=== PATIENT | female | born 1970 | race Caucasian/White ===

== ENCOUNTER 2019-11-21 13:31 | Inpatient (IN) | payer OTHER, SELFPAY ==
[2019-11-21 14:24] LABS: Glucose Urine UA NEG (NEG); Leukocyte Esterase Urine 1+ (NEG); Nitrite Urine NEG (NEG); Urine Blood 2+ (NEG); Urine Ketones NEG (NEG); Urine Protein NEG (NEG-TRACE)
[2019-11-21 14:31] LABS: Appearance Urine HAZY; Color Urine YELLOW
[2019-11-21 14:49] VITALS: BP 136/70; PULSE 70; RESP 16; TEMP 36.7; O2SAT 100; BMI 36.6
[2019-11-21 14:56] LABS: Squamous Epithelial Cell Urine 2+ /LPF
[2019-11-21 14:57] LABS: Amorphous Sediment Urine 1+ /LPF
--- NOTE | 2019-11-21 16:06 | ED_ITS ---
HPI - Female Genitourinary General Chief complaint: Urogenital-Female Stated complaint: FLANK PAIN Time Seen by Provider: 11/21/19 16:02 Source: patient Mode of arrival: ambulatory Limitations: no limitations History of Present Illness HPI Narrative: 49 y/o female presenting with dysuria and low back pain that started today. She also reports urinary frequency and urgency. She reports back pain is worse with movement and when reaching back to touch it. She denies fevert, chills, N/V/D, abdominal pain. No vaginal discharge or vaginal bleeding. No hematuria. Positive history of kidney stones in the past requiring lithotripsy. Related Data Home Medications Medication Instructions Recorded Confirmed amitriptyline 25 mg tablet 25 mg PO BEDTIME 11/06/19 oxybutynin chloride 10 mg 10 mg PO BID 11/06/19 tablet,extended release 24 hr topiramate 50 mg tablet 50 mg PO DAILY 11/06/19 Previous Rx's Medication Instructions Recorded nitrofurantoin monohyd/m-cryst 100 mg PO Q12H 7 Days #14 cap 11/21/19 [Macrobid] phenazopyridine [Pyridium] 100 mg PO TID PRN #6 tab 11/21/19 Allergies Allergy/AdvReac Type Severity Reaction Status Date / Time Latex, Natural Rubber Allergy Intermediate RASH Unverified 10/26/19 18:39 [LATEX, NATURAL RUBBER] Review of Systems Review of Systems: Constitutional: No Fever, No Chills ENT/Mouth: No sore throat, No Rhinorrhea, No Swallowing Difficulty Eyes: No Eye Pain, No Swelling, No Redness Cardiovascular: No Chest Pain, No SOB, No Orthopnea, No Edema Respiratory: No Cough, No Sputum, No Wheezing, No dyspnea Gastrointestinal: No Nausea, No Vomiting, No Diarrhea, No abdominal Pain, No Hematochezia, No Melena Genitourinary: + Dysuria, + Urinary Frequency, No Hematuria Musculoskeletal: No joint pain, +Myalgias (left lwower back) Skin: No Skin Lesions, No rash Neuro: No Weakness, No Numbness, No Dizziness, No Headache Psych: No Anxiety/Panic, No Depression Heme/Lymph: No Bruising, No Lymphadenopathy Endocrine: + Polyuria, No Polydipsia PMFSH Past Medical History Attestation statement: The following information was validated with the patient. Surgical History Hx of laparoscopy Hx of lithotripsy Hx of tubal ligation Family History Family History (Updated 11/06/19 @ 17:08 by Mandi Radford Theron) Mother Hx of diabetes mellitus Maternal Grandfather Family hx of prostate cancer Paternal Uncle Family hx of prostate cancer History of skin cancer Social History Social History Smoking Status: Never smoker Use of substances other than those prescribed or required for medical reasons: No Advance Directives: No Advance Directives Information Provided: No Physical Exam Vital Signs: Vital Signs: Vital Signs Temp Pulse Resp BP Pulse Ox 11/21/19 18:00 97.9 F 84 16 126/78 99 11/21/19 14:49 98.0 F 70 16 136/70 100 Body Mass Index 36.6 Appearance: Alert. Oriented X3. No acute distress. Eyes: Pupils equal, round and reactive to light. ENT: Pharynx normal. Neck: Normal inspection. Neck supple. CVS: Normal heart rate and rhythm. Pulses normal. Respiratory: No respiratory distress. Breath sounds normal. Abdomen: Soft and nontender. +BS x4 Skin: Skin warm and dry. Normal skin color. Normal skin turgor. No rashes. Back: normal inspection. No CVA tenderness. Left lumbar soft tissue tenderness. full ROM. Extremities: No lower extremity edema. Neuro: Oriented X 3. No motor deficit. No sensory deficit. exam deferred Course Course Course Narrative: patient presenting with 1 day of dysuria and low back pain. she appears non-toxic and VS are within normal limits. Exam reveals no CVA tendernss. Less likely kidney stones or pyelonephritis. UA pending. Reevaluation(s) Reevaluation #1: UA positive for infection and blood. She is requesting a CT scan to evaluate for kidney stones. She has a history of them and reports that the pain she was experiencing this morning was similar to her previous experience. She denies pain at this time and appears well. Reevaluation #2: CT scan shows: Bilateral hydronephrosis. Hydronephrosis is more significant in the right kidney than the left. The hydronephrosis is due to obstructing stones in both collecting systems. The stone on the right is in the distal right ureter measuring 1.4 x 0.6 cm. The stone the left measures 2 mm at the left ureterovesical junction. She will liekly require admission for intervention. Labs, IVF, IV abx ordered. Will sign out to Nimisha Dee to call hospitalist when workup complete for admission. Will need to touch base with Urology as well. Signed out to Nimisha Dee LEAD SYSTEMS ENGINEER for further management. MDM - Female Genitourinary Differential Diagnosis Differential diagnosis: Likely urinary tract infection, bacterial vaginosis, trichomoniasis, cervicitis, ovarian cyst, vaginitis, ruptured ovarian cyst, cyst of Bartholin's gland, cystitis and dysmenorrhea Medical Records Attestation: I reviewed the patient's medical records. Lab Data Labs: Lab Results 11/21/19 Range/Units 14:02 Urine Color YELLOW Urine Appearance HAZY Urine pH 6.0 (5.0-8.0) Ur Specific [place] 1.020 (1.005-1.025) Urine Protein NEG (NEG-TRACE) MG/DL Urine Glucose (UA) NEG (NEG) MG/DL Urine Ketones NEG (NEG) MG/DL Urine Blood 2+ H (NEG) Urine Nitrite NEG (NEG) Ur Leukocyte Esterase 1+ H (NEG) Urine RBC 10-14 H (0) /HPF Urine WBC 10-14 H (0-4) /HPF Ur Squamous Epith Cells 2+ /LPF Amorphous Sediment 1+ /LPF Urine Bacteria NONE /LPF Critical Care Time Critical Care Time Critical Care Time: No Discharge Plan Discharge Clinical Impression: Urinary tract infection Qualifiers: Urinary tract infection type: acute cystitis Hematuria presence: with hematuria Qualified Code(s): N30.01 - Acute cystitis with hematuria Patient Disposition: Home, Self-Care Instructions: Urinary Tract Infection in Women (ED) Additional Instructions: Stay hydrated. No sexual contact for at least 1 week. If you have worsening pain despite antibiotics, call your doctor or come back to the ER for further evaluation. Prescriptions: New nitrofurantoin monohyd/m-cryst [Macrobid] 100 mg capsule 100 mg PO Q12H 7 Days Qty: 14 RF: 0 phenazopyridine [Pyridium] 100 mg tablet 100 mg PO TID PRN (Reason: pain) Qty: 6 RF: 0
--- NOTE | 2019-11-21 16:38 | CT_ITS ---
EXAMINATION: CT ABDOMEN AND PELVIS WITHOUT CONTRAST CLINICAL INFORMATION: left flank pain +UA, hx kidney stones requiring lithotripsy COMPARISON: CT abdomen pelvis 01/13/2014 TECHNIQUE: Multidetector volumetric imaging was performed from the superior aspect of the liver through the pubic symphysis. Sagittal and coronal reformatted images were obtained on the technologist's workstation. This CT examination was performed using dose optimization techniques as appropriate, variously including the following: *Automated exposure control *Adjustment of mA and/or kV according to patient size (this includes techniques or standardized protocols for targeted exams where dose is matched to indication/reason for exam; i.e. extremities or head) *Use of iterative reconstruction technique DLP: 810 mGy-cm FINDINGS: LUNG BASES: The visualized lung bases are unremarkable. LIVER, GALLBLADDER, AND BILIARY TREE: The liver is normal in size, shape, and attenuation. No focal hepatic lesion or biliary ductal dilatation is present. The gallbladder is unremarkable with no evidence of radiopaque gallstones, gallbladder wall thickening, or obvious pericholecystic inflammatory changes. PANCREAS: Unremarkable. SPLEEN: Unremarkable. ADRENAL GLANDS: Unremarkable. KIDNEYS AND URETERS: Right kidney: There is moderate to marked hydronephrosis of right kidney with distention renal pelvis and calyces and the right-sided hydroureter. This is due to an obstructing stone in the proximal right ureter at the level the pelvic brim. This stone measures 1.4 cm in length by 0.6 cm transverse, sagittal image 76. No additional stone in the right collecting system. Left kidney: There is mild hydronephrosis of left kidney. There is distention of the renal pelvis calyces and the left ureter to the ureterovesical junction. There is a 2 mm obstructing stone the left ureterovesical junction axial image 652 series 4. There is no additional stone in the left collecting system. BLADDER: Unremarkable. GASTROINTESTINAL TRACT: The small and large bowel are unremarkable. The appendix is unremarkable. ABDOMINAL WALL: No significant hernia is appreciated. LYMPH NODES: Normal. VASCULAR: Unremarkable. PELVIC VISCERA: Unremarkable. OSSEOUS STRUCTURES: Unremarkable. IMPRESSION: Bilateral hydronephrosis. Hydronephrosis is more significant in the right kidney than the left. The hydronephrosis is due to obstructing stones in both collecting systems. The stone on the right is in the distal right ureter measuring 1.4 x 0.6 cm. The stone the left measures 2 mm at the left ureterovesical junction.
[2019-11-21 18:00] VITALS: BP 126/78; PULSE 84; RESP 16; TEMP 36.6; O2SAT 99
[2019-11-21] MEDS: cefTRIAXone sodium 1 GM in 0.9 % Sodium Chloride 50 ML IV (19:08)
[2019-11-21] MEDS: 0.9 % Sodium Chloride 1,000 ML 999 ML IVCONT (19:08)
[2019-11-21] MEDS: dexAMETHasone sod phosphate 4 MG/ML VIAL 8 MG IVPUSH (19:08)
[2019-11-21] MEDS: Tamsulosin HCL 0.4 MG CAPSULE PO (19:08)
[2019-11-21] MEDS: Ketorolac Tromethamine 30 MG/ML VIAL IVPUSH (19:10)
[2019-11-21 19:11] LABS: MANUAL DIFF FLAG NO
[2019-11-21 19:12] LABS: Basophils Percent Auto 0.2 % (0-2); Eosinophils Percent Auto 0.1 % (0-4); Hematocrit 40.2 % (37-47); Hemoglobin 13.4 g/dl (12.0-16.0); Imm Gran Abs Auto 0.07 X10*3/uL (0.00-0.03); Imm Gran Pct Auto 0.4 % (0.0-0.4); Lymphocytes Absolute Auto 2.4 X10*3/uL (1.2-4.9); Lymphocytes Percent Auto 14.6 % (20-40); Mean Corpuscular HGB Conc 33.3 g/dl (31.0-35.0); Mean Corpuscular Hemoglobin 29.6 pg (27.0-33.0); Mean Corpuscular Volume 88.7 fL (80-98); Mean Platelet Volume 9.7 fL (9.4-12.3); Monocytes Absolute Auto 0.6 X10*3/uL (0.1-1.2); Monocytes Percent Auto 3.6 % (2-11); Neutrophils Absolute Auto 13.4 X10*3/uL (2.0-8.3); Neutrophils Percent Auto 81.1 % (45-73); Platelet Count 290 X10*3/uL (160-400); Red Blood Count 4.53 X10*6/uL (4.20-5.50); Red Cell Distribution Width 13.1 % (11.0-16.0); White Blood Count 16.5 X10*3/uL (4.8-10.8)
[2019-11-21 19:22] LABS: INTERNATIONAL NORM RATIO 1.1 (0.9-1.1)
[2019-11-21 19:24] LABS: Partial Thromboplastin Time 34.7 SEC (24.1-38.0)
[2019-11-21 19:57] LABS: Anion Gap 17 (12-20); Blood Urea Nitrogen 11 mg/dL (9-16); Calcium 9.2 mg/dL (8.4-10.2); Carbon Dioxide 20 mmol/L (22-29); Chloride 104 mmol/L (96-108); Creatinine Clr Calc Pharmacy 82.9; Estimated Glomerular Filt Rate > 60; Glucose Random 98 mg/dL (60-115); Potassium 4.2 mmol/l (3.3-5.1); Sodium 137 mmol/L (135-145)
[2019-11-21 20:00] VITALS: BP 130/71; PULSE 83; RESP 16; TEMP 36.8; O2SAT 98
--- NOTE | 2019-11-21 20:00 | PM.IMHP ---
History of Present Illness Date of Service: 11/21/19 <Christy Mathews NP - Last Filed: 11/21/19 20:17> Chief Complaint: Flank pain <Christy Mathews NP - Last Filed: 11/21/19 20:17> 49-year-old woman presented to the ER with complaints of abdominal and flank pain. She reports that over the last several days she has had left-sided flank pain with dysuria and frequency of urine along with nausea. She denies fever, chills, nausea, vomiting, diarrhea however she did report some dizziness. She does have a history of renal stones in the past with lithotripsy in [place]. Abdominal pelvic CT showed bilateral hydronephrosis more to the right kidney. She does have an obstructive stone in both collecting systems. She has a 2 mm stone to the left at the left ureterovesical junction. She is noted to have an elevated whiteblood cell count 16.5. Positive urinalysis. No fever. She was given tamsulosin, IV fluids, dexamethasone, ceftriaxone and Toradol. She will be admitted for further management treatment of UTI with obstructive stone. <Christy Mathews NP - Last Filed: 11/21/19 20:17> Review of Systems Review of Systems: Reports fever, chills respiratory denies any shortness of breath coverage production cardiovascular is adjustment of any PND or edema gastrointestinal nausea genitourinary see HPI musculoskeletal denies any joint pain or swelling neuropsych denies any weakness or seizures all other systems reviewed are negative <Christy Mathews NP - Last Filed: 11/21/19 20:17> [facility] Medical History: Medical History Depression Renal calculi <Christy Mathews NP - Last Filed: 11/21/19 20:17> Functional capacity: independent ambulation <Christy Mathews NP - Last Filed: 11/21/19 20:17> Family History: Family History Mother Hx of diabetes mellitus Maternal Grandfather Family hx of prostate cancer Paternal Uncle Family hx of prostate cancer History of skin cancer <MAMTA Saucedo Last Filed: 11/21/19 20:17> Surgical History: Surgical History Hx of laparoscopy Hx of lithotripsy Hx of tubal ligation <Christy Mathews NP - Last Filed: 11/21/19 20:17> Social History: Social History Household Members: Children Housing: House Smoking Status: Never smoker <Christy Mathews NP - Last Filed: 11/21/19 20:17> Meds Allergies/Adverse reactions: Allergies Allergy/AdvReac Type Severity Reaction Status Date / Time Latex, Natural Rubber Allergy Intermediate RASH Verified 11/21/19 19:38 [LATEX, NATURAL RUBBER] <Christy Mathews NP - Last Filed: 11/21/19 20:17> Home medications: Home Medications Medication Instructions Recorded Confirmed Type amitriptyline 25 mg tablet 25 mg PO BEDTIME 11/06/19 11/21/19 History oxybutynin chloride 10 mg 10 mg PO BID 11/06/19 11/21/19 History tablet,extended release 24 hr topiramate 50 mg tablet 50 mg PO DAILY 11/06/19 11/21/19 History nabumetone 750 mg PO BID PRN 11/21/19 11/21/19 History sumatriptan succinate [Imitrex] 100 mg PO DAILY PRN 11/21/19 11/21/19 History <Christy Mathews NP - Last Filed: 11/21/19 20:17> Physical Exam Vital Signs and Narrative: Vital Signs: Last Vital Signs Temp 97.9 F 11/21/19 18:00 Pulse 84 11/21/19 18:00 Resp 16 11/21/19 18:00 BP 126/78 11/21/19 18:00 Pulse Ox 99 11/21/19 18:00 Body Mass Index 36.6 <Christy Mathews NP - Last Filed: 11/21/19 20:17> Appearing in no acute distress head is normocephalic atraumatic eyes pupils are PERRLA sclera is anicteric mouth throat mucous membranes are intact and moist neck is supple no lymphadenopathy, no JVD noted lung sounds are clear to auscultation heart regular rate rhythm, clear S1, S2 positive bowel sounds, abdomen is soft, nontender genitourinary left-sided flank pain, lower abdominal pain. neuro patient is alert x3, no focal deficits <Christy Mathews NP - Last Filed: 11/21/19 20:17> Results Labs Labs: Laboratory Tests 11/21/19 11/21/19 11/21/19 14:02 19:02 19:02 WBC 16.5 H RBC 4.53 Hgb 13.4 Hct 40.2 MCV 88.7 MCH 29.6 MCHC 33.3 RDW 13.1 Plt Count 290 MPV 9.7 Immature Gran % (Auto) 0.4 Neut % (Auto) 81.1 H Lymph % (Auto) 14.6 L [place] % (Auto) 3.6 Eos % (Auto) 0.1 Baso % (Auto) 0.2 Lymph # (Auto) 2.4 [place] # (Auto) 0.6 Eos # (Auto) 0.0 Baso # (Auto) 0.0 Abs Immat Gran (auto) 0.07 H Absolute Neuts (auto) 13.4 H Absolute Nucleated RBC 0.000 Nucleated RBC % (auto) 0.0 PT 13.0 INR 1.1 APTT 34.7 Sodium Potassium Chloride Carbon Dioxide Anion Gap BUN Creatinine Estim Creat Clear Calc Estimated GFR Random Glucose Calcium Urine Color YELLOW Urine Appearance HAZY Urine pH 6.0 Ur Specific [place] 1.020 Urine Protein NEG Urine Glucose (UA) NEG Urine Ketones NEG Urine Blood 2+ H Urine Nitrite NEG Ur Leukocyte Esterase 1+ H Urine RBC 10-14 H Urine WBC 10-14 H Ur Squamous Epith Cells 2+ Amorphous Sediment 1+ Urine Bacteria NONE 11/21/19 19:02 WBC RBC Hgb Hct MCV MCH MCHC RDW Plt Count MPV Immature Gran % (Auto) Neut % (Auto) Lymph % (Auto) [place] % (Auto) Eos % (Auto) Baso % (Auto) Lymph # (Auto) [place] # (Auto) Eos # (Auto) Baso # (Auto) Abs Immat Gran (auto) Absolute Neuts (auto) Absolute Nucleated RBC Nucleated RBC % (auto) PT INR APTT Sodium 137 Potassium 4.2 Chloride 104 Carbon Dioxide 20 L Anion Gap 17 BUN 11 Creatinine 0.86 Estim Creat Clear Calc 82.9 Estimated GFR > 60 Random Glucose 98 Calcium 9.2 Urine Color Urine Appearance Urine pH Ur Specific [place] Urine Protein Urine Glucose (UA) Urine Ketones Urine Blood Urine Nitrite Ur Leukocyte Esterase Urine RBC Urine WBC Ur Squamous Epith Cells Amorphous Sediment Urine Bacteria <Christy Mathews NP - Last Filed: 11/21/19 20:17> Assessment and Plan (1) Urinary tract infection: Qualifiers: Hematuria presence: with hematuria Urinary tract infection type: acute cystitis Qualified Code(s): N30.01 - Acute cystitis with hematuria <Christy Mathews NP - Last Filed: 11/21/19 20:17> Problem details: Likely staph saprophyticus pathogen Not bacteremic by report <Crhisty Mathews NP - Last Filed: 11/21/19 20:17> Status: Acute <Christy Mathews NP - Last Filed: 11/21/19 20:17> (2) Calculus of kidney: Status: Acute <Christy Mathews NP - Last Filed: 11/21/19 20:17> (3) Hydronephrosis: Qualifiers: Hydronephrosis type: unspecified Qualified Code(s): N13.30 - Unspecified hydronephrosis <Christy Mathews NP - Last Filed: 11/21/19 20:17> Status: Acute <Christy Mathews NP - Last Filed: 11/21/19 20:17> 49-year-old woman admitted with UTI with bilateral hydronephrosis and 2 mm obstructive stone. Hydronephrosis. Urology consultation. Will likely need lithotripsy for removal of stone. Pyelonephritis. Continues with left flank pain, occasional nausea. Rocephin, follow urine cultures. Depression. Continue home medications. Migraine headaches. Continue Imitrex. DVT prophylaxis with heparin Discussed with Dr. Van Full code <Christy Mathews NP - Last Filed: 11/21/19 20:17>
--- NOTE | 2019-11-21 21:53 | PC.NURSE ---
REPORT CALLED TO BON WALDEN.
--- NOTE | 2019-11-21 21:59 | PC.NURSE ---
BELONGINGS LIST COMPLETE
--- NOTE | 2019-11-21 23:03 | PC.NURSE ---
HOSPITALIST AWARE THAT SHE PUT TRANSFER ORDER ON WRONG PATIENT. INSTRUCTED BY CHARGE NURSE SADIQ TO BRING PATIENT UP TO ROOM. HOSPITALIST AWARE SHE NEEDS TO PUT TRANSFER IN ON CORRECT PATIENT.
[2019-11-21 23:14] VITALS: BP 165/70; PULSE 95; RESP 19; TEMP 36.4; O2SAT 98
[2019-11-21 23:20] VITALS: TEMP 36
[2019-11-21] MEDS: 0.9 % Sodium Chloride 1,000 ML 100 ML IVCONT (23:21)
[2019-11-22] VITALS (13 sets, daily range): BP systolic 85–134; BP diastolic 47–76; PULSE 69–108; RESP 16–19; TEMP 36–37.2; O2SAT 93–99; BMI 36.6
[2019-11-22 07:00] LABS: MANUAL DIFF FLAG NO
[2019-11-22 07:11] LABS: Basophils Percent Auto 0.1 % (0-2); Hematocrit 37.5 % (37-47); Hemoglobin 12.4 g/dl (12.0-16.0); Imm Gran Abs Auto 0.07 X10*3/uL (0.00-0.03); Imm Gran Pct Auto 0.5 % (0.0-0.4); Lymphocytes Absolute Auto 1.6 X10*3/uL (1.2-4.9); Lymphocytes Percent Auto 12.1 % (20-40); Mean Corpuscular HGB Conc 33.1 g/dl (31.0-35.0); Mean Corpuscular Hemoglobin 29.5 pg (27.0-33.0); Mean Corpuscular Volume 89.1 fL (80-98); Mean Platelet Volume 10.1 fL (9.4-12.3); Monocytes Absolute Auto 0.3 X10*3/uL (0.1-1.2); Monocytes Percent Auto 2.4 % (2-11); Neutrophils Absolute Auto 11.3 X10*3/uL (2.0-8.3); Neutrophils Percent Auto 84.9 % (45-73); Platelet Count 297 X10*3/uL (160-400); Red Blood Count 4.21 X10*6/uL (4.20-5.50); Red Cell Distribution Width 12.9 % (11.0-16.0); White Blood Count 13.4 X10*3/uL (4.8-10.8)
[2019-11-22] MEDS: 0.9 % Sodium Chloride 1,000 ML 100 ML IVCONT ×2 (07:20→17:08)
[2019-11-22 07:31] LABS: Anion Gap 12 (12-20); Blood Urea Nitrogen 13 mg/dL (9-16); Calcium 8.7 mg/dL (8.4-10.2); Carbon Dioxide 24 mmol/L (22-29); Chloride 109 mmol/L (96-108); Estimated Glomerular Filt Rate > 60; Glucose Random 132 mg/dL (60-115); Potassium 4.2 mmol/l (3.3-5.1); Sodium 141 mmol/L (135-145)
--- NOTE | 2019-11-22 09:31 | HP_ITS ---
DATE OF SERVICE: 11/21/2019 HISTORY OF PRESENT ILLNESS: The patient is a 49-year-old female with a chief complaint of flank pain. The patient had a CAT scan done in the emergency room, which demonstrated bilateral hydronephrosis with bilateral obstructing stones in the ureters. Discussed this in detail with the patient. The patient currently is n.p.o. Plan for the patient is to undergo cystoscopy, bilateral retrograde ureteroscopy, laser stone ablation, and stent placement. All questions answered. Informed consent obtained. REVIEW OF SYSTEMS: Bilateral flank pain. MEDICATIONS: Amitriptyline 25 mg at bedtime, oxybutynin chloride 10 mg p.o. b.i.d., and topiramate 50 mg daily. ALLERGIES: LATEX AND NATURAL RUBBER. FAMILY HISTORY: Noncontributory. SURGICAL HISTORY: History of laparoscopy, history of lithotripsy, and history of tubal ligation. SOCIAL HISTORY: Nonsmoker. Denies illicit drugs. PHYSICAL EXAMINATION: VITAL SIGNS: Stable. HEENT: Normocephalic and atraumatic. NECK: Supple. CV: Palpable pulse. No arrhythmias appreciated. LUNGS: Breathing on room air in no apparent distress. ABDOMEN: Soft and nontender. SKIN: Warm and dry. BACK: CVA tenderness. EXTREMITIES: Full ROM. NEUROLOGIC: Alert and oriented x3. ASSESSMENT: The patient with bilateral obstructing stones currently. PLAN: Cystoscopy, bilateral retrograde ureteroscopy, laser stone ablation, and stent placement. MD ARTEMIO Delgado III/LUCY / [id number]
--- NOTE | 2019-11-22 09:37 | HO.ANESPROP2 ---
[facility] Past Medical History Medical History (Updated 11/21/19 @ 20:04 by Christy Mathews NP) Depression Renal calculi Functional capacity: independent ambulation Family History Family History (Updated 11/06/19 @ 17:08 by KELTON Gage) Mother Hx of diabetes mellitus Maternal Grandfather Family hx of prostate cancer Paternal Uncle Family hx of prostate cancer History of skin cancer Surgical History Surgical History Hx of laparoscopy Hx of lithotripsy Hx of tubal ligation Social History Social History Household Members: Children Housing: House Do you presently have visiting nurse or other home services: No Smoking Status: Never smoker Use of substances other than those prescribed or required for medical reasons: No Currently Displaying Signs/Symptoms of Drug Intoxication Withdrawal: No Have you been hit, kicked, punched, or otherwise hurt by someone within the past year? If so, by whom?: No Do you feel safe in your current relationship?: Yes Is there a partner from a previous relationship who is making you feel unsafe now?: No Are you made to feel afraid or neglected: No Advance Directives: No Advance Directives Information Provided: No Do you have thoughts of harming others: None Do you have a plan to hurt others: No Plan Recently lost weight without trying: No Meds Allergies Allergy/AdvReac Type Severity Reaction Status Date / Time Latex, Natural Rubber Allergy Intermediate RASH Verified 11/21/19 19:38 [LATEX, NATURAL RUBBER] Home Medications Medication Instructions Recorded Confirmed Type amitriptyline 25 mg tablet 25 mg PO BEDTIME 11/06/19 11/21/19 History oxybutynin chloride 10 mg 10 mg PO BID 11/06/19 11/21/19 History tablet,extended release 24 hr topiramate 50 mg tablet 50 mg PO DAILY 11/06/19 11/21/19 History nabumetone 750 mg PO BID PRN 11/21/19 11/21/19 History sumatriptan succinate [Imitrex] 100 mg PO DAILY PRN 11/21/19 11/21/19 History Exam Exam Date and Time: November 22, 2019 0937 Height,Weight and Vital Signs: Height 5 ft 2 in Weight 90.718 kg Last Vital Signs Temp 98.9 F 11/22/19 09:19 Pulse 81 11/22/19 09:19 Resp 16 11/22/19 09:19 BP 121/58 L 11/22/19 09:19 Pulse Ox 97 11/22/19 09:19 Pertinent Lab Results Pertinent Lab Results: Laboratory Tests 11/21/19 11/21/19 11/21/19 14:02 19:02 19:02 WBC 16.5 H RBC 4.53 Hgb 13.4 Hct 40.2 MCV 88.7 MCH 29.6 MCHC 33.3 RDW 13.1 Plt Count 290 MPV 9.7 Immature Gran % (Auto) 0.4 Neut % (Auto) 81.1 H Lymph % (Auto) 14.6 L [place] % (Auto) 3.6 Eos % (Auto) 0.1 Baso % (Auto) 0.2 Lymph # (Auto) 2.4 [place] # (Auto) 0.6 Eos # (Auto) 0.0 Baso # (Auto) 0.0 Abs Immat Gran (auto) 0.07 H Absolute Neuts (auto) 13.4 H Absolute Nucleated RBC 0.000 Nucleated RBC % (auto) 0.0 PT 13.0 INR 1.1 APTT 34.7 Sodium Potassium Chloride Carbon Dioxide Anion Gap BUN Creatinine Estim Creat Clear Calc Estimated GFR Random Glucose Calcium Urine Color YELLOW Urine Appearance HAZY Urine pH 6.0 Ur Specific [place] 1.020 Urine Protein NEG Urine Glucose (UA) NEG Urine Ketones NEG Urine Blood 2+ H Urine Nitrite NEG Ur Leukocyte Esterase 1+ H Urine RBC 10-14 H Urine WBC 10-14 H Ur Squamous Epith Cells 2+ Amorphous Sediment 1+ Urine Bacteria NONE 11/21/19 11/22/19 11/22/19 19:02 06:09 06:09 WBC 13.4 H RBC 4.21 Hgb 12.4 Hct 37.5 MCV 89.1 MCH 29.5 MCHC 33.1 RDW 12.9 Plt Count 297 MPV 10.1 Immature Gran % (Auto) 0.5 H Neut % (Auto) 84.9 H Lymph % (Auto) 12.1 L [place] % (Auto) 2.4 Eos % (Auto) 0.0 Baso % (Auto) 0.1 Lymph # (Auto) 1.6 [place] # (Auto) 0.3 Eos # (Auto) 0.0 Baso # (Auto) 0.0 Abs Immat Gran (auto) 0.07 H Absolute Neuts (auto) 11.3 H Absolute Nucleated RBC 0.000 Nucleated RBC % (auto) 0.0 PT INR APTT Sodium 137 141 Potassium 4.2 4.2 Chloride 104 109 H Carbon Dioxide 20 L 24 Anion Gap 17 12 BUN 11 13 Creatinine 0.86 0.75 Estim Creat Clear Calc 82.9 95.0 Estimated GFR > 60 > 60 Random Glucose 98 132 H Calcium 9.2 8.7 Urine Color Urine Appearance Urine pH Ur Specific [place] Urine Protein Urine Glucose (UA) Urine Ketones Urine Blood Urine Nitrite Ur Leukocyte Esterase Urine RBC Urine WBC Ur Squamous Epith Cells Amorphous Sediment Urine Bacteria Airway Mallampati Class: II TM Dist: >3cm Neck ROM: Full Adult Head Mouth w/Numbe Teeth: 1. Lower left chipped molar Loose/Missing/Broken Teeth: Yes (Missing 2 teeth) Heart: RRR Lungs: CTA BL Assessment and Plan Assessment Anesthesia Assessment: Anesthesia Plan Discussed and Chart Reviewed Final Anesthetic Review NPO: Yes ASA Class: II Final Preanesthetic Review: No Changes in Pt Med Stat and Meds/Allgs Chart Reviewed Patient Risk: Intermediate Procedure Risk: Intermediate Anesthetic Plan Anesthetic Plan: GA Disposition: Standard PACU
--- NOTE | 2019-11-22 09:38 | MHC.CM.PN ---
PATIENT OFF UNIT AT TIME OF ASSESSMENT ATTEMPT. CONTACT CARD FOR THIS EARLY CHILDHOOD LEFT BEDSIDE. CASE MANAGEMENT NAMES WRITTEN ON WHITE BOARD. PER REVIEW OF CHART, PATIENT IS INDEPENDENT WITH HER ADLS. NO ANTICIPATED NEED FOR SERVICES.
[2019-11-22] MEDS: levoFLOXacin/D5W 500 MG/100 ML PIGGYBACK 100 MG IV (09:42)
[2019-11-22] MEDS: Gentamicin Sulfate/NaCl 80 MG/100 ML PIGGYBACK 100 MG IV (09:42)
--- NOTE | 2019-11-22 09:46 | FL_ITS ---
EXAMINATION: Intraoperative fluoroscopy CLINICAL INFORMATION: Bilateral renal stones COMPARISON: CT abdomen pelvis 11/21/2019 TECHNIQUE: Intraoperative fluoroscopy was provided for use by Dr. Craft. No images were saved to PACS. A radiologist was not present during imaging. Today's dictation is only for administrative purposes to document intraoperative fluoroscopic usage. TOTAL FLUOROSCOPIC TIME: 2 minutes and 2 seconds FINDINGS Intraoperative fluoroscopy provided for use by Dr. Craft. Please see operative note for detailed findings.
--- NOTE | 2019-11-22 10:07 | MHC.SHP ---
Pre-Procedural Eval Section A The patient is an INPATIENT: Yes Section B Chief Complaint: Uti, Hydronephrosis Allergies: Allergies Allergy/AdvReac Type Severity Reaction Status Date / Time Latex, Natural Rubber Allergy Intermediate RASH Verified 11/21/19 19:38 [LATEX, NATURAL RUBBER] Plan Diagnosis/Plan: Unchanged Patient has been examined and remains a candidate for the planned procedure
--- NOTE | 2019-11-22 11:03 | PM.OP ---
Brief Operative Note Date of procedure: 11/22/19 Pre-op diagnosis: bilateral ureteral stones with hydro Post-op diagnosis: other (right urteral stone with hydro) Procedure: cystocopy right retrograde ureteroscopy, laser stone extraction and stent placement;left retrograde ,ureteroscopy, stent Implants: two 6 fr x 24 cm Surgeon: Remy Craft III, MD Anesthesia: GLMA Pathology: other (right stone) Condition: stable Disposition: floor
[2019-11-22] MEDS: Acetaminophen 325 MG TABLET 650 MG PO (11:46)
--- NOTE | 2019-11-22 14:18 | MHC.CM.PN ---
PER PHYSICIAN ROUNDS, PATIENT WILL LIKELY REMAIN FOR 2 MORE DAYS. CURRENTLY IN UROLOGY PROCEDURE. CASE MANAGEMENT FOLLOWING.
--- NOTE | 2019-11-22 14:47 | HO.PM.IMPN ---
Subjective Subjective Date of Service: 11/22/19 Interval History: pyelonephritis, hydronephrosis Review of Systems patient patient denies any chest pain or shortness of breath has some flank discomfort otherwise feeling better Physical Exam Vital Signs: Vital Signs: Vital Signs Temp Pulse Resp BP Pulse Ox 11/22/19 12:12 98.3 F 75 16 115/74 98 11/22/19 12:08 80 16 120/51 L 97 11/22/19 12:00 97.4 F 75 18 127/62 98 11/22/19 11:53 73 16 134/76 98 11/22/19 11:23 84 16 85/54 L 94 11/22/19 11:18 83 16 125/76 93 11/22/19 11:13 92 16 123/67 93 11/22/19 11:08 96.8 F 95 16 119/69 95 11/22/19 09:19 98.9 F 81 16 121/58 L 97 11/22/19 08:00 97.1 F 69 18 109/56 L 98 11/22/19 04:00 98.0 F 108 H 19 109/47 L 97 11/21/19 23:20 96.8 F 11/21/19 23:14 97.5 F 95 19 165/70 H 98 11/21/19 20:00 98.3 F 83 16 130/71 98 11/21/19 18:00 97.9 F 84 16 126/78 99 11/21/19 14:49 98.0 F 70 16 136/70 100 Body Mass Index 36.6 physical exam: Cvs: rrr, [id number] , no murmur res: clear to auscultation ,no rhonchii or wheezing abd: no rebound or guarding ,nt, bs present. ext pulses present , no cyanosis :left-sided flank pain Seems improving neuro: axo3 , nonfocal. Objective Data Current Medications Generic Name Dose Route Start Last Admin Trade Name Freq PRN Reason Stop Dose Admin Acetaminophen 650 mg 11/21/19 22:00 11/22/19 11:46 Acetaminophen 325 Mg Tablet PO 650 mg Q6H PRN Administration Pain, Mild (Pain Scale 1-3) Sodium Chloride 1,000 mls @ 100 mls/hr 11/21/19 22:00 11/22/19 07:20 Ns IVCONT 100 mls/hr .Q10H LINDSEY Administration Ceftriaxone Sodium 1 gm/ 50 mls @ 100 mls/hr 11/22/19 18:00 Sodium Chloride IV Q24H LINDSEY Lactated Ringer's 1,000 ml in 1,000 mls @ 20 mls/hr 11/22/19 09:50 11/22/19 09:48 Lr IVCONT 20 mls/hr .Q24H LINDSEY Administration Non-Formulary Medication 750 mg 11/21/19 22:00 Nabumetone PO BID PRN Pain (Scale Score 4-6) Ondansetron HCl 4 mg 11/21/19 22:00 Ondansetron Hcl 4 Mg/2 Ml Vial IVPUSH Q8H PRN Nausea and Vomiting Oxycodone HCl 5 mg 11/21/19 22:00 Oxycodone Hcl Immed Release 5 Mg Tablet PO Q6H PRN Pain and Fever Pharmacy Consult 1 each 11/21/19 18:58 Consult Rx Perform Med Rec MISCELLANE ONCE PRN Consult order Sodium Chloride 3 ml 11/22/19 00:00 11/22/19 13:30 0.9 % Sodium Chloride Flush 3 Ml Syringe IVFLUSH Not Given QSHIFT LINDSEY Sumatriptan Succinate 100 mg 11/21/19 22:00 Sumatriptan Succinate 100 Mg Tablet PO DAILY PRN Headache Labs CBC & Chem 7: 11/22/19 06:09 11/22/19 06:09 Microbiology Microbiology Results: Microbiology 11/21/19 14:01 Urine clean catch - Clean Catch Midstream Urine Culture - Preliminary Staphylococcus species Assessment and Plan (1) Urinary tract infection: Problem details: Likely staph saprophyticus pathogen Not bacteremic by report Status: Acute (2) Hydronephrosis: Status: Acute Assessment and Plan: 49-year-old woman admitted with UTI with bilateral hydronephrosis and 2 mm obstructive stone. Hydronephrosis. going for lithotripsy for removal of stone. Pyelonephritis. Continues with left flank pain, occasional nausea. Rocephin, follow urine cultures. Depression. Continue home medications. Migraine headaches. Continue Imitrex. DVT prophylaxis with heparin
--- NOTE | 2019-11-22 16:36 | OP_ITS ---
SURGEON: Remy Craft III, MD PREOPERATIVE DIAGNOSIS: Bilateral ureteral stones with hydronephrosis. POSTOPERATIVE DIAGNOSIS: PROCEDURE PERFORMED: Cystoscopy, right retrograde, ureteroscopy, laser stone ablation, stent placement, left retrograde, left ureteroscopy, and left stent placement. ESTIMATED BLOOD LOSS: None. COMPLICATIONS: None. ANESTHESIA: General. ASSISTANTS: SPECIMENS: POSTOPERATIVE DIAGNOSES: Right ureteral stone with hydronephrosis. COMPLICATIONS: None. DRAINS: Bilateral 6 x 24 cm double-J stents. DESCRIPTION OF PROCEDURE: The patient was taken to the operating room. After adequate anesthesia was obtained, a time-out done demonstrating correct patient, correct procedure. Following this, the patient underwent initially cystoscopy via right retrograde demonstrating obstructing stone, cannot get the wire to go past, therefore underwent ureteroscopy, stone was encountered, fractured with laser and fragments were removed with a flat wire basket. Rest of the ureter was checked, there was no further significant stone, there was stone dust from dusting method being used. The patient had a 6-Romanian x 24 cm double-J stent placed in good position by both fluoroscopy and cystoscopy. Subsequently, patient underwent left retrograde, it demonstrated minimal hydroureter. No specific filling defects but the stone was described as small on the left side. The patient underwent distal dilatation followed by ureteroscopy to the renal pelvis with no stones being seen. Notably, the patient was no longer complaining of left-sided flank pain prior to the procedure, although she denied passing the stone. The patient had a 6-Romanian x 24 cm double-J stent placed in good position by both fluoroscopy and cystoscopy. The patient tolerated procedure well without complications. SPECIMEN: Right-sided stone sent to pathology. MD ARTEMIO Delgado III/LUCY / [id number]
[2019-11-22] MEDS: oxyCODONE HCl Immed Release 5 MG TABLET PO (17:05)
[2019-11-22] MEDS: cefTRIAXone sodium 1 GM in 0.9 % Sodium Chloride 50 ML IV (17:08)
[2019-11-23] VITALS: BP 115/51; PULSE 84; RESP 16; TEMP 36.7; O2SAT 100
[2019-11-23] MEDS: 0.9 % Sodium Chloride 1,000 ML 100 ML IVCONT ×2 (00:36→10:25)
[2019-11-23] MEDS: oxyCODONE HCl Immed Release 5 MG TABLET PO (00:43)
[2019-11-23] MEDS: 0.9 % Sodium Chloride Flush 3 ML SYRINGE IVFLUSH (00:54)
[2019-11-23 04:00] VITALS: BP 119/58; PULSE 89; RESP 16; TEMP 37.1; O2SAT 99
--- NOTE | 2019-11-23 07:19 | HO.POSTANES ---
Post Anesthesia Evaluation Post Anesthesia Evaluation Vital Signs: Vital Signs Temp Pulse Resp BP Pulse Ox 11/23/19 04:00 98.7 F 89 16 119/58 L 99 11/23/19 00:00 98.1 F 84 16 115/51 L 100 Anesthesia: General Mental Status: Awake Pain Control: Satisfactory Nausea/Vomiting: None Hydration: Adequate Anesthesia-Related Issues: No Anes. Related Issues
[2019-11-23 07:38] VITALS: BP 139/63; PULSE 83; RESP 17; TEMP 36.1; O2SAT 98
[2019-11-23 11:22] VITALS: BP 130/68; PULSE 91; RESP 18; TEMP 36.2; O2SAT 100
--- NOTE | 2019-11-23 12:46 | W.PM.IDCN ---
History of Present Illness Data of Consult Service Date: 11/23/19 Requesting physician: Elvis Blake Primary Care Provider: Zari Clemons MD HPI Reason for consult: UTI She has lithotripsy bilateral stones She has no fever or chills She has staph saprophyticus in urine Review of Systems Review of Systems: Yes all other systems are reviewed and are negative PMFSH Past Medical History Medical History Depression Renal calculi Functional capacity: independent ambulation Family History Family History Mother Hx of diabetes mellitus Maternal Grandfather Family hx of prostate cancer Paternal Uncle Family hx of prostate cancer History of skin cancer Surgical History Surgical History Hx of laparoscopy Hx of lithotripsy Hx of tubal ligation Social History Social History Household Members: Children Housing: House Smoking Status: Never smoker Meds Allergies Allergy/AdvReac Type Severity Reaction Status Date / Time Latex, Natural Rubber Allergy Intermediate RASH Verified 11/21/19 19:38 [LATEX, NATURAL RUBBER] Home Medications Medication Instructions Recorded Confirmed Type amitriptyline 25 mg tablet 25 mg PO BEDTIME 11/06/19 11/21/19 History oxybutynin chloride 10 mg 10 mg PO BID 11/06/19 11/21/19 History tablet,extended release 24 hr topiramate 50 mg tablet 50 mg PO DAILY 11/06/19 11/21/19 History nabumetone 750 mg PO BID PRN 11/21/19 11/21/19 History sumatriptan succinate [Imitrex] 100 mg PO DAILY PRN 11/21/19 11/21/19 History Physical Exam Vital Signs: Vital Signs: Vital Signs Temp Pulse Resp BP Pulse Ox 11/23/19 11:22 97.2 F 91 18 130/68 100 11/23/19 07:38 97.0 F 83 17 139/63 98 11/23/19 04:00 98.7 F 89 16 119/58 L 99 11/23/19 00:00 98.1 F 84 16 115/51 L 100 11/22/19 19:16 97.4 F 70 100/54 L 99 11/22/19 15:15 97.7 F 78 18 105/53 L 98 Body Mass Index 36.6 Const: General: healthy appearing HENMT: Head: Yes normal to inspection Resp: Effort & Inspection: normal respiratory effort Cardio: Rate: regular rate Rhythm: regular rhythm GI: Inspection: Yes normal to inspection and No caput medusae present : General: Yes CVA tenderness Back/Spine/Pelvis: Back: CVA tenderness Skin: General skin exam: no rashes or lesions noted Assessment and Plan (1) Urinary tract infection: Qualifiers: Hematuria presence: with hematuria Urinary tract infection type: acute cystitis Qualified Code(s): N30.01 - Acute cystitis with hematuria Problem details: Likely staph saprophyticus pathogen Not bacteremic by report Status: Acute Bactrim DS po bid for 10 days F/U Urology (2) Calculus of kidney: Status: Acute (3) Hydronephrosis: Qualifiers: Hydronephrosis type: unspecified Qualified Code(s): N13.30 - Unspecified hydronephrosis Status: Acute Results Labs CBC & Chem 7: 11/22/19 06:09 11/22/19 06:09 Microbiology Microbiology Results: Microbiology 11/21/19 14:01 Urine clean catch - Clean Catch Midstream Urine Culture - Final Staphylococcus saprophyticus
--- NOTE | 2019-11-23 13:35 | PM.DS ---
DS: Providers Provider Date of admission: 11/21/19 20:12 Primary care physician: Zari Clemons MD Consults: 11/21/19 22:00 Consult to Physician Routine Consulting Provider: Remy Craft III Reason for consultation: HYDRONEPHROSIS Has provider been notified: No 11/23/19 11:15 Consult to Infectious Diseases Routine Consulting Provider: Gregoria Santiago Reason for consultation: staph saphrophyticus with hydro and stones what abx Has provider been notified: No DS: Diagnosis Discharge Diagnosis (1) Urinary tract infection: Status: Acute Problem details: Likely staph saprophyticus pathogen Not bacteremic by report (2) Calculus of kidney: Status: Acute (3) Hydronephrosis: Status: Acute DS: Summary Hospital Course Hospital Course: 49-year-old woman admitted with UTI with bilateral hydronephrosis due to obstructive stonept seen by Dr. Sandhu and underwent b/l stent placment and lithotripsy of stone pts urine culture grew staph.Saphrophyticus Dr Santiago rec. po bactrim for 10 mdays patient left flank pain has improved rec. to follow up with urology in 2 weeks renal function is stable. Time Spent with Patient Time attestation: Total time spent providing and/or coordinating discharge services: Physical Exam Vital Signs: Vital Signs: Vital Signs Temp Pulse Resp BP Pulse Ox 11/23/19 11:22 97.2 F 91 18 130/68 100 11/23/19 07:38 97.0 F 83 17 139/63 98 11/23/19 04:00 98.7 F 89 16 119/58 L 99 11/23/19 00:00 98.1 F 84 16 115/51 L 100 11/22/19 19:16 97.4 F 70 100/54 L 99 11/22/19 15:15 97.7 F 78 18 105/53 L 98 Body Mass Index 36.6 physical exam:no distress Cvs: regular ,rate ,rythm res: clear to auscultation ,no rhonchii or wheezing abd: no rebound or guarding ,nontender, bs present. ext pulses present , no cyanosis :no left-sided flank pain neuro: axo3 , nonfocal. DS: Data Data Completed and Pending Labs on day of discharge: Labs from last 24 hours 11/22/19 11:03 Stone Source Pending Stone Weight Pending Stone Constituent 1 Pending Stone Constituent 2 Pending Stone Nidus Pending Discharge Plan Discharge Patient Disposition: Home, Self-Care Referrals: Zari Al MD [Primary Care Provider] - Discharge Medications: New phenazopyridine [Pyridium] 100 mg tablet 100 mg PO TID PRN (Reason: pain) Qty: 6 RF: 0 sulfamethoxazole-trimethoprim [Bactrim DS] 800-160 mg tablet 1 tab PO BID Qty: 20 RF: 0 Continued sumatriptan succinate [Imitrex] 100 mg Tablet 100 mg PO DAILY PRN (Reason: Headache) RF: 0 nabumetone 750 mg Tablet 750 mg PO BID PRN (Reason: Pain (Scale Score 4-6)) RF: 0 Discharge Orders: Discharge Order (Routine); Ordered 11/23/19 Ordered By: Elvis Blake Activity on Discharge: As tolerated Patient Instructions: Urinary Tract Infection in Women (ED) Activity Restrictions/Additional Instructions: Stay hydrated. No sexual contact for at least 1 week. If you have worsening pain despite antibiotics, call your doctor or come back to the ER for further evaluation. Visit Report Forms: Patient Portal Discharge page Care Plan Goals: as per discharge plan Health Concerns: follow up with pcp in 1 week and urology in 2 weeks Plan of Treatment: follow up with pcp in 1 week
--- NOTE | 2019-11-23 13:44 | MHC.CM.PN ---
Discharge planned for today, home with no services pt will self arrange transport
[2019-11-26 13:51] LABS: Stone Source RIGHT URETERAL STONE
== END 2019-11-23 14:36 | disposition home or self-care (01) | DRG 446 ==
LOC: HO.ED 20:00 → HO.S3 20:30
PROVIDERS: Internal Medicine; Nurse Practitioner Acute Care; Physician Assistant; Admitting Provider Internal Medicine; Emergency Provider Internal Medicine; PCP Internal Medicine; Referring Provider Urology; Visit Provider Hospitalist
DX: N13.6 Pyonephrosis (principal); B95.7 Other staphylococcus as the cause of diseases classified elsewhere; F32.9 Major depressive disorder, single episode, unspecified; Z87.442 Personal history of urinary calculi
CPT/HCPCS: 36415; 74176; 80048; 81001; 82365; 85025; 85610; 85730; 87086; 87088; 87147; 87186; 88300; 96365; 96375; 99285; C1769; C2617; J1100; J1580; J1885; J1956; J2250; J2405; J3010; Q9967

== ENCOUNTER → 2019-12-07 14:29 | Outpatient (BNVA) | payer OTHER, SELFPAY | PROVIDERS: PCP Internal Medicine; Referring Provider Internal Medicine; Visit Provider Urology | DX: Z46.6 Encounter for fitting and adjustment of urinary device (principal); N20.0 Calculus of kidney | CPT/HCPCS: 52000; 52310; 81002; 99212 ==

== ENCOUNTER 2019-12-13 08:49 | Outpatient (REF) | payer OTHER, SELFPAY ==
--- NOTE | 2019-12-13 08:55 | MM_ITS ---
EXAMINATION: MM SCREENING DIGITAL BREAST TOMOSYNTHESIS, BILATERAL CLINICAL INFORMATION: Screening. Asymptomatic. The lifetime risk of breast cancer based on the Tyrer-Cuzick Model is 8.2%. COMPARISON: Mammography: November 11, 2018 and studies dating back to June 13, 2013 TECHNIQUE: Digital breast tomosynthesis is performed in both the craniocaudal and mediolateral oblique views along with computer-aided detection (CAD). Synthesized 2D images are generated from the tomosynthesis. FINDINGS: The breasts are heterogeneously dense, which may obscure small masses (ACR BI-RADS breast composition Category c). There are no significant masses, abnormal calcifications, or other abnormalities. MM/MM tomosynthesis screening BI IMPRESSION: There are no significant changes from prior study. ASSESSMENT: BI-RADS 1: Negative RECOMMENDATION: Routine annual mammography screening. This patient's information was entered into a reminder system with a target due date for their next mammogram.
== END 2019-12-13 08:50 | disposition home or self-care (01) ==
LOC: HO.MAMMO 08:49
PROVIDERS: PCP Internal Medicine; Visit Provider Internal Medicine
DX: Z12.31 Encounter for screening mammogram for malignant neoplasm of breast (principal)
CPT/HCPCS: 77063; 77067

== ENCOUNTER 2020-01-03 09:29 | Outpatient (REF) | payer OTHER, SELFPAY ==
--- NOTE | 2020-01-03 09:32 | US_ITS ---
EXAMINATION: US RETROPERITONEAL LIMITED (RENAL ONLY) CLINICAL INFORMATION: Calculus of kidney. COMPARISON: CT abdomen and pelvis 11/21/2019. Renal ultrasound 10/28/2015. TECHNIQUE: Real-time imaging of the kidneys. FINDINGS: RIGHT KIDNEY: 10.6 x 3.9 x 4.6 cm (SAG x AP x TRV). The kidney is normal in size, contour, and echogenicity. Renal cortical thickness is normal. There is mild right hydronephrosis and dilatation of the visualized right proximal ureter. This appears decreased from CT scan November 2019. No renal calculi or focal parenchymal lesions. LEFT KIDNEY: 10.7 x 4.8 x 4.5 cm (SAG x AP x TRV). The kidney is normal in size, contour, and echogenicity. Renal cortical thickness is normal. No calculi or focal parenchymal lesions. No hydronephrosis. The previously identified left hydronephrosis on CT November 2019 is no longer seen. US/US renal BI IMPRESSION: No stone seen. Mild right hydronephrosis and dilatation of the visualized right proximal ureter. This appears decreased from November 2019 CT scan. No left hydronephrosis.
[2020-01-03 11:38] LABS: MANUAL DIFF FLAG NO
[2020-01-03 11:47] LABS: Basophils Absolute Auto 0.1 X10*3/uL (0.0-0.2); Basophils Percent Auto 0.6 % (0-2); Eosinophils Absolute Auto 0.1 X10*3/uL (0.0-0.4); Eosinophils Percent Auto 1.1 % (0-4); Hematocrit 40.3 % (37-47); Hemoglobin 13.2 g/dl (12.0-16.0); Imm Gran Abs Auto 0.03 X10*3/uL (0.00-0.03); Imm Gran Pct Auto 0.3 % (0.0-0.4); Lymphocytes Absolute Auto 3.3 X10*3/uL (1.2-4.9); Mean Corpuscular HGB Conc 32.8 g/dl (31.0-35.0); Mean Corpuscular Hemoglobin 29.1 pg (27.0-33.0); Mean Corpuscular Volume 88.8 fL (80-98); Mean Platelet Volume 9.7 fL (9.4-12.3); Monocytes Absolute Auto 0.7 X10*3/uL (0.1-1.2); Monocytes Percent Auto 6.6 % (2-11); Neutrophils Absolute Auto 6.7 X10*3/uL (2.0-8.3); Neutrophils Percent Auto 61.4 % (45-73); Platelet Count 331 X10*3/uL (160-400); Red Blood Count 4.54 X10*6/uL (4.20-5.50); Red Cell Distribution Width 13.3 % (11.0-16.0); White Blood Count 10.9 X10*3/uL (4.8-10.8)
== END 2020-01-03 09:30 | disposition home or self-care (01) ==
LOC: HO.US 09:29
PROVIDERS: Absent Provider Internal Medicine; PCP Internal Medicine; Visit Provider Urology
DX: N20.0 Calculus of kidney (principal); D72.829 Elevated white blood cell count, unspecified
CPT/HCPCS: 36415; 76775; 85025

== ENCOUNTER → 2020-03-05 14:06 | Outpatient (BNVA) | payer OTHER, SELFPAY | PROVIDERS: Visit Provider Urology | DX: N39.41 Urge incontinence (principal); N20.0 Calculus of kidney | CPT/HCPCS: 99212 ==

== ENCOUNTER 2020-03-14 08:14 | Outpatient (REF) | payer OTHER, SELFPAY ==
--- NOTE | 2020-03-14 08:37 | XR_ITS ---
EXAMINATION: XR ABDOMEN KUB CLINICAL INDICATION: Calculus of kidney COMPARISON: Ultrasound 01/03/2020. CT 11/21/2019. TECHNIQUE: AP view of the abdomen. FINDINGS: There are no suspicious calcifications overlying the expected position of either kidney or ureter. Phleboliths are seen in the pelvis. Prominent stool within the colon which partially obscures visualization for calcifications. Nonobstructive bowel gas pattern. No acute osseous abnormality. XR/XR KUB IMPRESSION: No suspicious calcifications to suggest renal or ureteral calculi.
[2020-03-14 08:54] LABS: MANUAL DIFF FLAG NO
[2020-03-14 08:59] LABS: Basophils Absolute Auto 0.1 X10*3/uL (0.0-0.2); Basophils Percent Auto 0.5 % (0-2); Eosinophils Absolute Auto 0.1 X10*3/uL (0.0-0.4); Eosinophils Percent Auto 1.3 % (0-4); Hematocrit 40.1 % (37-47); Hemoglobin 13.5 g/dl (12.0-16.0); Imm Gran Abs Auto 0.03 X10*3/uL (0.00-0.03); Imm Gran Pct Auto 0.3 % (0.0-0.4); Lymphocytes Percent Auto 30.8 % (20-40); Mean Corpuscular HGB Conc 33.7 g/dl (31.0-35.0); Mean Corpuscular Hemoglobin 29.7 pg (27.0-33.0); Mean Corpuscular Volume 88.3 fL (80-98); Mean Platelet Volume 9.5 fL (9.4-12.3); Monocytes Absolute Auto 0.6 X10*3/uL (0.1-1.2); Monocytes Percent Auto 5.8 % (2-11); Neutrophils Absolute Auto 5.9 X10*3/uL (2.0-8.3); Neutrophils Percent Auto 61.3 % (45-73); Platelet Count 298 X10*3/uL (160-400); Red Blood Count 4.54 X10*6/uL (4.20-5.50); Red Cell Distribution Width 13.4 % (11.0-16.0); White Blood Count 9.7 X10*3/uL (4.8-10.8)
[2020-03-14 09:11] LABS: Glucose Urine UA NEG (NEG); Leukocyte Esterase Urine NEG (NEG); Nitrite Urine NEG (NEG); Specific Gravity - Urine >= 1.030 (1.005-1.025); Urine Blood NEG (NEG); Urine Ketones NEG (NEG); Urine Protein NEG (NEG-TRACE)
[2020-03-14 09:12] LABS: Appearance Urine HAZY; Color Urine YELLOW
[2020-03-14 09:23] LABS: Alanine Aminotransferase 14 U/L (0-31); Alkaline Phosphatase 74 U/L (39-117); Anion Gap 10 (12-20); Aspartate Amino Transferase 15 U/L (5-31); Bilirubin Total 0.3 mg/dL (0.0-1.0); Blood Urea Nitrogen 14 mg/dL (9-16); Calcium 8.8 mg/dL (8.4-10.2); Carbon Dioxide 23 mmol/L (22-29); Chloride 108 mmol/L (96-108); Estimated Glomerular Filt Rate > 60; Glucose Fasting 98 mg/dL (60-99); Potassium 4.2 mmol/L (3.3-5.1); Sodium 137 mmol/L (135-145); Total Protein 7.2 g/dL (6.5-8.0)
== END 2020-03-14 08:15 | disposition home or self-care (01) ==
LOC: HO.LAB 08:14
PROVIDERS: PCP Internal Medicine; Visit Provider Internal Medicine
DX: N20.0 Calculus of kidney (principal); D72.829 Elevated white blood cell count, unspecified; G43.909 Migraine, unspecified, not intractable, without status migrainosus; R30.0 Dysuria
CPT/HCPCS: 36415; 74018; 80053; 81003; 85025

== ENCOUNTER 2020-07-26 08:03 | Outpatient (REF) | payer OTHER, SELFPAY ==
[2020-07-26 09:46] LABS: Calcium 9.2 mg/dL (8.4-10.2); Uric Acid 5.5 mg/dL (2.4-5.7)
[2020-07-26 10:45] LABS: Creatinine, mg/dL 203.77; Creatinine, mg/dL 204.62
[2020-07-26 10:51] LABS: Uric Acid, mg/dL 59.9 mg/dL
[2020-07-26 15:48] LABS: Creatinine, 24Hr Urine 1.4 G/Day (1.0-2.0); Total Volume 24 Hour Urine 675 mL
[2020-07-26 15:50] LABS: Uric Acid, 24 Hr Urine 404.3 mg/Day (250-750)
[2020-07-26 15:51] LABS: Creatinine, 24Hr Urine 1.4 G/Day (1.0-2.0); Sodium 24 Hr Urine 83.7 mmol/Day (40-220); Total Volume 24 Hour Urine 675 mL
[2020-07-27 18:07] LABS: Calcium, 24 Hr Urine 90 mg/24 h; Calcium/Creatinine Ratio 72 mg/g creat (30-275); Creatinine 24Hr Urine 1.26 g/24 h (0.50-2.15)
[2020-08-01 13:32] LABS: 24hr Urine Total Volume 675 mL; Citric Acid, 24hr Urine 267 mg/24 h (100-1300); Citric Acid/Creat Ratio 24U 221 mg/g creat (180-1070); Creatinine, 24U 1.26 g/24 h (0.50-2.15); Oxalic Acid 24 Urine 25.7 mg/24 h (3.6-38.0)
== END 2020-07-26 08:04 | disposition home or self-care (01) ==
LOC: HO.LAB 08:03
PROVIDERS: PCP Internal Medicine; Visit Provider Internal Medicine Nephrology
DX: N20.0 Calculus of kidney (principal)
CPT/HCPCS: 36415; 82310; 82340; 82507; 83945; 84300; 84550; 84560

== ENCOUNTER 2020-08-19 09:37 | Outpatient (REF) | payer OTHER, SELFPAY ==
[2020-08-19 15:23] LABS: CT PCR NOT DETECTED (Not Detect.); NG PCR NOT DETECTED (Not Detect.)
== END 2020-08-19 09:38 | disposition home or self-care (01) ==
LOC: HO.LAB 09:37
PROVIDERS: Visit Provider Advanced Practice Midwife
DX: Z01.419 Encounter for gynecological examination (general) (routine) without abnormal findings (principal); Z11.3 Encounter for screening for infections with a predominantly sexual mode of transmission; N92.6 Irregular menstruation, unspecified; R23.2 Flushing; Z20.2 Contact with and (suspected) exposure to infections with a predominantly sexual mode of transmission
CPT/HCPCS: 87491; 87591

== ENCOUNTER 2020-12-11 08:29 | Outpatient (REF) | payer OTHER, SELFPAY ==
--- NOTE | ~2020-12-11 | US_ITS ---
EXAMINATION: US RETROPERITONEAL LIMITED (RENAL ONLY) CLINICAL INFORMATION: Calculus of kidney. COMPARISON: KUB 03/14/2020. Renal ultrasound 01/03/2020 and 10/28/2015. CT abdomen and pelvis 11/21/2019. TECHNIQUE: Real-time imaging of the kidneys. FINDINGS: RIGHT KIDNEY: 11.8 x 4.0 x 4.2 cm (SAG x AP x TRV). The kidney is normal in size, contour, and echogenicity. Renal cortical thickness is normal. There are small echogenic foci in the upper pole that do not demonstrate twinkle artifact or acoustic shadowing. Appearance is questionable for tiny stones versus vascular reflector. No focal parenchymal lesions. No hydronephrosis. LEFT KIDNEY: 11.9 x 4.5 x 4.7 cm (SAG x AP x TRV). The kidney is normal in size, contour, and echogenicity. Renal cortical thickness is normal. No calculi or focal parenchymal lesions. No hydronephrosis. US/US renal BI IMPRESSION: 2 small echogenic foci of the right kidney questionable for tiny stone versus vascular reflectors. Normal left kidney..
== END 2020-12-11 08:30 | disposition home or self-care (01) ==
LOC: HO.US 08:29
PROVIDERS: PCP Internal Medicine; Visit Provider Urology
DX: N20.0 Calculus of kidney (principal)
CPT/HCPCS: 76775

== ENCOUNTER 2021-01-10 08:34 | Outpatient (REF) | payer OTHER, SELFPAY ==
--- NOTE | ~2021-01-10 | MM_ITS ---
EXAMINATION: MM SCREENING DIGITAL BREAST TOMOSYNTHESIS, BILATERAL CLINICAL INFORMATION: Screening. Asymptomatic. The lifetime risk of breast cancer based on the Tyrer-Cuzick Model is 10%. COMPARISON: Mammography: 12/13/2019, 11/11/2018, 11/03/2017 TECHNIQUE: Digital breast tomosynthesis is performed in both the craniocaudal and mediolateral oblique views along with computer-aided detection (CAD). Synthesized 2D images are generated from the tomosynthesis. FINDINGS: There are scattered areas of fibroglandular density (ACR BI-RADS breast composition Category b). There are no significant masses, abnormal calcifications, or other abnormalities. MM/MM tomosynthesis screening BI IMPRESSION: No mammographic evidence of malignancy. ASSESSMENT: BI-RADS 1: Negative RECOMMENDATION: Routine annual mammography screening. This patient's information was entered into a reminder system with a target due date for their next mammogram.
== END 2021-01-10 08:35 | disposition home or self-care (01) ==
LOC: HO.MAMMO 08:34
PROVIDERS: Visit Provider Internal Medicine
DX: Z12.31 Encounter for screening mammogram for malignant neoplasm of breast (principal)
CPT/HCPCS: 77063; 77067

== ENCOUNTER → 2021-01-14 08:32 | Outpatient (BNVA) | payer OTHER, SELFPAY | DX: N20.0 Calculus of kidney (principal); N39.41 Urge incontinence | CPT/HCPCS: 99212 ==

== ENCOUNTER 2021-02-10 08:42 | Outpatient (RCR) | payer OTHER, SELFPAY ==
--- NOTE | 2021-02-10 10:48 | MHC.PT.EP ---
[facility] [place] Office [place] Office [place] Office [address] Shazia Treviño [address] [phone] F: [phone] F: [phone] F: [phone] F: [phone] Physical Therapy Plan of Care Date of Evaluation: Date of Surgery: Diagnosis: Assessment: The patient arrived reporting urge and stress incontinence. She has a complicated history of kidney stones, kidney infections, stent placement and removal in her kidneys, frequent UTI's. She has recently increased water intake due to recommendations from her medical providers. Previously she was self limiting water intake due to fear of incontinence. An internal pelvic assessment showed no cystocele or urethrocele. Her cervix was found 2 knuckles from the introitus of the vagina, which is a stage one uterine prolapse. Her Pelvic floor muscles had 2/5 strength, but exhibited poor muscular endurance. Her contraction faded rather quickly after about 6 seconds despite cues. She had fair coordination, but poor isolation of contraction. Slightly elevated resting tone noted in her pelvic floor muscles most notable in the pubococcygeus and the compressor urethra. She would benefit from diet and lifestyle changes to reduce bladder irritants, behavior training to help with urge incontinence, and relaxation/breathing techniques to help reduce resting tone. She is currently unaware of a self care program to prevent the reoccurrence of symptoms.She is an excellent candidate for skilled PT. Frequency and Duration: The patient will be seen 1x/week x 4 weeks. Short Term Goals: 1. Pt to be able to correctly activate her PFM to allow improved support to bowel and bladder. 2. Pt to be able to demonstrate a pre contraction before a cough Enroute Controller Goals: 2. Pt to reduce # of episodes of CHON during the day by 50% to help improve quality of life and reduce pad usage. 3. Pt to be independent with her final HEP for PFM in order to help maintain gains made in therapy. Treatment Plan: Modalities to reduce pain, spasms and effusion. Manual therapy to restore motion and function. Therapeutic exercise to improve strength and flexibility. Neuromuscular re-education for posture and balance. Therapeutic activities to return to functional activities of daily living. Electronically signed by: Please sign and return to therapist. Thank you for your referral.
== END 2021-02-18 08:00 | disposition home or self-care (01) ==
LOC: HO.PT 08:42
PROVIDERS: PCP Internal Medicine
DX: N39.41 Urge incontinence (principal)
CPT/HCPCS: 97112; 97530

== ENCOUNTER 2021-02-11 09:05 | Outpatient (REF) | payer OTHER, SELFPAY ==
[2021-02-11 09:29] LABS: MANUAL DIFF FLAG NO
[2021-02-11 10:05] LABS: Basophils Absolute Auto 0.1 X10*3/uL (0.0-0.2); Basophils Percent Auto 0.6 % (0-2); Eosinophils Absolute Auto 0.2 X10*3/uL (0.0-0.4); Eosinophils Percent Auto 2.3 % (0-4); Hematocrit 42.1 % (37.0-47.0); Hemoglobin 14.1 g/dl (12.0-16.0); Imm Gran Abs Auto 0.02 X10*3/uL (0.00-0.03); Imm Gran Pct Auto 0.2 % (0.0-0.4); Lymphocytes Absolute Auto 3.3 X10*3/uL (1.2-4.9); Lymphocytes Percent Auto 36.8 % (20-40); Mean Corpuscular HGB Conc 33.5 g/dl (31.0-35.0); Mean Corpuscular Hemoglobin 29.8 pg (27.0-33.0); Mean Platelet Volume 9.6 fL (9.4-12.3); Monocytes Absolute Auto 0.6 X10*3/uL (0.1-1.2); Monocytes Percent Auto 6.3 % (2-11); Neutrophils Absolute Auto 4.8 x10*3/uL (2.0-8.3); Neutrophils Percent Auto 53.8 % (45-73); Platelet Count 289 X10*3/uL (160-400); Red Blood Count 4.73 X10*6/uL (4.20-5.50); Red Cell Distribution Width 13.1 % (11.0-16.0); White Blood Count 8.9 X10*3/uL (4.8-10.8)
[2021-02-11 10:33] LABS: Alanine Aminotransferase 27 U/L (0-31); Albumin Level 4.4 g/dL (3.5-5.0); Alkaline Phosphatase 76 U/L (39-117); Anion Gap 11 (12-20); Aspartate Amino Transferase 23 U/L (5-31); Bilirubin Total 0.3 mg/dL (0.0-1.0); Blood Urea Nitrogen 11 mg/dL (9-16); Calcium 9.7 mg/dL (8.4-10.2); Carbon Dioxide 29 mmol/L (22-29); Chloride 106 mmol/L (96-108); Cholesterol 208 mg/dL; Estimated Glomerular Filt Rate > 60; Glucose Fasting 90 mg/dL (60-99); HDL Cholesterol 53 mg/dL; LDL Cholesterol Calculated 128 mg/dl; Potassium 4.3 mmol/L (3.3-5.1); Sodium 142 mmol/L (135-145); Triglycerides 138 mg/dL
[2021-02-11 10:45] LABS: Appearance Urine HAZY; Color Urine YELLOW; Glucose Urine UA NEG (NEG); Leukocyte Esterase Urine NEG (NEG); Nitrite Urine POS (NEG); Specific Gravity - Urine >= 1.030 (1.005-1.025); UACC Culture Trigger YES; Urine Blood NEG (NEG); Urine Ketones NEG (NEG); Urine Protein NEG (NEG-TRACE)
[2021-02-11 10:54] LABS: Bacteria Urine 4+ /LPF; RBC Urine 0-2 /HPF (0); Squamous Epithelial Cell Urine TRACE /LPF
[2021-02-11 10:54] LABS: Thyroid Stimulating Hormone 1.75 uIU/mL (0.32-4.0)
== END 2021-02-11 09:06 | disposition home or self-care (01) ==
LOC: HO.LAB 09:05
PROVIDERS: Absent Provider Internal Medicine; PCP Internal Medicine; Visit Provider Internal Medicine
DX: E66.9 Obesity, unspecified (principal); E78.5 Hyperlipidemia, unspecified; D64.9 Anemia, unspecified
CPT/HCPCS: 36415; 80053; 80061; 81001; 84443; 85025; 87086; 87088; 87186

== ENCOUNTER 2021-04-04 13:37 | Outpatient (REF) | payer OTHER, SELFPAY ==
[2021-04-05 14:46] LABS: H Pylori Breath Test Negative (Negative)
== END 2021-04-04 13:38 | disposition home or self-care (01) ==
LOC: HO.LNP 13:37
PROVIDERS: PCP Internal Medicine; Referring Provider Internal Medicine; Visit Provider Nurse Practitioner Family
DX: K21.9 Gastro-esophageal reflux disease without esophagitis (principal); K59.01 Slow transit constipation
CPT/HCPCS: 83013; 99202

== ENCOUNTER → 2021-04-14 09:29 | Outpatient (BNVA) | payer OTHER, SELFPAY | PROVIDERS: PCP Internal Medicine ==

== ENCOUNTER 2021-06-03 18:40 | Outpatient (REF) | payer OTHER, SELFPAY ==
--- NOTE | ~2021-06-03 | MR_ITS ---
EXAMINATION: MR LUMBAR SPINE WITHOUT CONTRAST CLINICAL INFORMATION: Low back pain, unspecified. COMPARISON: None TECHNIQUE: MRI of the lumbar spine was obtained using routine sequences without contrast. FINDINGS: The lumbar vertebral bodies maintain normal heights. There is mild retrolisthesis of L4 on L5. No bone marrow edema is seen. There is disc desiccation at L4-L5. The distal spinal cord appears normal. The conus medullaris terminates normally at the L1 level. The visualized paraspinal muscles and intra-abdominal and pelvic contents are within normal limits. SPINAL LEVELS: L1-L2: No posterior disc abnormality. No spinal canal or neural foraminal stenosis. L2-L3: No posterior disc abnormality. No spinal canal or neural foraminal stenosis. L3-L4: No posterior disc abnormality. No spinal canal or neural foraminal stenosis. L4-L5: Mild retrolisthesis with disc desiccation and mild disc bulging with small central protrusion. Mild facet arthropathy. No significant narrowing the spinal canal or neural foramina. L5-S1: Hypoplastic disc. No spinal canal or neural foraminal stenosis. MR/MR lumbar spine wo con IMPRESSION: No significant narrowing of the spinal canal. No nerve root compression is seen. Mild retrolisthesis at L4-L5 with disc desiccation but no significant narrowing.
== END 2021-06-03 18:41 | disposition home or self-care (01) ==
LOC: HO.MRI 18:40
PROVIDERS: Visit Provider Internal Medicine
DX: M54.50 Low back pain, unspecified (principal)
CPT/HCPCS: 72148

== ENCOUNTER 2021-06-06 08:16 | Outpatient (REF) | payer OTHER, SELFPAY ==
[2021-06-06 10:04] LABS: Anion Gap 9 (12-20); Blood Urea Nitrogen 10 mg/dL (9-16); Calcium 9.1 mg/dL (8.4-10.2); Carbon Dioxide 27 mmol/L (22-29); Chloride 107 mmol/L (96-108); Estimated Glomerular Filt Rate > 60; Potassium 4.3 mmol/L (3.3-5.1); Sodium 139 mmol/L (135-145)
== END 2021-06-06 08:17 | disposition home or self-care (01) ==
LOC: HO.LAB 08:16
PROVIDERS: PCP Internal Medicine; Visit Provider Internal Medicine Nephrology
DX: N20.0 Calculus of kidney (principal)
CPT/HCPCS: 36415; 80051; 82310; 82565; 84520

== ENCOUNTER → 2021-07-04 11:19 | Outpatient (BNVA) | payer OTHER, SELFPAY | PROVIDERS: PCP Internal Medicine; Referring Provider Internal Medicine; Visit Provider Nurse Practitioner Family | DX: K21.9 Gastro-esophageal reflux disease without esophagitis (principal); Z12.11 Encounter for screening for malignant neoplasm of colon | CPT/HCPCS: 99202; 99212 ==

== ENCOUNTER 2021-07-28 14:00 | Outpatient (RCR) | payer OTHER, SELFPAY ==
--- NOTE | 2021-07-18 13:25 | MHC.PT.EP ---
[facility] [place] Office [place] Office [place] Office [address] Shazia Treviño [address] [phone] F: [phone] F: [phone] F: [phone] F: [phone] Physical Therapy Plan of Care Date of Evaluation: Date of Surgery: N/A Diagnosis: low back pain (RC) Assessment: pt reported a hx of both urinary and fecal incontinence. pt would be a good candidate for and may benefit from a referral to pelvic floor physical therapy to address these additional impairments. pt presents to physical therapy w/ MRI (+) for lumbar retrolisthesis as well as muscle length and strength imbalances fostering suboptimal posture and movement patterns. pt presents to physical therapy with pain, decreased range of motion, decreased strength, impaired functional mobility, impaired postural awareness, and gait deviations. pt is a good candidate for skilled PT due to age, potential remediation of impairments, typical disease/condition progression and prognosis, comorbidities, and motivation. pt would benefit from tailored strengthening and stretching exercise program, functional training, gait training, postural re-training, neuromuscular re-education, modalities as needed for pain, equipment safety demonstration. Frequency and Duration: The patient will be seen 2x/wk for 3 wks Short Term Goals: pt will be I w/ HEP to promote self-management of condition. pt will demo proper sitting posture w/ lumbar roll to promote neutral spine w/ seated ADLs. Library Associate Goals: pt will demo proper standing posture w/ sweeping, mopping, and lifting to promote pain-limited return to juke box servicer. pt will report a statistically significant improvement in self-reported outcome measure, Mahendra, to promote return to PLOF. Treatment Plan: Modalities to reduce pain, spasms and effusion. Manual therapy to restore motion and function. Therapeutic exercise to improve strength and flexibility. Neuromuscular re-education for posture and balance. Therapeutic activities to return to functional activities of daily living. Electronically signed by: Shanna Walters PT, DPT Please sign and return to therapist. Thank you for your referral.
--- NOTE | 2021-08-27 13:32 | MHC.PT.DC ---
[facility] [place] Office [place] Office [place] Office [address] Shazia Treviño [address] [facility] [phone] F: [phone] F: [phone] F: [phone] F: [phone] Physical Therapy Discharge Report Diagnosis: low back pain (RC) Date of Surgery: N/A Date of Evaluation: 07/18/21 Date of Discharge: 08/27/21 Treatments to Date: 4 Cancellations to Date: 2 No Shows to Date: 1 Discharge Status: Visit Non-compliance Discharge Summary: The patient has not been seen in this office in nearly a month. She is discharged from this physical therapy plan of care due to non-compliance. Electronically signed by: Shanna Walters PT, DPT Please sign and return to therapist. Thank you for your referral.
== END 2021-08-27 13:32 | disposition home or self-care (01) ==
LOC: HO.PT 14:00
PROVIDERS: PCP Internal Medicine; Visit Provider Internal Medicine
DX: M54.50 Low back pain, unspecified (principal)
CPT/HCPCS: 97110; 97112; 97162; 97530

== ENCOUNTER 2021-08-21 11:00 | Outpatient (REF) | payer OTHER, SELFPAY ==
[2021-08-25 21:12] LABS: HPV mRNA E6/E7 rflx Not Detected (Not Detected)
== END 2021-08-21 11:01 | disposition home or self-care (01) ==
LOC: HO.LAB 11:00
PROVIDERS: Visit Provider Advanced Practice Midwife
DX: Z01.419 Encounter for gynecological examination (general) (routine) without abnormal findings (principal); Z11.51 Encounter for screening for human papillomavirus (HPV)
CPT/HCPCS: 87624; 88142

== ENCOUNTER 2021-08-27 16:02 | Outpatient (REF) | payer OTHER, SELFPAY ==
--- NOTE | ~2021-08-27 | XR_ITS ---
EXAMINATION: XR SHOULDER, LEFT. XR ELBOW, LEFT. CLINICAL INFORMATION: Left shoulder and elbow pain COMPARISON: Left shoulder 03/08/2017 TECHNIQUE: 3 views of left shoulder. 3 views of the left elbow. FINDINGS: Left shoulder: Normal alignment. No joint space narrowing. No fracture or focal osseous lesion. No change. Left elbow: Normal alignment. No fracture. No joint effusion. Calcific densities overlying the triceps tendon likely representing calcific tendinitis. XR/XR elbow LT min 3V IMPRESSION: Left shoulder: Normal. Left elbow: Triceps calcific tendinitis. No acute osseous abnormality.
--- NOTE | ~2021-08-27 | XR_ITS ---
EXAMINATION: XR SHOULDER, LEFT. XR ELBOW, LEFT. CLINICAL INFORMATION: Left shoulder and elbow pain COMPARISON: Left shoulder 03/08/2017 TECHNIQUE: 3 views of left shoulder. 3 views of the left elbow. FINDINGS: Left shoulder: Normal alignment. No joint space narrowing. No fracture or focal osseous lesion. No change. Left elbow: Normal alignment. No fracture. No joint effusion. Calcific densities overlying the triceps tendon likely representing calcific tendinitis. XR/XR shoulder LT min 2V IMPRESSION: Left shoulder: Normal. Left elbow: Triceps calcific tendinitis. No acute osseous abnormality.
--- NOTE | ~2021-08-27 | US_ITS ---
EXAMINATION: US VENOUS WITH DOPPLER UPPER EXTREMITY, LEFT CLINICAL INFORMATION: Edema COMPARISON: None TECHNIQUE: Ultrasound of the upper extremity is performed using compression sonography and color and pulse Doppler flow with assessment of augmentation of flow. There is also imaging and Doppler assessment of the jugular and subclavian veins. Spectral analysis with color-flow imaging is performed. FINDINGS: Respiratory variation, normal compression, and augmented flow are noted throughout the upper extremity including the axillary, brachial, cubital, and radial and ulnar veins. There is normal flow in the internal jugular and subclavian veins. There is no visible deep or superficial thrombophlebitis. Superficial nonocclusive thrombophlebitis in the left cephalic vein. US/US venous duplex UE LT IMPRESSION: No DVT demonstrated in the left upper extremity. Cephalic vein superficial thrombophlebitis.
== END 2021-08-27 16:03 | disposition home or self-care (01) ==
LOC: HO.HMGCX 16:02
PROVIDERS: PCP Internal Medicine; Visit Provider Physician Assistant
DX: M79.89 Other specified soft tissue disorders (principal); M25.512 Pain in left shoulder; M25.522 Pain in left elbow
CPT/HCPCS: 73030; 73080; 93971

== ENCOUNTER 2021-09-29 10:43 | Outpatient (REF) | payer OTHER, SELFPAY ==
--- NOTE | ~2021-09-29 | US_ITS ---
EXAMINATION: US RETROPERITONEAL LIMITED (RENAL ONLY) CLINICAL INFORMATION: Calculus of kidney. COMPARISON: Ultrasound renal 12/11/2020. Ultrasound renal 01/03/2020. X-ray KUB 03/14/2020. TECHNIQUE: Real-time imaging of the kidneys. FINDINGS: RIGHT KIDNEY: 10.4 x 4.4 x 4.8 cm (SAG x AP x TRV). The kidney is normal in size, contour, and echogenicity. Renal cortical thickness is normal. No calculi or focal parenchymal lesions. No hydronephrosis. LEFT KIDNEY: 10.9 x 5.3 x 4.4 cm (SAG x AP x TRV). The kidney is normal in size, contour, and echogenicity. Renal cortical thickness is normal. No calculi or focal parenchymal lesions. No hydronephrosis. US/US renal BI IMPRESSION: Unremarkable renal ultrasound.
== END 2021-09-29 10:44 | disposition home or self-care (01) ==
LOC: HO.US 10:43
DX: N20.0 Calculus of kidney (principal)
CPT/HCPCS: 76775

== ENCOUNTER 2021-10-17 07:30 | Outpatient (REF) | payer OTHER, SELFPAY ==
--- NOTE | ~2021-10-17 | XR_ITS ---
EXAMINATION: XR ELBOW, LEFT CLINICAL INFORMATION: Pain. COMPARISON: Left elbow radiographs dated 08/27/2021. TECHNIQUE: AP, lateral, and oblique views of the left elbow. FINDINGS: No acute fracture or dislocation. No joint space narrowing or marginal osteophytes. No osseous erosion. No significant joint effusion. Redemonstration of calcification in the region of the distal triceps tendon, decreased in prominence when compared to the prior radiographs. These calcifications now measure approximately 0.4 and 0.5 cm (previously 0.7 and 0.9 cm). XR/XR elbow LT min 3V IMPRESSION: Interval decrease in size of previously seen distal triceps calcific tendinitis.
== END 2021-10-17 07:31 | disposition home or self-care (01) ==
LOC: HO.HOSX 07:30
PROVIDERS: Visit Provider Physician Assistant
DX: M77.8 Other enthesopathies, not elsewhere classified (principal)
CPT/HCPCS: 73080; 99202

== ENCOUNTER 2021-11-13 09:35 | Day surgery (SDC) | payer OTHER, SELFPAY ==
[2021-11-10 10:55] VITALS: BMI 36.6
--- NOTE | 2021-11-12 13:12 | P.CONAN_ITS ---
Documented by User: Lizzy Diego NP 11/12/21 13:13 HPI - Anesthesia Eval Consult details Narrative: 51yo F for Colonoscopy PMFSH Active Problems Active Problems: All Active Problems (Updated 10/17/21 @ 09:32 by Erica Sanchez) Urinary tract infection (Acute) Calculus of kidney (Acute) Hydronephrosis (Acute) Encounter for annual routine gynecological examination (Acute) Right elbow tendonitis (Acute) Essential hypertension (Acute) Lumbar pain (Acute) Mild recurrent major depression (Acute) Obesity (BMI 30-39.9) (Acute) Depression (Acute) Polyarthralgia (Acute) Urge urinary incontinence (Acute) Migraines (Acute) Leukocytosis (Acute) Past Medical History Medical History Depression Essential hypertension History of abnormal cervical Pap smear Leukocytosis Lumbar pain Migraines Mild recurrent major depression Obesity (BMI 30-39.9) Polyarthralgia Renal calculi Urge urinary incontinence Family History Family History Mother Hx of diabetes mellitus Maternal Grandfather Family hx of prostate cancer Paternal Uncle Family hx of prostate cancer History of skin cancer Sister No problems noted. Paternal Uncle Prostate cancer Maternal Aunt Seizure Surgical History Surgical History History of colonoscopy History of surgery Hx of cystoscopy Hx of laparoscopy Hx of lithotripsy Hx of tubal ligation Social History Social History Household Members: Children Housing: House Are you a primary daycare provider to a significant other at home: No Do you presently have visiting nurse or other home services: No Alcohol intake: never Patient Tobacco Use Status: Never used Tobacco Tobacco use type: Cigarette e-Cigarette/Vaping Use: Never Used Second Hand Smoke Exposure: No Have you been hit, kicked, punched, or otherwise hurt by someone within the past year? 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 [employer] Cognitive needs: No Hearing needs: No Vision needs: No Meds Allergies Allergy/AdvReac Type Severity Reaction Status Date / Time Latex, Natural Rubber Allergy Intermediate RASH Verified 10/17/21 08:58 [LATEX, NATURAL RUBBER] Home Medications Medication Instructions Recorded Confirmed Last Taken Type hydrochlorothiazide 12.5 mg tablet 12.5 mg PO DAILY 04/04/21 05/19/21 Unknown History topiramate 50 mg tablet 50 mg PO BEDTIME 10/17/21 Unknown History Exam Exam Date and Time: November 12, 2021 1312 Height,Weight and Vital Signs: Height 5 ft 2 in Weight 90.718 kg Pertinent Lab Results Pertinent Lab Results: Laboratory Tests 02/11/21 06/06/21 09:26 08:37 WBC 8.9 Hgb 14.1 Hct 42.1 Plt Count 289 Sodium 139 Potassium 4.3 Chloride 107 Carbon Dioxide 27 BUN 10 Creatinine 0.84 Assessment and Plan Assessment Anesthesia Assessment: Chart Reviewed Documented by User: Keanu Cooper MD 11/13/21 11:08 [facility] Past Medical History Medical History Depression Essential hypertension History of abnormal cervical Pap smear Leukocytosis Lumbar pain Migraines Mild recurrent major depression Obesity (BMI 30-39.9) Polyarthralgia Renal calculi Urge urinary incontinence Family History Family History Mother Hx of diabetes mellitus Maternal Grandfather Family hx of prostate cancer Paternal Uncle Family hx of prostate cancer History of skin cancer Sister No problems noted. Paternal Uncle Prostate cancer Maternal Aunt Seizure Family history of problems with anesthesia: No Surgical History Surgical History History of colonoscopy History of surgery Hx of cystoscopy Hx of laparoscopy Hx of lithotripsy Hx of tubal ligation History of Problems with Anesthesia: No Social History Social History Household Members: Children Housing: House Are you a primary daycare provider to a significant other at home: No Do you presently have visiting nurse or other home services: No Alcohol intake: never Patient Tobacco Use Status: Never used Tobacco Tobacco use type: Cigarette e-Cigarette/Vaping Use: Never Used Second Hand Smoke Exposure: No Have you been hit, kicked, punched, or otherwise hurt by someone within the past year? 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 [employer] Cognitive needs: No Hearing needs: No Vision needs: No Meds Allergies Allergy/AdvReac Type Severity Reaction Status Date / Time Latex, Natural Rubber Allergy Intermediate RASH Verified 10/17/21 08:58 [LATEX, NATURAL RUBBER] Home Medications Medication Instructions Recorded Confirmed Last Taken Type hydrochlorothiazide 12.5 mg tablet 12.5 mg PO DAILY 04/04/21 05/19/21 Unknown History topiramate 50 mg tablet 50 mg PO BEDTIME 10/17/21 Unknown History Exam Airway Mallampati Class: II TM Dist: >3cm Neck ROM: Full Loose/Missing/Broken Teeth: Yes (multiple upper chipped teeth front and sides) Heart: rrr+[id number] Lungs: cta b/l Assessment and Plan Assessment Anesthesia Assessment: Anesthesia Plan Discussed Final Anesthetic Review Family History of Problems with Anesthesia: No History of Problems with Anesthesia: No NPO: Yes ASA Class: II Final Preanesthetic Review: No Changes in Pt Med Stat, Meds/Allgs Chart Reviewed, Consent Obtained/Reviewed and Anes Risks/Benef Reviewed Patient Risk: Intermediate Procedure Risk: Intermediate Assessment/Block/Sedation in SS: Assess/Block/Sedation-SS Anesthetic Plan Anesthetic Plan: MAC: and Agree w/ Assess. and Plan Disposition: Standard PACU
--- NOTE | 2021-11-13 10:39 | P.HPSUR_ITS ---
Pre-Procedural Eval Section A Date of Service: 11/13/21 Section B Chief Complaint: screening Details of Present Illness: hx of urine and fecal incontinence Relevant Family History (Specify if Yes): No Relevant Social History: None Present Medications: see Short Stay Collaborative assessment Medical History: Significant History (Depression Essential hypertension Leukocytosis Lumbar pain Migraines Mild recurrent major depression Obesity (BMI 30-39.9) Polyarthralgia Renal calculi Urge urinary incontinence) History of Previous Operations: Relevant previous surgery/procedure and date(s) (History of colonoscopy History of surgery Hx of laparoscopy Hx of lithotripsy Hx of tubal ligation) Allergies: Allergies Allergy/AdvReac Type Severity Reaction Status Date / Time Latex, Natural Rubber Allergy Intermediate RASH Verified 10/17/21 08:58 [LATEX, NATURAL RUBBER] Review of Systems Sugical H&P ROS: Negative: Constitution, Cardiovascular, Respiratory, Neurological, Psychiatric, Hem-Onc, Allergic/Immunologic, Gastrointestinal, Ge nitourinary, Musculoskeletal, Integumentary, Endocrine and Eyes/Ears/Nose/Throat Exam Surgical H&P Exam: Normal: HEENT, Normal: Heart, Normal: Lungs, Normal: Extremities, Normal: Abdomen, Normal: Skin and Normal: Neurological Plan Diagnosis/Plan: Unchanged I have reviewed the history and physical and performed a pertinent physical examination on my patient. No changes have occurred unless specified.
[2021-11-13 11:02] VITALS: BP 135/82; PULSE 87; RESP 18; TEMP 36.3; O2SAT 98
--- NOTE | 2021-11-13 11:15 | W.PM.OPN ---
Operative Note Operative Note Date of Service: 11/13/21 Narrative: Operative Information Procedure Description: Colonoscopy Indication: screening Anesthesia: MAC COLONOSCOPY Instrument: Olympus variable stiffness pediatric scope 190L Colonoscopy Monitoring: Vital signs and clinical assessment, continuous EKG monitoring, Pulse oximetry, Carbon Dioxide monitoring and blood pressure monitoring were done throughout the procedure. Colon withdrawal time was [] minutes. Procedure: The patient was placed in the left lateral decubitis position and pre-procedure medications were administered. After a digital rectal examination of the ano-rectum, the video colonoscope was inserted into the rectum and advanced through the colon to the cecum/TI. The colonoscope was slowly withdrawn in a retrograde panoramic fashion and the colon mucosa was carefully examined including a retroflexed view of the rectum. Findings and interventions are described below. Procedure Difficulty: easy Findings: Terminal Ileum-normal Cecum: 6-7 mm sessile polyp removed with cold forceps Ascending Colon: normal Transverse Colon -normal Descending Colon:normal Sigmoid Colon: normal Rectum: Retroflexion with small internal hemorrhoids, grade I, 10 mm sessile polyp removed with cold snare Anorectum - normal Colon preparation: [place] Bowel Preparation Scale Right colon; 3 Transverse colon: 3 Left colon; 3 (0 = Unprepared colon segment with mucosa not seen due to solid stool that cannot be cleared. 1 = Portion of mucosa of the colon segment seen, but other areas of the colon segment not well seen due to staining, residual stool and/or opaque liquid. 2 = Minor amount of residual staining, small fragments of stool and/or opaque liquid, but mucosa of colon segment seen well. 3 = Entire mucosa of colon segment seen well with no residual staining, small fragments of stool or opaque liquid) Impression and Post Procedure Diagnosis: polyps internal hemorrhoids Plan: High fiber diet leaflet Avoid straining at stool, epsom salts and sitz bath, anusol supps or cream Repeat Colonoscopy in 5 years if adenomatous polyps, 10 yrs if hyperplastic or earlier if clinically indicated if fecal incontinence persists then refer Dr eldridge for eval for stimulator as she also has back pain Above findings were reviewed with the patient and relevant handouts were provided if indicated.
[2021-11-13 11:45] VITALS: BP 96/54; PULSE 90; RESP 16; TEMP 36.6; O2SAT 98
[2021-11-13 12:06] VITALS: BP 112/61; PULSE 71; RESP 17; TEMP 36.7; O2SAT 98
== END 2021-11-13 13:20 | disposition home or self-care (01) ==
PROVIDERS: PCP Internal Medicine; Visit Provider Internal Medicine Gastroenterology
PROC: 0DJD8ZZ Inspection of Lower Intestinal Tract, Via Natural or Artificial Opening Endoscopic (ICD-10-PCS; CPT 45378; principal; 2021-11-13 11:20)
DX: Z12.11 Encounter for screening for malignant neoplasm of colon (principal); D12.0 Benign neoplasm of cecum; D12.8 Benign neoplasm of rectum; K64.0 First degree hemorrhoids; K59.00 Constipation, unspecified; K21.9 Gastro-esophageal reflux disease without esophagitis; M54.50 Low back pain, unspecified; I10 Essential (primary) hypertension; D72.829 Elevated white blood cell count, unspecified; F33.0 Major depressive disorder, recurrent, mild; N39.41 Urge incontinence; Z87.442 Personal history of urinary calculi; E66.9 Obesity, unspecified; Z68.36 Body mass index [BMI] 36.0-36.9, adult; Z91.040 Latex allergy status
CPT/HCPCS: 45385; 45380; 88305

== ENCOUNTER → 2021-11-28 11:06 | Outpatient (BNVA) | payer OTHER, SELFPAY | PROVIDERS: PCP Internal Medicine; Visit Provider Nurse Practitioner Family | DX: D12.0 Benign neoplasm of cecum (principal); D12.7 Benign neoplasm of rectosigmoid junction; Z98.890 Other specified postprocedural states | CPT/HCPCS: 99212 ==

== ENCOUNTER 2021-12-08 09:32 | Outpatient (REF) | payer OTHER, SELFPAY ==
--- NOTE | ~2021-12-08 | US_ITS ---
EXAMINATION: US RETROPERITONEAL LIMITED (RENAL ONLY) CLINICAL INFORMATION: Calculus of kidney. COMPARISON: Ultrasound retroperitoneal limited (renal only) 09/29/2021 and 12/11/2020. X-ray abdomen KUB 03/14/2020. CT abdomen and pelvis without contrast 11/21/2019. TECHNIQUE: Real-time imaging of the kidneys. FINDINGS: RIGHT KIDNEY: 10.7 x 5.2 x 4.1 cm (SAG x AP x TRV). The kidney is normal in size, contour, and echogenicity. Renal cortical thickness is normal. No calculi or focal parenchymal lesions. No hydronephrosis. LEFT KIDNEY: 10.7 x 4.5 x 4.1 cm (SAG x AP x TRV). The kidney is normal in size, contour, and echogenicity. Renal cortical thickness is normal. No calculi or focal parenchymal lesions. No hydronephrosis. US/US renal BI IMPRESSION: No evidence of nephrolithiasis or hydronephrosis.
== END 2021-12-08 09:33 | disposition home or self-care (01) ==
LOC: HO.HMGCX 09:32
PROVIDERS: PCP Internal Medicine
DX: N20.0 Calculus of kidney (principal)
CPT/HCPCS: 76775

== ENCOUNTER 2022-01-20 08:13 | Outpatient (REF) | payer OTHER, SELFPAY ==
[2022-01-20 09:30] LABS: Anion Gap 12 (12-20); Blood Urea Nitrogen 17 mg/dL (9-16); Calcium 9.6 mg/dL (8.4-10.2); Carbon Dioxide 28 mmol/L (22-29); Chloride 105 mmol/L (96-108); Estimated Glomerular Filt Rate > 60; Potassium 4.5 mmol/L (3.3-5.1); Sodium 140 mmol/L (135-145)
[2022-01-20 09:36] LABS: Alanine Aminotransferase 19 U/L (0-31); Albumin Level 4.5 g/dL (3.5-5.0); Alkaline Phosphatase 76 U/L (39-117); Anion Gap 9 (12-20); Aspartate Amino Transferase 18 U/L (5-31); Bilirubin Total 0.5 mg/dL (0.0-1.0); Blood Urea Nitrogen 17 mg/dL (9-16); Carbon Dioxide 30 mmol/L (22-29); Chloride 106 mmol/L (96-108); Cholesterol 221 mg/dL; Estimated Glomerular Filt Rate > 60; Glucose Fasting 91 mg/dL (60-99); HDL Cholesterol 44 mg/dL; LDL Cholesterol Calculated 149 mg/dl; Potassium 4.4 mmol/L (3.3-5.1); Sodium 141 mmol/L (135-145); Total Protein 7.5 g/dL (6.5-8.0); Triglycerides 141 mg/dL
== END 2022-01-20 08:14 | disposition home or self-care (01) ==
LOC: HO.LAB 08:13
PROVIDERS: Absent Provider Internal Medicine Nephrology; PCP Internal Medicine; Visit Provider Internal Medicine
DX: Z00.00 Encounter for general adult medical examination without abnormal findings (principal); E78.5 Hyperlipidemia, unspecified; N20.0 Calculus of kidney
CPT/HCPCS: 36415; 80051; 80053; 80061; 82310; 82565; 84520; 84550

== ENCOUNTER 2022-02-05 14:14 | Outpatient (REF) | payer OTHER, SELFPAY ==
--- NOTE | ~2022-02-05 | MM_ITS ---
EXAMINATION: MM SCREENING DIGITAL BREAST TOMOSYNTHESIS, BILATERAL CLINICAL INFORMATION: Screening. Asymptomatic. The lifetime risk of breast cancer based on the Tyrer-Cuzick Model is 9.6%. COMPARISON: Mammography: 01/10/2021 and studies dating back to 09/04/2015. TECHNIQUE: Digital breast tomosynthesis is performed in both the craniocaudal and mediolateral oblique views along with computer-aided detection (CAD). Synthesized 2D images are generated from the tomosynthesis. FINDINGS: The breasts are heterogeneously dense, which may obscure small masses (ACR BI-RADS breast composition Category c). There are no new significant masses, abnormal calcifications, or other abnormalities. Question asymmetric density about the lateral aspect of the left breast is seen to be stable and represent fibroglandular tissue on tomosynthesis. There is a stable density about the upper outer aspect of the right breast with appearance of either hamartoma or lipoma. MM/MM tomosynthesis screening BI IMPRESSION: No significant changes from prior exam. ASSESSMENT: BI-RADS 2: Benign RECOMMENDATION: Routine annual mammography screening. This patient's information was entered into a reminder system with a target due date for their next mammogram.
== END 2022-02-05 14:15 | disposition home or self-care (01) ==
LOC: HO.MAMMO 14:14
PROVIDERS: PCP Internal Medicine; Visit Provider Internal Medicine
DX: Z12.31 Encounter for screening mammogram for malignant neoplasm of breast (principal)
CPT/HCPCS: 77063; 77067

== ENCOUNTER 2022-04-08 08:23 | Outpatient (REF) | payer OTHER, SELFPAY ==
[2022-04-09 12:39] LABS: Mumps Virus IgG Antibody >300.00 AU/mL; Rubeola IgG (Measles) >300.00 AU/mL
== END 2022-04-08 08:24 | disposition home or self-care (01) ==
LOC: HO.LAB 08:23
PROVIDERS: PCP Internal Medicine; Visit Provider Internal Medicine
DX: Z01.84 Encounter for antibody response examination (principal)
CPT/HCPCS: 36415; 86735; 86762; 86765

== ENCOUNTER → 2022-05-26 09:22 | Outpatient (BNVA) | payer OTHER, SELFPAY | PROVIDERS: PCP Internal Medicine; Visit Provider Student in an Organized Health Care Education/Training Program | DX: M65.321 Trigger finger, right index finger (principal) | CPT/HCPCS: 99202 ==

== ENCOUNTER 2022-05-27 09:04 | Outpatient (REF) | payer OTHER, SELFPAY ==
--- NOTE | ~2022-05-27 | XR_ITS ---
EXAMINATION: XR hand LT min 3V, XR hand RT min 3V CLINICAL INFORMATION: Reason for Exam M79.641 - Pain in right hand COMPARISON: None. TECHNIQUE: Three views of the bilateral hands XR/XR hand LT min 3V FINDINGS/IMPRESSION: * No acute fracture or dislocation. * Joint spaces are maintained without significant degenerative change. * No soft tissue abnormality.
--- NOTE | ~2022-05-27 | XR_ITS ---
EXAMINATION: XR hand LT min 3V, XR hand RT min 3V CLINICAL INFORMATION: Reason for Exam M79.641 - Pain in right hand COMPARISON: None. TECHNIQUE: Three views of the bilateral hands XR/XR hand RT min 3V FINDINGS/IMPRESSION: * No acute fracture or dislocation. * Joint spaces are maintained without significant degenerative change. * No soft tissue abnormality.
== END 2022-05-27 09:05 | disposition home or self-care (01) ==
LOC: HO.XRAY 09:04
PROVIDERS: PCP Internal Medicine; Visit Provider Student in an Organized Health Care Education/Training Program
DX: M79.642 Pain in left hand (principal); M79.641 Pain in right hand
CPT/HCPCS: 73130

== ENCOUNTER 2022-07-16 08:14 | Outpatient (REF) | payer OTHER, SELFPAY ==
--- NOTE | 2022-07-16 08:19 | EMG_ITS ---
Right median and ulnar motor and sensory studies were performed. Right radial sensory study was performed and paraspinal muscles were tested with a needle. IMPRESSION: 1. Mild right ulnar neuropathy across cubital tunnel. 2. Mild right median neuropathy across carpal tunnel. MD JAGRUTI Ojeda/LUCY / [id number]
== END 2022-07-16 08:15 | disposition home or self-care (01) ==
LOC: HO.NEURO 08:14
PROVIDERS: PCP Internal Medicine; Visit Provider Student in an Organized Health Care Education/Training Program
DX: G56.01 Carpal tunnel syndrome, right upper limb (principal)
CPT/HCPCS: 95886; 95909

== ENCOUNTER 2022-11-18 09:23 | Outpatient (AMB) | payer OTHER, SELFPAY ==
[2022-11-18 09:32] VITALS: BP 124/76; PULSE 94; TEMP 36.4; O2SAT 98; BMI 35.9
--- NOTE | 2022-11-18 09:32 | MHC.OFFVIS ---
Intake Vital Signs 11/18/22 09:32 Height 5 ft 2 in Weight 196 lb 3.382 oz BMI 35.9 BP 124/76 Blood Pressure Location Rt brachial Position Sitting Pulse 94 Pulse Source Pulse Oximeter Temp 97.5 F Temp Source Skin Pulse Oximetry (%) 98 Intake Visit Reasons: trigger finger Intake Note: Pt presents today for follow up. Reports she is having a lot of anxiety and depression as her brother is going through some stuff. Last seen in May, reports right index finger pain has not resolved. Difficulty with opening bottles. States she feels as if she is losing sensation in her hands. Glass Bead Maker Required: Yes Glass Bead Maker Name: Richie [id number] Accompanied by: Self / Same As Patient Allergies Latex, Natural Rubber [LATEX, NATURAL RUBBER] Allergy (Intermediate, Verified 11/18/22 09:41) RASH Medication List - Last Reconciled 11/18/22 by Jeana Woo MD amitriptyline 25 mg PO BEDTIME 90 days bupropion HCl 150 mg PO QAM 90 days cyclobenzaprine 10 mg PO BEDTIME PRN 90 days hydrochlorothiazide 12.5 mg PO DAILY nabumetone 750 mg PO BID PRN 90 days pantoprazole 40 mg PO DAILY pyridoxine (vitamin B6) 100 mg PO DAILY 90 days sennosides (Natural Senna Laxative) 8.6 mg PO BEDTIME sumatriptan succinate (Imitrex) 100 mg PO DAILY PRN 90 days topiramate 50 mg PO BEDTIME HPI HPI Comments History of Present Illness Details Patient returns for follow-up after completion of her x-rays and EMG. States that she continues to get numbness in her right index finger. States that her right index finger very rarely triggers. Initial history: This is a 52-year-old female who presents for evaluation of joint pain. Pt states that 2001 she had a dexa scan in [place] and they had mentioned to her that there was spots on scans that were concerning but never gave her treatments. Pt states she has pain in right index finger, wrist, both feet states that things fall from her hands and feels a burning sensation.? Mentions that her right index finger gets stuck and is painful to straighten twice a day. 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 She is unaware of any family history of autoimmune rheumatic disease. There is no history of DVT/PE. [facility] Medical History History of abnormal cervical Pap smear Essential hypertension Lumbar pain Mild recurrent major depression Obesity (BMI 30-39.9) Polyarthralgia Urge urinary incontinence Migraines Leukocytosis Depression Renal calculi Surgical History Hx of cystoscopy History of colonoscopy History of surgery Hx of tubal ligation Hx of laparoscopy Hx of lithotripsy Family History Mother Hx of diabetes mellitus Maternal Grandfather Family hx of prostate cancer Paternal Uncle Family hx of prostate cancer History of skin cancer Sister No problems noted. Paternal Uncle Prostate cancer Maternal Aunt Seizure Father No problems noted. Social History Household Members: Children Housing: House Are you a primary healthcare translator to a significant other at home: No Do you presently have visiting nurse or other home services: No Alcohol intake: never Patient Tobacco Use Status: Never used Tobacco e-Cigarette/Vaping Use: Never Used Second Hand Smoke Exposure: No service: No Current occupational status: employed Current occupation: works at [employer] in the [email or web address] Current occupational exposures/hazards: No Cognitive needs: No Hearing needs: No Vision needs: No Female Reproductive History Menstrual Age of Menarche: 14 Review of Systems Musc Reports arthralgias and Reports numbness Neuro Reports numbness Physical Exam Vital Signs: Last Vital Signs Temp 97.5 F 11/18/22 09:32 Pulse 94 11/18/22 09:32 BP 124/76 11/18/22 09:32 Pulse Ox 98 11/18/22 09:32 BMI result Body Mass Index 35.9 Const General: cooperative, healthy appearing and comfortable Nutritional Appearance: obese morbidly obese Orientation/consciousness: patient oriented x3 Limitations: no limitations HEENT Head: Yes normocephalic and Yes atraumatic Resp Effort & Inspection: normal respiratory effort and able to speak in complete sentences Neuro Other: Negative Tinel sign bilateral General: patient oriented x3 Extrem Other: Osteoarthritic changes of both hands with Melany's and [place]'s nodes, no triggering of fingers today No active synovitis Assessment & Plan Assessment & Plan (1) Trigger finger, right index finger: Code(s): M65.321 - Trigger finger, right index finger Plan: Resolved with Kenalog injection. Can repeat injections as needed (2) Carpal tunnel syndrome of right wrist: Code(s): G56.01 - Carpal tunnel syndrome, right upper limb Plan: Right upper extremity EMG shows mild carpal tunnel syndrome and mild cubital tunnel syndrome. Prescribed a wrist splint. Referred patient to Hand surgery for further evaluation Plan I spent 28 minutes reviewing patient's chart, evaluating patient, placing orders, counseling patient and documenting in the chart Orders: Referrals Hand Surgery Referral G56.01 - Carpal tunnel syndrome, right upper limb Medications: New [wrist splint] wear nightly & as much as possible throughout the day 1 ea 0RF G56.01 - Carpal tunnel syndrome, right upper limb Coding Level of Care Code Est Pt Level 4 (54118) Diagnoses Trigger finger, right index finger M65.321 Carpal tunnel syndrome of right wrist G56.01
== END 2022-11-18 09:59 | disposition home or self-care (01) ==
PROVIDERS: PCP Internal Medicine; Visit Provider Student in an Organized Health Care Education/Training Program
DX: M65.321 Trigger finger, right index finger (principal); G56.01 Carpal tunnel syndrome, right upper limb
CPT/HCPCS: 99214

== ENCOUNTER → 2022-11-18 09:23 | Outpatient (BNVA) | payer OTHER, SELFPAY | PROVIDERS: PCP Internal Medicine; Visit Provider Student in an Organized Health Care Education/Training Program | DX: M65.321 Trigger finger, right index finger (principal); G56.01 Carpal tunnel syndrome, right upper limb | CPT/HCPCS: 99212 ==

== ENCOUNTER 2022-11-19 08:23 | Outpatient (REF) | payer OTHER, SELFPAY ==
[2022-11-21 19:43] LABS: TS Negative Control Passed; TS Panel A 0; TS Panel B 0; TS Positive Control Passed; TSpotTB Negative (Negative)
== END 2022-11-19 08:24 | disposition home or self-care (01) ==
LOC: HO.LAB 08:23
PROVIDERS: PCP Internal Medicine; Visit Provider Internal Medicine
DX: Z11.1 Encounter for screening for respiratory tuberculosis (principal)
CPT/HCPCS: 36415; 86481

== ENCOUNTER 2022-11-30 09:54 | Outpatient (REF) | payer OTHER, SELFPAY ==
--- NOTE | ~2022-11-30 | US_ITS ---
EXAMINATION: US RETROPERITONEAL LIMITED (RENAL ONLY) CLINICAL INFORMATION: Calculus of kidney. COMPARISON: Ultrasound retroperitoneal limited (renal only) 12/08/2021 and 09/29/2021. X-ray abdomen 03/14/2020. CT abdomen and pelvis without contrast 11/21/2019. TECHNIQUE: Real-time imaging of the kidneys. Limited visualization due to bowel gas. FINDINGS: RIGHT KIDNEY: 11.2 x 4.6 x 4.1 cm (SAG x AP x TRV). No hydronephrosis. No renal calculi. Renal cortical thickness is normal. Limited visualization. LEFT KIDNEY: 10.8 x 5.0 x 4.1 cm (SAG x AP x TRV). No hydronephrosis. No renal calculi. Renal cortical thickness is normal. Limited visualization. US/US renal BI IMPRESSION: No hydronephrosis. No renal calculi.
== END 2022-11-30 09:55 | disposition home or self-care (01) ==
LOC: HO.US 09:54
PROVIDERS: PCP Internal Medicine; Visit Provider Urology
DX: N20.0 Calculus of kidney (principal)
CPT/HCPCS: 76775

== ENCOUNTER 2022-12-10 08:15 | Outpatient (REF) | payer OTHER, SELFPAY | END 2022-12-10 08:16 | disposition home or self-care (01) | LOC: HO.LAB 08:15 | PROVIDERS: PCP Internal Medicine; Visit Provider Urology | DX: N39.0 Urinary tract infection, site not specified (principal); N20.0 Calculus of kidney; R39.9 Unspecified symptoms and signs involving the genitourinary system | CPT/HCPCS: 81003; 87086; 87088; 87186; 99212 ==

== ENCOUNTER 2022-12-10 08:15 | Outpatient (AMB) | payer OTHER, SELFPAY ==
--- NOTE | 2022-12-10 08:17 | A.OFFVIS_ITS ---
Intake Intake Visit Reasons: one yr nephrolithiasis follow up with us Intake Note: Patient presents today for a follow-up on US Results: Meds- Vitamin B6 Allergies to Antibiotic- No Known Allergies Blood Thinner- None Heavy Forger Helper Required: Yes Heavy Forger Helper Language: Rw[place]an Information Interpreted: non-clinical & clinical Accompanied by: Self / Same As Patient Allergies Latex, Natural Rubber [LATEX, NATURAL RUBBER] Allergy (Intermediate, Verified 12/10/22 08:18) RASH Medication List - Last Reconciled 12/10/22 by Arslan White MD amitriptyline 25 mg PO BEDTIME 90 days bupropion HCl 150 mg PO QAM 90 days cyclobenzaprine 10 mg PO BEDTIME PRN 90 days hydrochlorothiazide 12.5 mg PO DAILY nabumetone 750 mg PO BID PRN 90 days nitrofurantoin monohyd/m-cryst 100 mg (Macrobid) 100 mg PO Q12H 5 days pantoprazole 40 mg PO DAILY pyridoxine (vitamin B6) 100 mg PO DAILY 90 days sennosides (Natural Senna Laxative) 8.6 mg PO BEDTIME sumatriptan succinate (Imitrex) 100 mg PO DAILY PRN 90 days [wrist splint wear nightly & as much as possible throughout the day] HPI HPI Comments History of Present Illness Details Riana is a 52-year-old female who is here in follow-up due to kidney stones. 12/10/2022? She is followed today for nephrolithiasis. Patient has a past medical history significant for hypertension. The patient is a Rwandan speaking female. Certified operator supply was present during the visit. She has seen MAMTA Rutledge on 04/14/2021 for renal calculi and urinary incontinence. I reviewed the renal US results from 11/30/2022 revealed no hydronephrosis or renal calculi. She reports having a strong urine odour and mentions increased urinary urgency. I reviewed her medications today in the office. She is no longer taking topiramate (this can contribute to the kidney stones). She states that she ran out of Vitamin B6 and HCTZ. I have advised her to call her PCP to have the HCTZ refilled. 12/10/2022: Evaluation today?UA? leukocy carol ann: negative; blood: negative. 12/10/2022: Plan: I will send urine for culture. Will empirically start her on Macrobid 100 mg BID for 5 days. Continue vitamin B6 100 mg daily. Continue to monitor the kidney. Renal US in 1 year. [facility] Medical History History of abnormal cervical Pap smear Essential hypertension Lumbar pain Mild recurrent major depression Obesity (BMI 30-39.9) Polyarthralgia Urge urinary incontinence Migraines Leukocytosis Depression Renal calculi Surgical History Hx of cystoscopy History of colonoscopy History of surgery Hx of tubal ligation Hx of laparoscopy Hx of lithotripsy Family History Mother Hx of diabetes mellitus Maternal Grandfather Family hx of prostate cancer Paternal Uncle Family hx of prostate cancer History of skin cancer Sister No problems noted. Paternal Uncle Prostate cancer Maternal Aunt Seizure Father No problems noted. 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 Current occupational exposures/hazards: No Cognitive needs: No Hearing needs: No Vision needs: No Female Reproductive History Menstrual Age of Menarche: 14 Review of Systems Const All systems reviewed & are unremarkable except as noted in HPI and below Reports no additional complaints Eyes Reports no additional complaints ENT Reports no additional complaints Card Denies dyspnea Resp Denies cough and Denies dyspnea GI Reports no additional complaints Reports no additional complaints Musc Reports no additional complaints Skin/Breast Denies rash and Denies unusual bruising Neuro Reports no additional complaints Psych Reports no additional complaints Endo Reports no additional complaints Germain/Lymph Reports no additional complaints Aller/Immun Reports no additional complaints Results AMB Urinalysis, Automated 2 UA Leukoctes 0 Roxann/uL Last Edit by Leonor Cornell [facility] on 12/10/22 08:35 UA Nitrite Negative Last Edit by Leonor Cornell, [facility] on 12/10/22 08:35 UA Urobilinogen 0.2 mg/dL Last Edit by Leonor Cornell [facility] on 12/10/22 08:3 5 UA Protein 15 mg/dL Last Edit by Leonor Cornell [facility] on 12/10/22 08:35 UA pH 6.0 Last Edit by Leonor Cornell [facility] on 12/10/22 08:35 UA Blood 0 Panchito/uL Last Edit by Leonor Cornell [facility] on 12/10/22 08:35 UA Specific Whitt 1.025 Last Edit by Leonor Cornell [facility] on 12/10/22 08: 35 UA Ketone Negative Last Edit by Leonor Cornell [facility] on 12/10/22 08:35 UA Bilirubin 0 mg/dL Last Edit by Leonor Cornell [facility] on 12/10/22 08:35 UA Glucose 0 mg/dL Last Edit by Leonor Cornell [facility] on 12/10/22 08:35 Results Reviewed Results Reviewed: Laboratory Last Values Urine pH (Auto) 6.0 12/10/22 08:22 Specific Whitt (Auto) 1.025 12/10/22 08:22 Urine Protein (Auto) 15 mg/dL 12/10/22 08:22 Glucose (UA)(Auto) 0 mg/dL 12/10/22 08:22 Urine Ketones (Auto) Negative 12/10/22 08:22 Urine Blood (Auto) 0 Panchito/uL 12/10/22 08:22 Urine Nitrite (Auto) Negative 12/10/22 08:22 Urine Bilirubin (Auto) 0 mg/dL 12/10/22 08:22 Urine Urobilinogen (Auto) 0.2 mg/dL 12/10/22 08:22 Leukocyte Esterase (Auto) 0 Roxann/uL 12/10/22 08:22 Date of Service: 11/30/22 EXAMINATION: US RETROPERITONEAL LIMITED (RENAL ONLY) CLINICAL INFORMATION: Calculus of kidney. COMPARISON: Ultrasound retroperitoneal limited (renal only) 12/08/2021 and 09/29/2021. X-ray abdomen 03/14/2020. CT abdomen and pelvis without contrast 11/21/2019. FINDINGS: RIGHT KIDNEY: 11.2 x 4.6 x 4.1 cm (SAG x AP x TRV). No hydronephrosis. No renal calculi. Renal cortical thickness is normal. Limited visualization. LEFT KIDNEY: 10.8 x 5.0 x 4.1 cm (SAG x AP x TRV). No hydronephrosis. No renal calculi. Renal cortical thickness is normal. Limited visualization. IMPRESSION: No hydronephrosis. No renal calculi. Assessment & Plan Assessment & Plan (1) Calculus of kidney: Code(s): N20.0 - Calculus of kidney (2) UTI symptoms: Code(s): R39.9 - Unspecified symptoms and signs involving the genitourinary system Plan I will send urine for culture. Will empirically start her on Macrobid 100 mg BID for 5 days. Continue vitamin B6 100 mg daily. Continue to monitor the kidney. Renal US in 1 year. Orders: Orders AMB Urinalysis Automated Today Z13.9 - Encounter for screening, unspecified US renal BI 10 Months N20.0 - Calculus of kidney Medications: New nitrofurantoin monohyd/m-cryst 100 mg (Macrobid) must administer with a meal/food 100 mg PO Q12H 5 days 10 caps 0RF Refilled pyridoxine (vitamin B6) 100 mg PO DAILY 90 days 90 tabs 3RF N20.0 - Calculus of kidney Patient Instructions: The patient had an opportunity to ask questions regarding treatment plan. All questions were answered. Imaging, Laboratory studies and physical exam results were discussed and reviewed in detail. No major barriers to understanding were identified. The patient expressed understanding and agreement with the above treatment plan. The patient is aware they should contact our office by phone for worsening of their current condition or the appearance of new symptoms. Compliance is encouraged with any medications and followup testing that is ordered. It is a privilege to be allowed the opportunity to participate in the urologic care of your patient. If you have any questions or concerns regarding treatment for the above conditions please do not hesitate to contact me. The office telephone contact is [phone]. This note is constructed in part using voice recognition software. While every effort has been made to ensure accuracy pork cutlet maker errors may have been included. Yours sincerely, Arslan White MD Coding Level of Care Code Est Pt Level 4 (94908) Diagnoses Calculus of kidney N20.0 UTI symptoms R39.9
== END 2022-12-10 08:49 | disposition home or self-care (01) ==
PROVIDERS: PCP Internal Medicine; Visit Provider Urology
DX: N20.0 Calculus of kidney (principal); R39.9 Unspecified symptoms and signs involving the genitourinary system; Z13.9 Encounter for screening, unspecified
CPT/HCPCS: 99214

== ENCOUNTER 2022-12-23 09:34 | Outpatient (AMB) | payer OTHER, SELFPAY ==
[2022-12-23 10:24] VITALS: BP 134/84; BMI 36.4
--- NOTE | 2022-12-23 10:24 | A.OFFVIS_ITS ---
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 No complaints. Last Pap/HPV was negative in 08/29 Last Mammogram was BI-RADS 2 in 01/29 Last Colonoscopy was in 11/29, the recommendation was to repeat in 5 years [facility] Medical History (Updated 12/23/22 @ 10:41 by Rubens Villasenor MD) History of abnormal cervical Pap smear Essential hypertension Lumbar pain Mild recurrent major depression Obesity (BMI 30-39.9) Polyarthralgia Urge urinary incontinence Migraines Leukocytosis Depression Renal calculi Surgical History Hx of cystoscopy History of colonoscopy History of surgery Hx of tubal ligation Hx of laparoscopy Hx of lithotripsy Family History Mother Hx of diabetes mellitus Maternal Grandfather Family hx of prostate cancer Paternal Uncle Family hx of prostate cancer History of skin cancer Sister No problems noted. Paternal Uncle Prostate cancer Maternal Aunt Seizure Father No problems noted. 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 Current occupational exposures/hazards: No Cognitive needs: No Hearing needs: No Vision needs: No Female Reproductive History Menstrual Age of Menarche: 14 control method: permanent sterilization Total pregnancies: 1 Full term: 1 Number of Living Children: 1 Date of last pap smear: 08/22/21 (negative) Date of Mammogram: 02/05/22 History of abnormal mammogram: Yes (2016 ASCUS, 2014 KORY 1) Review of Systems Const All systems reviewed & are unremarkable except as noted in HPI and below Card Reports as per HPI Resp Reports as per HPI GI Reports as per HPI and Reports no additional complaints Reports as per HPI Physical Exam Vital Signs: Last Vital Signs BP 134/84 12/23/22 10:24 BMI result Body Mass Index 36.4 Const General: cooperative, healthy appearing and comfortable Chest Chest palpation & inspection: normal inspection of the chest and normal palpation of entire chest wall Breast/axilla inspection: normal inspection of the breasts and normal inspection of the axillae Breast/axilla palpation: normal palpation of the breasts, normal palpation of the axillae and no axillary lymphadenopathy Resp Effort & Inspection: normal respiratory effort Auscultation: clear to auscultation bilaterally Percussion: percussion normal Cardio Palpation: normal PMI Rate: regular rate Rhythm: regular rhythm Heart sounds: no murmurs and no rubs Peripheral pulses: Peripheral pulses 2+ throughout GI Inspection: Yes normal to inspection Palpation (GI): Soft to palpation, nontender, no guarding, not rigid and No hepatosplenomegaly present Percussion: Yes normal to percussion Auscultation: normal bowel sounds Rectal Exam - Female: deferred General: Yes bladder normal to palpation External Female Exam: No lesion Speculum Exam - Vagina: normal appearance of the vagina, normal palpation, normal vaginal discharge and not erythematous Speculum Exam - Cervix: normal appearance of the cervix and normal palpation Bimanual exam- vagina & uterus: normal bimanual exam, normal palpation, uterine size normal, bladder normal to palpation, consistency normal and normal palpation Bimanual Exam- Adnexa, other: normal adnexae, no masses and no tenderness Assessment & Plan Assessment & Plan (1) Well woman exam: Code(s): Z01.419 - Encounter for gynecological examination (general) (routine) without abnormal findings Plan: Co testing not indicated this. Counseled the patient about the recommended dietary allowance of 1200 mg of Calcium & 600 IU of vitamin D. Mammogram ordered. The patient was instructed to perform monthly self-breast exams and schedule annual exam in a year. All questions answered and the patient verbalized understanding. Orders: Orders MM screening mammo BI 12/23/22 Z12.31 - Encounter for screening mammogram for malignant neoplasm of breast Coding Level of Care Code Est Pt Prev Care 40-64y(93161) Diagnoses Well woman exam Z01.419
== END 2022-12-23 10:48 | disposition home or self-care (01) ==
PROVIDERS: PCP Internal Medicine; Visit Provider Advanced Practice Midwife
DX: Z01.419 Encounter for gynecological examination (general) (routine) without abnormal findings (principal)
CPT/HCPCS: 99396

== ENCOUNTER → 2022-12-23 09:34 | Outpatient (BNVA) | payer OTHER, SELFPAY | PROVIDERS: PCP Internal Medicine; Visit Provider Advanced Practice Midwife ==

== ENCOUNTER 2023-01-22 15:23 | Observation (INO) | payer OTHER, SELFPAY ==
--- NOTE | ~2023-01-22 | CT_ITS ---
EXAMINATION: CT ANGIOGRAM HEAD CT ANGIOGRAM NECK CLINICAL INFORMATION: Reason for Exam severe headache dizziness, HTN COMPARISON: None. TECHNIQUE: Test bolus sequences followed by intravenous administration 70 mL of Omnipaque 350. Helical imaging was performed in the axial plane from the aortic arch to the skull vertex. Delayed postcontrast imaging of the head was also performed. The data was processed at the ambulatory technologist's workstation for generation of MIP sequences. Angled MIPs and volume rendered reformatted images were also generated at an offline 3D workstation. Stenoses are assessed in accordance with Mitchell et al. Quantification of Carotid Stenosis on CT Angiography. AJR 2006. 27(1):13-19. This CT examination was performed using dose optimization techniques as appropriate, variously including the following: *Automated exposure control *Adjustment of mA and/or kV according to patient size (this includes techniques or standardized protocols for targeted exams where dose is matched to indication/reason for exam; i.e. extremities or head) *Use of iterative reconstruction technique DLP: 1438 mGy-cm FINDINGS: CT HEAD: The ventricles and sulci are normal in size and configuration without significant volume loss or hydrocephalus. 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 There is no abnormal attenuation within the brain parenchyma. No territorial loss of angelo-white differentiation. No pathologic intra-axial enhancement or regional oligemia. No acute intracranial hemorrhage or extra-axial fluid collection. No mass lesion, significant mass effect, or herniation pattern. Symmetric enlargement of several extraocular muscles, most pronounced of the inferior rectus muscles, which may be seen in the setting of thyroid eye disease and can be correlated with thyroid function tests. Trace mucosal disease in the left maxillary sinus and ethmoid air cells. Left mastoid tip effusion. Osseous structures are intact. CTA HEAD: Venous contamination somewhat compromises diagnostic assessment for distal intracranial arterial vasculature. 1 mm infundibular origin of the left posterior communicating artery. No hemodynamically significant stenosis or occlusion in the anterior or posterior circulation. Punctate calcific plaque along the proximal left cavernous ICA. 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 No aneurysms and no high flow vascular malformations. Timing of the contrast bolus allows assessment of the major dural venous sinuses, which all opacify normally CTA NECK: Suboptimal contrast bolus timing. Classic 3 vessel branching pattern of the aortic arch. Origins of the great vessels are widely patent. The common carotid arteries are widely patent. The carotid bifurcations and bilateral internal carotid arteries are normal. The left vertebral artery is dominant. The vertebral artery ostia are widely patent. Both vertebral arteries are widely patent throughout their extracranial cervical course noting limited diagnostic assessment of the right vertebral artery origin and V1 segment due to beam hardening from adjacent venous contrast bolus.. CT NECK: Symmetric prominence of the palatine and lingual tonsils, presumably tonsillar hyperplasia and reactive. 3 mm air-filled internal laryngocele on the left. Reversal of the normal cervical lordosis. Mild C5-C6 discogenic disease with ventral disc osteophyte. CT/CT head for stroke IMPRESSION: 1. No acute intracranial findings. 2. No acute arterial occlusion or hemodynamically significant stenosis within the head or neck. 3. Symmetric enlargement of several extraocular muscles, most pronounced of the inferior rectus muscles, which may be seen in the setting of thyroid eye disease and can be correlated with thyroid function tests. This critical result was discussed with Anny Lyman DO at 4:11 PM on 01/22/2023 and it was ascertained that the content and urgency of the report was understood at the time of direct communication.
--- NOTE | ~2023-01-22 | CT_ITS ---
EXAMINATION: CT ANGIOGRAM HEAD CT ANGIOGRAM NECK CLINICAL INFORMATION: Reason for Exam severe headache dizziness, HTN COMPARISON: None. TECHNIQUE: Test bolus sequences followed by intravenous administration 70 mL of Omnipaque 350. Helical imaging was performed in the axial plane from the aortic arch to the skull vertex. Delayed postcontrast imaging of the head was also performed. The data was processed at the radioisotope technologist's workstation for generation of MIP sequences. Angled MIPs and volume rendered reformatted images were also generated at an offline 3D workstation. Stenoses are assessed in accordance with Mitchell et al. Quantification of Carotid Stenosis on CT Angiography. AJR 2006. 27(1):13-19. This CT examination was performed using dose optimization techniques as appropriate, variously including the following: *Automated exposure control *Adjustment of mA and/or kV according to patient size (this includes techniques or standardized protocols for targeted exams where dose is matched to indication/reason for exam; i.e. extremities or head) *Use of iterative reconstruction technique DLP: 1438 mGy-cm FINDINGS: CT HEAD: The ventricles and sulci are normal in size and configuration without significant volume loss or hydrocephalus. 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 There is no abnormal attenuation within the brain parenchyma. No territorial loss of angelo-white differentiation. No pathologic intra-axial enhancement or regional oligemia. No acute intracranial hemorrhage or extra-axial fluid collection. No mass lesion, significant mass effect, or herniation pattern. Symmetric enlargement of several extraocular muscles, most pronounced of the inferior rectus muscles, which may be seen in the setting of thyroid eye disease and can be correlated with thyroid function tests. Trace mucosal disease in the left maxillary sinus and ethmoid air cells. Left mastoid tip effusion. Osseous structures are intact. CTA HEAD: Venous contamination somewhat compromises diagnostic assessment for distal intracranial arterial vasculature. 1 mm infundibular origin of the left posterior communicating artery. No hemodynamically significant stenosis or occlusion in the anterior or posterior circulation. Punctate calcific plaque along the proximal left cavernous ICA. 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 No aneurysms and no high flow vascular malformations. Timing of the contrast bolus allows assessment of the major dural venous sinuses, which all opacify normally CTA NECK: Suboptimal contrast bolus timing. Classic 3 vessel branching pattern of the aortic arch. Origins of the great vessels are widely patent. The common carotid arteries are widely patent. The carotid bifurcations and bilateral internal carotid arteries are normal. The left vertebral artery is dominant. The vertebral artery ostia are widely patent. Both vertebral arteries are widely patent throughout their extracranial cervical course noting limited diagnostic assessment of the right vertebral artery origin and V1 segment due to beam hardening from adjacent venous contrast bolus.. CT NECK: Symmetric prominence of the palatine and lingual tonsils, presumably tonsillar hyperplasia and reactive. 3 mm air-filled internal laryngocele on the left. Reversal of the normal cervical lordosis. Mild C5-C6 discogenic disease with ventral disc osteophyte. CT/CT angio head neck stroke IMPRESSION: 1. No acute intracranial findings. 2. No acute arterial occlusion or hemodynamically significant stenosis within the head or neck. 3. Symmetric enlargement of several extraocular muscles, most pronounced of the inferior rectus muscles, which may be seen in the setting of thyroid eye disease and can be correlated with thyroid function tests. This critical result was discussed with Anny Lyman DO at 4:11 PM on 01/22/2023 and it was ascertained that the content and urgency of the report was understood at the time of direct communication.
--- NOTE | 2023-01-22 15:27 | ECG_ITS ---
Test Reason : STROKE Blood Pressure : / mmHG Vent. Rate : 081 BPM Atrial Rate : 081 BPM P-R Int : 166 ms QRS Dur : 088 ms QT Int : 360 ms P-R-T Axes : 050 031 026 degrees QTc Int : 418 ms Normal sinus rhythm Possible Left atrial enlargement Borderline ECG No previous ECGs available Referred By: Anny Lyman Electronically Signed By:Javier Guaman
--- NOTE | 2023-01-22 15:31 | ED_ITS ---
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 Her BP was high. EMS found the patient to have mild R lower facial droop and mild R hand weakness. Stroke alert was called. Her symptoms started at 2pm. She notes the only thing different from her typical migraine is dizziness. She denie hx of HTN. She has not had a stroke before. Onset (ago): hour(s) (2pm today) Timing confirmed by: other (self) Location: other (dizziness, headache, she denies noticing any weakness or facial droop as reported by EMS) History of same: No Severity: moderate Quality: other (diffuse head pain) Relieving factors: none Exacerbating factors: other (bright light, noise) Context: sudden onset On Anticoagulants: No Associated symptoms: headaches Treatments Prior to Arrival: none Related Data Home Medications Medication Instructions Recorded Confirmed hydrochlorothiazide 12.5 mg tablet 12.5 mg PO DAILY 04/04/21 12/10/22 Previous Rx's Medication Instructions Recorded pantoprazole 40 mg tablet,delayed 40 mg PO DAILY #90 tabs 07/04/21 release sennosides 8.6 mg tablet (Natural 8.6 mg PO BEDTIME constipation #30 07/04/21 Senna Laxative) tabs bupropion HCl 150 mg 24 hr tablet, 150 mg PO QAM 90 days #90 tabs 11/13/21 extended release amitriptyline 25 mg tablet 25 mg PO BEDTIME 90 days #90 tabs 03/18/22 nabumetone 750 mg tablet 750 mg PO BID PRN Pain (Scale 03/18/22 Score 4-6) 90 days #180 tabs sumatriptan succinate 100 mg 100 mg PO DAILY PRN Headache 90 03/18/22 tablet (Imitrex) days #27 tabs wrist splint #1 ea 11/18/22 nitrofurantoin 100 mg PO Q12H 5 days #10 caps 12/10/22 monohydrate/macrocrystals 100 mg capsule (Macrobid) pyridoxine (vitamin B6) 100 mg 100 mg PO DAILY 90 days #90 tabs 12/10/22 tablet cyclobenzaprine 10 mg tablet 10 mg PO BEDTIME PRN muscle spasm 12/16/22 90 days #90 tabs Allergies Allergy/AdvReac Type Severity Reaction Status Date / Time Latex, Natural Rubber Allergy Intermediate RASH Verified 12/23/22 10:28 [LATEX, NATURAL RUBBER] Review of Systems 2 Review of Systems: Constitutional : No Fever, No Chills, No Fatigue ENT/Mouth : No sore throat, No Rhinorrhea Eyes: No Eye Pain, No Swelling, No Redness Cardiovascular : No Chest Pain, No SOB, No Dyspnea on Exertion Respiratory : No Cough, No Sputum Gastrointestinal : No Nausea, No Vomiting, No Diarrhea, No abdominal Pain Genitourinary : No Dysuria, No Urinary Frequency, No Hematuria, Musculoskeletal : No joint pain, No Myalgias, No Joint Swelling Skin : No Skin Lesions, No rash Neuro : No Weakness, No Numbness, pos Dizziness, positive Headache Psych : No Anxiety/Panic, No Depression Heme/Lymph: No Bruising, No Bleeding,No Lymphadenopathy Endocrine : No Polyuria, No Polydipsia All other systems reviewed and are negative PMFSH Past Medical History Attestation statement: The following information was validated with the patient. Source: old records reviewed Medical History History of abnormal cervical Pap smear Essential hypertension Lumbar pain Mild recurrent major depression Obesity (BMI 30-39.9) Polyarthralgia Urge urinary incontinence Migraines Leukocytosis Depression Renal calculi Surgical History Hx of cystoscopy History of colonoscopy History of surgery Hx of tubal ligation Hx of laparoscopy Hx of lithotripsy Family History Family History Mother Hx of diabetes mellitus Maternal Grandfather Family hx of prostate cancer Paternal Uncle Family hx of prostate cancer History of skin cancer Sister No problems noted. Paternal Uncle Prostate cancer Maternal Aunt Seizure Father No problems noted. Social History Social History Household Members: Children Housing: House Are you a primary college and career counselor to a significant other at home: No Do you presently have visiting nurse or other home services: No Alcohol intake: never Comment: sleeping Patient Tobacco Use Status: Never used Tobacco e-Cigarette/Vaping Use: Never Used Second Hand Smoke Exposure: No Advance Directives: No Advance Directives Information Provided: No service: No Current occupational status: employed Current occupation: works at [employer] in the [employer] Current occupational exposures/hazards: No Cognitive needs: No Hearing needs: No Vision needs: No Physical Exam 2 Vital Signs: Vital Signs: Last Vital Signs Temp 98.0 F 01/22/23 16:11 Pulse 84 01/22/23 16:11 Resp 16 01/22/23 16:11 BP 145/86 H 01/22/23 16:11 Pulse Ox 99 01/22/23 16:11 O2 Del Method Room Air 01/22/23 16:11 BMI result Body Mass Index 33.7 Appearance: Alert. Oriented X3. No acute distress. Eyes: Pupils equal, round and reactive to light. ENT: Pharynx normal. Neck: Normal inspection. Neck supple. CVS: Normal heart rate and rhythm. Pulses normal. Respiratory: No respiratory distress. Breath sounds normal. Abdomen: Soft and nontender. Skin: Skin warm and dry. Normal skin color. Normal skin turgor. Extremities: No lower extremity edema. No calf ttp Neuro: Oriented X 3. No motor deficit. No sensory deficit. initially mild R hand protocol officer strength 4+/[address] scan when laying down patient appeared to have facial droop but she was leaning head to right side due to pain on exam when sitting upright there is no facial droop, she even looked into her own phone and states her face looks the same, no visual field cuts. Course Course Course Narrative: 337pm NIH 0 symptoms of mild R hand weakness resolved Reevaluation(s) Reevaluation #1: daughter is here discussed results notes mom has no facial droop either Medications Administered Discontinued Medications Generic Name Dose Route Start Last Admin Trade Name Freq PRN Reason Stop Dose Admin Aspirin 325 mg 01/22/23 16:58 01/22/23 17:11 Aspirin 325 Mg Tablet PO 01/22/23 16:59 325 mg ONCE ONE Administration Diphenhydramine HCl 25 mg 01/22/23 16:58 01/22/23 17:11 Diphenhydramine Hcl 50 Mg/Ml Vial IVPUSH 01/22/23 16:59 25 mg ONCE ONE Administration Metoclopramide HCl 5 mg 01/22/23 16:58 01/22/23 17:11 Metoclopramide Hcl 10 Mg/2 Ml Vial IVPUSH 01/22/23 16:59 5 mg ONCE ONE Administration Morphine Sulfate 4 mg 01/22/23 15:44 01/22/23 16:12 Morphine Sulfate 4 Mg/Ml Cartridge IVPUSH 01/22/23 15:45 4 mg ONCE ONE Administration Protocol Ondansetron HCl 4 mg 01/22/23 15:27 01/22/23 16:13 Ondansetron Hcl 4 Mg/2 Ml Vial IVPUSH 01/22/23 15:28 4 mg ONCE ONE Administration Medical Decision Making Medical Decision Making [facility] Narrative: 52 yo female with PMH polyarthralgia, UTI, kidney stones, HTN, depression, migraines onset of dizziness and headache at 2pm EMS noted R facial droop and R hand weakness as well - she had NIH of 1 for possible mild R hand weakness though it resolved rapidly. She has no facial droop I believe it was due to her leaning to right due to headache. I see no droop now and R hand weakness has resolved NIH 0 - not a candidate for TNK due to low score and morbidity for symptoms. Will obtain CT scans and EKG, treat for pain with IV morphine. BP here is normal 140s. Symptoms could have been related to HTN as well given EMS got pressures 180s/100s so this could have been TIA related to HTN Differential Diagnosis Differential Diagnoses: The differential diagnosis associated with the presentation includes migraine, TIA Admission/Observation Consideration of admission/observation: Escalation of care including admission/observation considered given R hand weakness and reported droop with EMS will admit for possible TIA though could be complex migraine Consult Healthcare Provider Management of the patient was discussed with: Hospitalist (will admit) Lab Data [facility] Lab Attestation statement: I reviewed the patient's lab results. 01/22/23 15:51 01/22/23 15:51 Labs: Lab Results 01/22/23 01/22/23 01/22/23 Range/Units 15:31 15:32 15:51 WBC 10.1 (4.8-10.8) X10*3/uL RBC 4.67 (4.20-5.50) X10*6/uL Hgb 13.7 (12.0-16.0) g/dl Hct 40.6 (37.0-47.0) % MCV 86.9 (80.0-98.0) fL MCH 29.3 (27.0-33.0) pg MCHC 33.7 (31.0-35.0) g/dl RDW 13.2 (11.0-16.0) % Plt Count 325 (160-400) X10*3/uL MPV 9.0 L (9.4-12.3) fL Immature Gran % (Auto) 0.2 (0.0-0.4) % Neut % (Auto) 63.2 (45-73) % Lymph % (Auto) 29.0 (20-40) % [place] % (Auto) 5.7 (2-11) % Eos % (Auto) 1.6 (0-4) % Baso % (Auto) 0.3 (0-2) % Lymph # (Auto) 2.9 (1.2-4.9) X10*3/uL [place] # (Auto) 0.6 (0.1-1.2) X10*3/uL Eos # (Auto) 0.2 (0.0-0.4) X10*3/uL Baso # (Auto) 0.0 (0.0-0.2) X10*3/uL Abs Immat Gran (auto) 0.02 (0.00-0.03) X10*3/uL Absolute Neuts (auto) 6.4 (2.0-8.3) x10*3/uL Absolute Nucleated RBC 0.000 (0.0-0.012) X10*3/uL Nucleated RBC % (auto) 0.0 (0.0-0.2) /100WBC PT 12.7 (11.1-13.3) SEC Whole Blood PT 13.3 (11.1-13.5) sec INR 1.0 (0.9-1.1) Whole Blood INR 1.1 (0.9-1.1) APTT 34.6 (26.0-36.4) SEC Sodium 140 (135-145) mmol/L Potassium 4.0 (3.3-5.1) mmol/L Chloride 105 (96-108) mmol/L Carbon Dioxide 27 (22-29) mmol/L Anion Gap 12 (12-20) BUN 14 (9-16) mg/dL Creatinine 0.84 (0.5-1.4) mg/dL Estim Creat Clear Calc 87.6 Estimated GFR > 60 POC Glucose 98 (60-115) mg/dL Random Glucose 105 (60-115) mg/dL Estimat Average Glucose 100 mg/dL Hemoglobin A1c % 5.1 (<6.0) % Calcium 9.6 (8.4-10.2) mg/dL Magnesium 2.2 (1.6-2.6) mg/dL Total Bilirubin 0.3 (0.0-1.0) mg/dL Direct Bilirubin 0.1 (0.0-0.5) mg/dL AST 23 (5-31) U/L ALT 22 (0-31) U/L Alkaline Phosphatase 85 (39-117) U/L Troponin I High Sens < 2.7 (<3.5-17.0) ng/L Total Protein 8.2 H (6.5-8.0) g/dL Albumin 4.5 (3.5-5.0) g/dL Triglycerides 138 (<150) mg/dL Cholesterol 221 H (<200) mg/dL LDL Cholesterol, Calc 144 H (<100) mg/dL HDL Cholesterol 50 (>40) mg/dL COVID-19 (VAN) (Negative) COVID-19 Clin Com 01/22/23 Range/Units 16:06 WBC (4.8-10.8) X10*3/uL RBC (4.20-5.50) X10*6/uL Hgb (12.0-16.0) g/dl Hct (37.0-47.0) % MCV (80.0-98.0) fL MCH (27.0-33.0) pg MCHC (31.0-35.0) g/dl RDW (11.0-16.0) % Plt Count (160-400) X10*3/uL MPV (9.4-12.3) fL Immature Gran % (Auto) (0.0-0.4) % Neut % (Auto) (45-73) % Lymph % (Auto) (20-40) % [place] % (Auto) (2-11) % Eos % (Auto) (0-4) % Baso % (Auto) (0-2) % Lymph # (Auto) (1.2-4.9) X10*3/uL [place] # (Auto) (0.1-1.2) X10*3/uL Eos # (Auto) (0.0-0.4) X10*3/uL Baso # (Auto) (0.0-0.2) X10*3/uL Abs Immat Gran (auto) (0.00-0.03) X10*3/uL Absolute Neuts (auto) (2.0-8.3) x10*3/uL Absolute Nucleated RBC (0.0-0.012) X10*3/uL Nucleated RBC % (auto) (0.0-0.2) /100WBC PT (11.1-13.3) SEC Whole Blood PT (11.1-13.5) sec INR (0.9-1.1) Whole Blood INR (0.9-1.1) APTT (26.0-36.4) SEC Sodium (135-145) mmol/L Potassium (3.3-5.1) mmol/L Chloride (96-108) mmol/L Carbon Dioxide (22-29) mmol/L Anion Gap (12-20) BUN (9-16) mg/dL Creatinine (0.5-1.4) mg/dL Estim Creat Clear Calc Estimated GFR POC Glucose (60-115) mg/dL Random Glucose (60-115) mg/dL Estimat Average Glucose mg/dL Hemoglobin A1c % (<6.0) % Calcium (8.4-10.2) mg/dL Magnesium (1.6-2.6) mg/dL Total Bilirubin (0.0-1.0) mg/dL Direct Bilirubin (0.0-0.5) mg/dL AST (5-31) U/L ALT (0-31) U/L Alkaline Phosphatase (39-117) U/L Troponin I High Sens (<3.5-17.0) ng/L Total Protein (6.5-8.0) g/dL Albumin (3.5-5.0) g/dL Triglycerides (<150) mg/dL Cholesterol (<200) mg/dL LDL Cholesterol, Calc (<100) mg/dL HDL Cholesterol (>40) mg/dL COVID-19 (VAN) Negative (Negative) COVID-19 Clin Com See Note Independent Interpretation I performed an independent interpretation of an: EKG and CT Scan (no LVO no ICH) Radiology Impression Discussion of test interpretation with radiology: I discussed test interpretation with the radiologist and I have reviewed the radiologist's reading. Radiologist Impression: no ICH negative CTA no LVO 411pm Independent Historian Clinical information obtained from an independent historian. History obtained from or confirmed by: EMS and Other (daughter) External Record Review External record reviewed: Office record NIH Stroke Scale Internal: Initial- Upon Arrival Time: 15:30 Level of Consciousness: Alert Level of Consciousness Questions: Answers both questions correctly Level of Consciousness Commands: Performs both tasks correctly Best Gaze: Normal Visual: No visual loss Facial Palsy: Normal Motor Arm (Right): Drift Motor Arm (Left): No drift Motor Leg (Right): No drift Motor Leg (Left): No drift Limb Ataxia: Absent Sensory: Normal Best Language: No aphasia Dysarthia: Normal Extinction and Inattention: No abnormality Score: 1 Critical Care Time Critical Care Time Critical Care Time: Yes Total Critical Care Time: 35 Attestation: stroke alert protocol I attest to this time spent taking care of the patient Discharge Plan Discharge Clinical Impression: Right hand weakness Acute headache Qualifiers: Headache type: unspecified Intractability: not intractable Qualified Code(s): R 51.9 - Headache, unspecified Patient Disposition: Admitted As Inpatient
[2023-01-22 15:40] LABS: Glucose, Whole Blood 98 mg/dL (60-115)
[2023-01-22 15:43] LABS: Prothrombin Time Whole Bld POC 13.3 sec (11.1-13.5); ~PT, ~INR - Anti Coag Clinic 1.1 (0.9-1.1)
[2023-01-22 15:55] LABS: MANUAL DIFF FLAG NO
[2023-01-22 16:01] VITALS: BP 147/83; BP 180/112; PULSE 79; RESP 18; O2SAT 100; BMI 33.7
[2023-01-22 16:02] LABS: Basophils Percent Auto 0.3 % (0-2); Eosinophils Absolute Auto 0.2 X10*3/uL (0.0-0.4); Eosinophils Percent Auto 1.6 % (0-4); Hematocrit 40.6 % (37.0-47.0); Hemoglobin 13.7 g/dl (12.0-16.0); Imm Gran Abs Auto 0.02 X10*3/uL (0.00-0.03); Imm Gran Pct Auto 0.2 % (0.0-0.4); Lymphocytes Absolute Auto 2.9 X10*3/uL (1.2-4.9); Mean Corpuscular HGB Conc 33.7 g/dl (31.0-35.0); Mean Corpuscular Hemoglobin 29.3 pg (27.0-33.0); Mean Corpuscular Volume 86.9 fL (80.0-98.0); Monocytes Absolute Auto 0.6 X10*3/uL (0.1-1.2); Monocytes Percent Auto 5.7 % (2-11); Neutrophils Absolute Auto 6.4 x10*3/uL (2.0-8.3); Neutrophils Percent Auto 63.2 % (45-73); Platelet Count 325 X10*3/uL (160-400); Red Blood Count 4.67 X10*6/uL (4.20-5.50); Red Cell Distribution Width 13.2 % (11.0-16.0); White Blood Count 10.1 X10*3/uL (4.8-10.8)
[2023-01-22 16:03] LABS: Prothrombin Time 12.7 SEC (11.1-13.3)
[2023-01-22 16:06] LABS: Partial Thromboplastin Time 34.6 SEC (26.0-36.4)
[2023-01-22 16:11] VITALS: BP 145/86; PULSE 84; RESP 16; TEMP 36.7; O2SAT 99
[2023-01-22 16:11] LABS: Alanine Aminotransferase 22 U/L (0-31); Albumin Level 4.5 g/dL (3.5-5.0); Alkaline Phosphatase 85 U/L (39-117); Anion Gap 12 (12-20); Aspartate Amino Transferase 23 U/L (5-31); Bilirubin Direct 0.1 mg/dL (0.0-0.5); Bilirubin Total 0.3 mg/dL (0.0-1.0); Blood Urea Nitrogen 14 mg/dL (9-16); Calcium 9.6 mg/dL (8.4-10.2); Carbon Dioxide 27 mmol/L (22-29); Chloride 105 mmol/L (96-108); Cholesterol 221 mg/dL (<200); Creatinine Clr Calc Pharmacy 87.6; Estimated Glomerular Filt Rate > 60; Glucose Random 105 mg/dL (60-115); HDL Cholesterol 50 mg/dL (>40); LDL Cholesterol Calculated 144 mg/dL (<100); Magnesium 2.2 mg/dL (1.6-2.6); Sodium 140 mmol/L (135-145); Total Protein 8.2 g/dL (6.5-8.0); Triglycerides 138 mg/dL (<150)
[2023-01-22] MEDS: Morphine Sulfate 4 MG/ML CARTRIDGE IVPUSH (16:12)
[2023-01-22] MEDS: ondansetron HCL 4 MG/2 ML VIAL IVPUSH (16:13)
[2023-01-22 16:14] LABS: Estimated Average Glucose 100 mg/dL; Hemoglobin A1c % 5.1 % (<6.0)
[2023-01-22 16:20] LABS: Troponin-I High Sensitivity < 2.7 ng/L (<3.5-17.0)
--- NOTE | 2023-01-22 16:32 | PC.NURSE ---
presented to the er with ?stroke like symptoms by EMS. patient's last known well time was approx 1400. states she was having a headache upon EMS arrival ?right sided facial droop and htn. upon arrival bp was obtained (140's/80's) and patient was placed on weighted stretcher for weight, IV established and sent to CT scan. symptoms seem to have resolved at this time, patient has maintained speaking in full clear sentences, able to follow commands and move all extremities at this time. medicated per the MAR for pain and headache.
[2023-01-22 16:50] LABS: COVID-19 Test Negative (Negative); IDNOW Serial# 08D9AD1C
[2023-01-22] MEDS: Metoclopramide HCl 10 MG/2 ML VIAL 5 MG IVPUSH (17:11)
[2023-01-22] MEDS: Aspirin 325 MG TABLET PO (17:11)
[2023-01-22] MEDS: diphenhydrAMINE HCL 50 MG/ML VIAL 25 MG IVPUSH (17:11)
[2023-01-22 17:21] VITALS: BP 147/94; PULSE 66; RESP 14; TEMP 36.7; O2SAT 99
[2023-01-22 17:28] LABS: TSH reflex Free T4 0.86 uIU/mL (0.32-4.0)
--- NOTE | 2023-01-22 17:29 | PC.NURSE ---
Addendum entered by Lindsay Henry 01/22/23 18:47: swallow eval was done prior to medication administration. Original Note: improvement in headache at this time, medicated per the MAR. passed swallow eval, able to tolerate drinking some water. ambulated to the bathroom independently with strong, steady gait.
[2023-01-22 17:35] LABS: Appearance Urine Cloudy; Color Urine Yellow; Glucose Urine UA Negative (Negative); Leukocyte Esterase Urine Negative (Negative); Nitrite Urine Negative (Negative); Specific Gravity - Urine >= 1.030 (1.005-1.025); Urine Blood Negative (Negative); Urine Ketones Negative (Negative); Urine Protein Negative (Neg-Trace)
[2023-01-22 17:38] LABS: Bacteria Urine 1+ (None Seen); Hyaline Casts Urine 0-2 /LPF (0-2); RBC Urine 0-2 /HPF (0-2); Squamous Epithelial Cell Urine 0-2 /HPF (0-2); WBC Urine 0-5 /HPF (0-5)
--- NOTE | 2023-01-22 17:53 | PHA.MEDREC ---
Pharmacy Consult ? Medication Reconciliation Pharmacy has completed the medication reconciliation. Spoke to patient and confirmed medication list.
--- NOTE | 2023-01-22 18:10 | P.HPHOSP_ITS ---
History of Present Illness Date of Service: 01/22/23 Attending physician on admission: Stella Erwin Chief Complaint: n/v , dizziness 52 y/o F with PMH polyarthralgia, UTI, kidney stones, HTN, depression, migraines came c/o headache this today and felt dizzy with photophobia with nausea/vomiting and dizziness she felt her BP was high.as per ED:EMS found the patient to have mild R lower facial droop and mild R hand weakness. Stroke alert was called. Her symptoms started at 2pm. She notes the only thing different from her typical migraine is dizziness. Her symptoms subsequently resolved-with CT head and CTA negative . as per pcp note -07/21/22: seems has hx of htn -she says she he takes hydrochlorothiazide because it was prescribed to has kidney doctor) . Lab imaging , EKG reviewed: CBC BMP seems fine, had elevated cholesterol and LDL. EKG NSR Review of Systems 2 Review of Systems: ABOVE. Yes all other systems are reviewed and are negative [facility] Medical History History of abnormal cervical Pap smear Essential hypertension Lumbar pain Mild recurrent major depression Obesity (BMI 30-39.9) Polyarthralgia Urge urinary incontinence Migraines Leukocytosis Depression Renal calculi Family History Mother Hx of diabetes mellitus Maternal Grandfather Family hx of prostate cancer Paternal Uncle Family hx of prostate cancer History of skin cancer Sister No problems noted. Paternal Uncle Prostate cancer Maternal Aunt Seizure Father No problems noted. Surgical History Hx of cystoscopy History of colonoscopy History of surgery Hx of tubal ligation Hx of laparoscopy Hx of lithotripsy Social History Household Members: Children Housing: House Are you a primary post acute care registered nurse to a significant other at home: No Do you presently have visiting nurse or other home services: No Alcohol intake: never Comment: sleeping Patient Tobacco Use Status: Never used Tobacco e-Cigarette/Vaping Use: Never Used Second Hand Smoke Exposure: No Advance Directives: No Advance Directives Information Provided: No service: No Current occupational status: employed 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 Current occupational exposures/hazards: No Cognitive needs: No Hearing needs: No Vision needs: No Meds Allergies Allergy/AdvReac Type Severity Reaction Status Date / Time Latex, Natural Rubber Allergy Intermediate RASH Verified 12/23/22 10:28 [LATEX, NATURAL RUBBER] Active Medications: Current Medications Acetaminophen/Butalbital/Caffeine (Butalb/Acetamin/Caff 50/325/40 Tablet) 1 tab PO BID PRN PRN Reason: Headache Amitriptyline HCl (Amitriptyline Hcl 25 Mg Tablet) 25 mg PO BEDTIME LINDSEY Cyclobenzaprine HCl (Cyclobenzaprine Hcl 10 Mg Tablet) 10 mg PO BEDTIME PRN PRN Reason: muscle spasm Hydrochlorothiazide (Hydrochlorothiazide 12.5 Mg Tablet) 12.5 mg PO DAILY LINDSEY; Protocol Non-Formulary Medication (Nabumetone) 750 mg PO BID PRN PRN Reason: Pain (Scale Score 4-6) Non-Formulary Medication (Pantoprazole) 40 mg PO DAILY LINDSEY Non-Formulary Medication (Pyridoxine (Vitamin B6)) 100 mg PO DAILY LINDSEY Senna (Sennosides 8.6 Mg Tablet) 8.6 mg PO BEDTIME PRN PRN Reason: constipation Sodium Chloride (0.9 % Sodium Chloride Flush 3 Ml Syringe) 3 ml IVFLUSH QSHIFT LINDSEY Sumatriptan Succinate (Sumatriptan Succinate 100 Mg Tablet) 100 mg PO DAILY PRN PRN Reason: Headache Home Medications Medication Instructions Recorded Confirmed Last Taken Type hydrochlorothiazide 12.5 mg tablet 12.5 mg PO DAILY 04/04/21 01/22/23 01/21/23 History sennosides 8.6 mg tablet (Natural 8.6 mg PO BEDTIME PRN constipation 01/22/23 01/22/23 Unknown History Senna Laxative) Physical Exam 2 Vital Signs and Narrative: Vital Signs: Last Vital Signs Temp 98.0 F 01/22/23 17:21 Pulse 66 01/22/23 17:21 Resp 14 01/22/23 17:21 BP 147/94 H 01/22/23 17:21 Pulse Ox 99 01/22/23 17:21 O2 Del Method Room Air 01/22/23 17:21 BMI result Body Mass Index 33.7 Appearance: Alert.? Oriented X3.? not in distress.? Eyes: Pupils equal, round and reactive to light.? Sclera nonicteric.? ENT: Pharynx normal.? Moist mucous membranes. cvs: rrr, [id number] , no murmur res: clear to auscultation ,no rhonchii or wheezing abd: no rebound or guarding ,nt, bs present. ext pulses present , no cyanosis . neuro: axo3 , nonfocal. Results Labs 01/22/23 15:51 01/22/23 15:51 Labs: Laboratory Results - last 24 hr 01/22/23 01/22/23 01/22/23 15:31 15:32 15:51 MCV 86.9 MCH 29.3 MCHC 33.7 RDW 13.2 Plt Count 325 MPV 9.0 L Immature Gran % (Auto) 0.2 Neut % (Auto) 63.2 Lymph % (Auto) 29.0 [place] % (Auto) 5.7 Eos % (Auto) 1.6 Baso % (Auto) 0.3 Lymph # (Auto) 2.9 [place] # (Auto) 0.6 Eos # (Auto) 0.2 Baso # (Auto) 0.0 Abs Immat Gran (auto) 0.02 Absolute Neuts (auto) 6.4 Absolute Nucleated RBC 0.000 Nucleated RBC % (auto) 0.0 PT 12.7 Whole Blood PT 13.3 INR 1.0 Whole Blood INR 1.1 APTT 34.6 Anion Gap 12 Estim Creat Clear Calc 87.6 Estimated GFR > 60 POC Glucose 98 Random Glucose 105 Estimat Average Glucose 100 Hemoglobin A1c % 5.1 Calcium 9.6 Magnesium 2.2 Total Bilirubin 0.3 Direct Bilirubin 0.1 AST 23 ALT 22 Alkaline Phosphatase 85 Total Protein 8.2 H Albumin 4.5 Triglycerides 138 Cholesterol 221 H LDL Cholesterol, Calc 144 H HDL Cholesterol 50 TSH 0.86 Urine Color Urine Appearance Urine pH Ur Specific [place] Urine Protein Urine Glucose (UA) Urine Ketones Urine Blood Urine Nitrite Ur Leukocyte Esterase Urine RBC Urine WBC Ur Squamous Epith Cells Urine Bacteria Hyaline Casts COVID-19 (VAN) COVID-19 Clin Com 01/22/23 01/22/23 16:06 17:23 MCV MCH MCHC RDW Plt Count MPV Immature Gran % (Auto) Neut % (Auto) Lymph % (Auto) [place] % (Auto) Eos % (Auto) Baso % (Auto) Lymph # (Auto) [place] # (Auto) Eos # (Auto) Baso # (Auto) Abs Immat Gran (auto) Absolute Neuts (auto) Absolute Nucleated RBC Nucleated RBC % (auto) PT Whole Blood PT INR Whole Blood INR APTT Anion Gap Estim Creat Clear Calc Estimated GFR POC Glucose Random Glucose Estimat Average Glucose Hemoglobin A1c % Calcium Magnesium Total Bilirubin Direct Bilirubin AST ALT Alkaline Phosphatase Total Protein Albumin Triglycerides Cholesterol LDL Cholesterol, Calc HDL Cholesterol TSH Urine Color Yellow Urine Appearance Cloudy Urine pH 8.0 Ur Specific [place] >= 1.030 H Urine Protein Negative Urine Glucose (UA) Negative Urine Ketones Negative Urine Blood Negative Urine Nitrite Negative Ur Leukocyte Esterase Negative Urine RBC 0-2 Urine WBC 0-5 Ur Squamous Epith Cells 0-2 Urine Bacteria 1+ Hyaline Casts 0-2 COVID-19 (VAN) Negative COVID-19 Clin Com See Note Imaging Radiologist's Impressions: Impressions Head CT 01/22/23 15:46 IMPRESSION: 1. No acute intracranial findings. 2. No acute arterial occlusion or hemodynamically significant stenosis within the head or neck. 3. Symmetric enlargement of several extraocular muscles, most pronounced of the inferior rectus muscles, which may be seen in the setting of thyroid eye disease and can be correlated with thyroid function tests. This critical result was discussed with Anny Lyman DO at 4:11 PM on 01/22/2023 and it was ascertained that the content and urgency of the report was understood at the time of direct communication. Head/Neck CTA 01/22/23 15:54 IMPRESSION: 1. No acute intracranial findings. 2. No acute arterial occlusion or hemodynamically significant stenosis within the head or neck. 3. Symmetric enlargement of several extraocular muscles, most pronounced of the inferior rectus muscles, which may be seen in the setting of thyroid eye disease and can be correlated with thyroid function tests. This critical result was discussed with Anny Lyman DO at 4:11 PM on 01/22/2023 and it was ascertained that the content and urgency of the report was understood at the time of direct communication. Assessment and Plan (1) Right hand weakness: Status: Acute (2) Acute headache: Qualifiers: Headache type: unspecified Intractability: not intractable Qualified Code(s): R51.9 - Headache, unspecified Status: Acute Plan 52 y/o F with PMH polyarthralgia, UTI, kidney stones, HTN, depression, migraines came c/o headache this today and felt dizzy with photophobia with nausea/vomiting and dizziness she felt her BP was high.as per ED:EMS found the patient to have mild R lower facial droop and mild R hand weakness-symptoms resolved. TIA versus migraine related symptoms CTA and CT head as above. Given aspirin, added statin because of elevated ldl, continue blood pressure control with hydrochlorothiazide, if needed may need to add amlodipine for blood pressure. Continue migraine medications. Neuro check and neurology consult htn:continue blood pressure control with hydrochlorothiazide, if needed may need to add amlodipine for blood pressure. Depression: Continue home medications. DVT: Seems low risk, advised ambulation, mech device. Monitor as observation for new neurological symptoms, monitor for blood pressure control and for expert consultation. Patient's length of stay depends upon these factors and further neuro workup seeif needed. Quality Stroke Does the patient have a stroke diagnosis?: No VTE Prior VTE?: No VTE Risk Level:: Medical - moderate - high VTE Device Contraindication: N/A - Device Ordered VTE Drug Contraindication: N/A - Med Ordered
--- NOTE | 2023-01-22 19:17 | PC.NURSE ---
This RN took over assignment at 1900. Pt medicated per apr. Pts daughter at bedside. Plan of care ongoing.
--- NOTE | 2023-01-22 19:20 | PC.NURSE ---
This RN took over pt assignment @ 1900. Pt ca&ox4, no signs of distress. Pt ambulated to the rest room. Plan of care ongoing.
[2023-01-22 19:45] VITALS: BP 126/70; PULSE 72; RESP 17; TEMP 36.6; O2SAT 97
[2023-01-22] MEDS: Amitriptyline HCl 25 MG TABLET PO (21:23)
[2023-01-22] MEDS: Atorvastatin Calcium 20 MG TABLET PO (21:23)
--- NOTE | 2023-01-22 21:25 | PC.NURSE ---
Pt medicated per apr. Plan of care ongoing.
[2023-01-22 23:25] VITALS: BP 111/58; PULSE 66; RESP 18; TEMP 36.3; O2SAT 98
[2023-01-23 03:18] VITALS: BP 104/59; PULSE 66; RESP 18; TEMP 36.6; O2SAT 98
[2023-01-23] MEDS: Omeprazole 20 MG CAPSULE.DR PO (05:24)
[2023-01-23 07:06] VITALS: BP 89/52; PULSE 73; RESP 18; TEMP 36.6; O2SAT 99
--- NOTE | 2023-01-23 09:41 | PM.NEUROCN ---
History of Present Illness Data of Consult Service Date: 01/23/23 Primary Care Provider: Zari Clemons MD HPI Reason for consult: Migraine 52 years old woman came to hospital with not feeling well and having headache. She was not febrile and did not have any trauma. She had extensive workup done not revealing any obvious abnormality. Now she was feeling better and headache was resolved. She said that she was having headache almost daily. She was given sumatriptan for treatment. Review of Systems Review of Systems: No recent cold or flu-like illness PMFSH Past Medical History Medical History History of abnormal cervical Pap smear Essential hypertension Lumbar pain Mild recurrent major depression Obesity (BMI 30-39.9) Polyarthralgia Urge urinary incontinence Migraines Leukocytosis Depression Renal calculi Family History Family History Mother Hx of diabetes mellitus Maternal Grandfather Family hx of prostate cancer Paternal Uncle Family hx of prostate cancer History of skin cancer Sister No problems noted. Paternal Uncle Prostate cancer Maternal Aunt Seizure Father No problems noted. Surgical History Surgical History Hx of cystoscopy History of colonoscopy History of surgery Hx of tubal ligation Hx of laparoscopy Hx of lithotripsy Social History Social History Household Members: Children Housing: House Are you a primary vocational childcare teacher to a significant other at home: No Do you presently have visiting nurse or other home services: No Alcohol intake: never Comment: sleeping Patient Tobacco Use Status: Never used Tobacco e-Cigarette/Vaping Use: Never Used Second Hand Smoke Exposure: No Advance Directives: No Advance Directives Information Provided: No service: No Current occupational status: employed Current occupation: works at [employer] in the [employer] department Current occupational exposures/hazards: No Cognitive needs: No Hearing needs: No Vision needs: No Meds Allergies Allergy/AdvReac Type Severity Reaction Status Date / Time Latex, Natural Rubber Allergy Intermediate RASH Verified 12/23/22 10:28 [LATEX, NATURAL RUBBER] Active Medications: Current Medications Acetaminophen/Butalbital/Caffeine (Butalb/Acetamin/Caff 50/325/40 Tablet) 1 tab PO BID PRN PRN Reason: Headache Amitriptyline HCl (Amitriptyline Hcl 25 Mg Tablet) 25 mg PO BEDTIME [facility] Last Admin: 01/22/23 21:23 Dose: 25 mg Atorvastatin Calcium (Atorvastatin Calcium 20 Mg Tablet) 20 mg PO BEDTIME [facility] Last Admin: 01/22/23 21:23 Dose: 20 mg Cyclobenzaprine HCl (Cyclobenzaprine Hcl 10 Mg Tablet) 10 mg PO BEDTIME PRN PRN Reason: muscle spasm Hydrochlorothiazide (Hydrochlorothiazide 12.5 Mg Tablet) 12.5 mg PO DAILY [facility]; Protocol Non-Formulary Medication (Nabumetone) 750 mg PO BID PRN PRN Reason: Pain (Scale Score 4-6) Omeprazole (Omeprazole 20 Mg Capsule.Dr) 20 mg PO DAILY@0630 [facility] Last Admin: 01/23/23 05:24 Dose: 20 mg Senna (Sennosides 8.6 Mg Tablet) 8.6 mg PO BEDTIME PRN PRN Reason: constipation Sodium Chloride (0.9 % Sodium Chloride Flush 3 Ml Syringe) 3 ml IVFLUSH QSHIFT [facility] Last Admin: 01/23/23 03:48 Dose: Not Given Sumatriptan Succinate (Sumatriptan Succinate 100 Mg Tablet) 100 mg PO DAILY PRN PRN Reason: Headache Home Medications Medication Instructions Recorded Confirmed Last Taken Type hydrochlorothiazide 12.5 mg tablet 12.5 mg PO DAILY 04/04/21 01/22/23 01/21/23 History sennosides 8.6 mg tablet (Natural 8.6 mg PO BEDTIME PRN constipation 01/22/23 01/22/23 Unknown History Senna Laxative) Physical Exam Vital Signs: Vital Signs: Last Vital Signs Temp 97.8 F 01/23/23 07:06 Pulse 73 01/23/23 07:06 Resp 18 01/23/23 07:06 BP 89/52 L 01/23/23 07:06 Pulse Ox 99 01/23/23 07:06 O2 Del Method Room Air 01/23/23 07:06 BMI result Body Mass Index 33.7 Neuro: Other: She is alert and awake with normal spontaneity of speech fluency comprehension and affect. Face is symmetrical. Visual watson are full. There is no focal weakness. Plantars were flexors. Results Labs 01/22/23 15:51 01/22/23 15:51 Labs: Short CBC 01/22/23 Range/Units 15:51 WBC 10.1 (4.8-10.8) X10*3/uL Hgb 13.7 (12.0-16.0) g/dl Hct 40.6 (37.0-47.0) % Plt Count 325 (160-400) X10*3/uL BMP 01/22/23 15:51 Sodium 140 Potassium 4.0 Chloride 105 Carbon Dioxide 27 BUN 14 Creatinine 0.84 Calcium 9.6 Liver Function 01/22/23 Range/Units 15:51 Total Bilirubin 0.3 (0.0-1.0) mg/dL Direct Bilirubin 0.1 (0.0-0.5) mg/dL AST 23 (5-31) U/L ALT 22 (0-31) U/L Alkaline Phosphatase 85 (39-117) U/L Albumin 4.5 (3.5-5.0) g/dL Urine 01/22/23 Range/Units 17:23 Urine Color Yellow Urine Appearance Cloudy Urine pH 8.0 (5.0-9.0) Ur Specific [place] >= 1.030 H (1.005-1.025) Urine Protein Negative (Neg-Trace) mg/dL Urine Glucose (UA) Negative (Negative) mg/dL Head CT without contrast did not reveal any significant abnormality. CTA of brain and neck did not reveal any stenosis. Assessment and Plan (1) Migraines: Qualifiers: Migraine type: unspecified Status migrainosus presence: without status migrainosus Intractability: not intractable Qualified Code(s): G43.909 - Migraine, unspecified, not intractable, without status migrainosus Status: Acute 52 years old woman with migraine is headaches. This 1 also resulting in dizziness and generalized weakness. There was no sign of infection or any focal lesion. Now she was feeling better. My recommendation is to start her on topiramate 25 mg at night for migraine control. Procedures Date of Service Date of Service: 01/23/23
[2023-01-23] MEDS: hydroCHLOROthiazide 12.5 MG TABLET PO (10:27)
[2023-01-23] MEDS: 0.9 % Sodium Chloride Flush 3 ML SYRINGE IVFLUSH (10:27)
[2023-01-23 11:16] VITALS: BP 116/68; PULSE 74; RESP 18; TEMP 36.7; O2SAT 99
--- NOTE | 2023-01-23 11:59 | PM.DS ---
DS: Providers Provider Date of Service: 01/23/23 Date of admission: 01/22/23 18:03 Date of discharge: 02/23/23 Primary care physician: Zari Clemons MD Consults: 01/22/23 18:06 Consult to Neurology Routine Consulting Provider: [facility] Reason for consultation: tia vs complex migrane Has provider been notified: No DS: Diagnosis Discharge Diagnosis (1) Migraines: Status: Acute DS: Summary Hospital Course Hospital Course: 52 y/o F with PMH polyarthralgia, UTI, kidney stones, HTN, depression, migraines came c/o headache this today and felt dizzy with photophobia with nausea/vomiting and dizziness she felt her BP was high.as per ED:EMS found the patient to have mild R lower facial droop and mild R hand weakness. Stroke alert was called. Her symptoms started at 2pm. She notes the only thing different from her typical migraine is dizziness. Her symptoms subsequently resolved-with CT head and CTA negative . as per pcp note -07/21/22: seems has hx of htn -she says she he takes hydrochlorothiazide because it was prescribed to has kidney doctor) . Lab imaging , EKG reviewed: CBC BMP seems fine, had elevated cholesterol and LDL. EKG NSR. Hospital course: TIA versus migraine related symptoms:CTA and CT head reviewed and seen by neuro: possible migraine is headaches. has resulting in dizziness and generalized weakness. There was no sign of infection or any focal lesion. Now she was feeling better. neuro- recommendation is to start her on topiramate 25 mg at night for migraine control. Discussed with the patient in detail she currently deferred to use Topamax she says that her chief guard recommended to to avoid Topamax due to renal stone history. We will give Fioricet limited supply-patient is to follow-up with PCP and discuss with Nephrology if out patiently can be started on Topamax if not then consider outpatient neurology evaluation. Above management discussed the patient detail and she understand and agreement with above plan, time spent 50 minute. Time Attestation Discharge coordination time: Greater than 30 minutes Quality: Safe Use of Opioids Does Pt have an Active Cancer Diagnosis on the Problem List?: No Quality: Stroke Does the patient have a stroke diagnosis?: No Physical Exam Vital Signs: Vital Signs: Last Vital Signs Temp 98.1 F 01/23/23 11:16 Pulse 74 01/23/23 11:16 Resp 18 01/23/23 11:16 BP 116/68 01/23/23 11:16 Pulse Ox 99 01/23/23 11:16 O2 Del Method Room Air 01/23/23 11:16 BMI result Body Mass Index 33.7 Appearance: Alert.? Oriented X3.? not in distress.? Eyes: Pupils equal, round and reactive to light.? Sclera nonicteric.? ENT: Pharynx normal.? Moist mucous membranes. cvs: rrr, [id number] , no murmur res: clear to auscultation ,no rhonchii or wheezing abd: no rebound or guarding ,nt, bs present. ext pulses present , no cyanosis . neuro: axo3 , nonfocal. DS: Data Data Completed and Pending Completed studies during hospitalization [Text1]: Procedures Dilation of Bilateral Ureters with Intraluminal Device, Via Natural or Artificial Opening Endoscopic (11/21/19) Extirpation of Matter from Left Ureter, Via Natural or Artificial Opening Endoscopic (11/21/19) Extirpation of Matter from Right Ureter, Via Natural or Artificial Opening Endoscopic (11/21/19) Fluoroscopy of Kidneys, Ureters and Bladder (11/21/19) Labs on day of discharge: Laboratory Results - last 24 hr 01/22/23 01/22/23 01/22/23 15:31 15:32 15:51 WBC 10.1 RBC 4.67 Hgb 13.7 Hct 40.6 MCV 86.9 MCH 29.3 MCHC 33.7 RDW 13.2 Plt Count 325 MPV 9.0 L Immature Gran % (Auto) 0.2 Neut % (Auto) 63.2 Lymph % (Auto) 29.0 [place] % (Auto) 5.7 Eos % (Auto) 1.6 Baso % (Auto) 0.3 Lymph # (Auto) 2.9 [place] # (Auto) 0.6 Eos # (Auto) 0.2 Baso # (Auto) 0.0 Abs Immat Gran (auto) 0.02 Absolute Neuts (auto) 6.4 Absolute Nucleated RBC 0.000 Nucleated RBC % (auto) 0.0 PT 12.7 Whole Blood PT 13.3 INR 1.0 Whole Blood INR 1.1 APTT 34.6 Sodium 140 Potassium 4.0 Chloride 105 Carbon Dioxide 27 Anion Gap 12 BUN 14 Creatinine 0.84 Estim Creat Clear Calc 87.6 Estimated GFR > 60 POC Glucose 98 Random Glucose 105 Estimat Average Glucose 100 Hemoglobin A1c % 5.1 Calcium 9.6 Magnesium 2.2 Total Bilirubin 0.3 Direct Bilirubin 0.1 AST 23 ALT 22 Alkaline Phosphatase 85 Troponin I High Sens < 2.7 Total Protein 8.2 H Albumin 4.5 Triglycerides 138 Cholesterol 221 H LDL Cholesterol, Calc 144 H HDL Cholesterol 50 TSH 0.86 Urine Color Urine Appearance Urine pH Ur Specific [place] Urine Protein Urine Glucose (UA) Urine Ketones Urine Blood Urine Nitrite Ur Leukocyte Esterase Urine RBC Urine WBC Ur Squamous Epith Cells Urine Bacteria Hyaline Casts COVID-19 (VAN) COVID-19 Clin Com 01/22/23 01/22/23 16:06 17:23 WBC RBC Hgb Hct MCV MCH MCHC RDW Plt Count MPV Immature Gran % (Auto) Neut % (Auto) Lymph % (Auto) [place] % (Auto) Eos % (Auto) Baso % (Auto) Lymph # (Auto) [place] # (Auto) Eos # (Auto) Baso # (Auto) Abs Immat Gran (auto) Absolute Neuts (auto) Absolute Nucleated RBC Nucleated RBC % (auto) PT Whole Blood PT INR Whole Blood INR APTT Sodium Potassium Chloride Carbon Dioxide Anion Gap BUN Creatinine Estim Creat Clear Calc Estimated GFR POC Glucose Random Glucose Estimat Average Glucose Hemoglobin A1c % Calcium Magnesium Total Bilirubin Direct Bilirubin AST ALT Alkaline Phosphatase Troponin I High Sens Total Protein Albumin Triglycerides Cholesterol LDL Cholesterol, Calc HDL Cholesterol TSH Urine Color Yellow Urine Appearance Cloudy Urine pH 8.0 Ur Specific [place] >= 1.030 H Urine Protein Negative Urine Glucose (UA) Negative Urine Ketones Negative Urine Blood Negative Urine Nitrite Negative Ur Leukocyte Esterase Negative Urine RBC 0-2 Urine WBC 0-5 Ur Squamous Epith Cells 0-2 Urine Bacteria 1+ Hyaline Casts 0-2 COVID-19 (VAN) Negative COVID-19 Clin Com See Note Imaging Chest x-ray: Radiologist's impression: ITS Impressions Head CT 01/22/23 15:46 IMPRESSION: 1. No acute intracranial findings. 2. No acute arterial occlusion or hemodynamically significant stenosis within the head or neck. 3. Symmetric enlargement of several extraocular muscles, most pronounced of the inferior rectus muscles, which may be seen in the setting of thyroid eye disease and can be correlated with thyroid function tests. This critical result was discussed with Anny Lyman DO at 4:11 PM on 01/22/2023 and it was ascertained that the content and urgency of the report was understood at the time of direct communication. Head/Neck CTA 01/22/23 15:54 IMPRESSION: 1. No acute intracranial findings. 2. No acute arterial occlusion or hemodynamically significant stenosis within the head or neck. 3. Symmetric enlargement of several extraocular muscles, most pronounced of the inferior rectus muscles, which may be seen in the setting of thyroid eye disease and can be correlated with thyroid function tests. This critical result was discussed with Anny Lyman DO at 4:11 PM on 01/22/2023 and it was ascertained that the content and urgency of the report was understood at the time of direct communication. Discharge Plan Discharge Anticipated Discharge Date/Time: 01/23/23 11:36 Patient Disposition: Home, Self-Care Discharge Diagnosis: migrane Referrals: Zari Al MD [Primary Care Provider] - 1 Week Discharge Medications: New [id number]-mwxcepshsychy-wfez [Fioricet] 50-300-40 mg capsule 1 cap PO Q8H PRN (Reason: migraine headache) Qty: 10 0RF Continued amitriptyline 25 mg tablet 25 mg PO BEDTIME 90 Days Qty: 90 3RF nabumetone 750 mg tablet 750 mg PO BID PRN (Reason: Pain (Scale Score 4-6)) 90 Days Qty: 180 3RF sumatriptan succinate [Imitrex] 100 mg tablet 100 mg PO DAILY PRN (Reason: Headache) 90 Days Qty: 27 3RF cyclobenzaprine 10 mg tablet 10 mg PO BEDTIME PRN (Reason: muscle spasm) 90 Days Qty: 90 0RF sennosides [Natural Senna Laxative] 8.6 mg tablet 8.6 mg PO BEDTIME PRN (Reason: constipation) hydrochlorothiazide 12.5 mg tablet 12.5 mg PO DAILY pyridoxine (vitamin B6) 100 mg tablet 100 mg PO DAILY 90 Days Qty: 90 3RF pantoprazole 40 mg tablet,delayed release (DR/EC) 40 mg PO DAILY Qty: 90 2RF Rx Instructions: take one tablet half an hour before breakfast (DME) wrist splint See Rx Instructions .Route .MEDSUPPLY Qty: 1 0RF Rx Instructions: wear nightly & as much as possible throughout the day Discharge Orders: Discharge Order (Routine); Ordered 01/23/23 Ordered By: Stella Erwin Diet: Advance to usual diet Activity on Discharge: As tolerated Stand Alone Forms: Patient Portal Discharge page Care Plan Goals: migrane episode -seems resolved,added fioricet. please d/w use of topamax outpatient with pcp and nephro. Health Concerns: as above Plan of Treatment: as above Assessment: as above
--- NOTE | 2023-01-23 14:08 | MHC.CM.PN ---
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 PT REPORTS SHE WOULD LIKE TO COMPLETE A HCP, PT PROVIDED W/EDUCATIONAL HANDOUT IN [place] AND NAMED HER DTR BRENNEN [phone] HER [facility] AND HER SISTER ALLAN [phone] HER ALTERNATE, COPY UPLOADED TO [facility] AND PLACED IN CHART. PCP ON FILE VERIFIED AND COVID VACC X3 PT DISCHARGING TODAY HOME SELF CARE W/B.F. FOR TRANSPORT
== END 2023-01-23 14:30 | disposition home or self-care (01) ==
LOC: HO.ED 17:13 → HO.EDOVER 18:32 → HO.IMC 19:55
PROVIDERS: Admitting Provider Internal Medicine; Emergency Provider Emergency Medicine; PCP Internal Medicine; Visit Provider Internal Medicine
DX: G43.909 Migraine, unspecified, not intractable, without status migrainosus (principal); R42 Dizziness and giddiness; R53.1 Weakness; H53.149 Visual discomfort, unspecified; R11.2 Nausea with vomiting, unspecified; I10 Essential (primary) hypertension; Z11.52 Encounter for screening for COVID-19; Z87.442 Personal history of urinary calculi
CPT/HCPCS: 36415; 70450; 70496; 70498; 80048; 80061; 80076; 81001; 82947; 83036; 83735; 84443; 84484; 85025; 85610; 85730; 87635; 93005; 96374; 96375; 97162; 99222; 99285; J1200; J2270; J2405; J2765

== ENCOUNTER → 2023-01-22 15:27 | Outpatient (BNV) | payer OTHER, SELFPAY | PROVIDERS: Admitting Provider Internal Medicine; Emergency Provider Emergency Medicine; PCP Internal Medicine; Visit Provider Internal Medicine Cardiovascular Disease | DX: I63.9 Cerebral infarction, unspecified (principal) | CPT/HCPCS: 93010 ==

== ENCOUNTER → 2023-01-22 16:31 | Outpatient (BNV) | payer OTHER, SELFPAY | PROVIDERS: Emergency Provider Emergency Medicine; PCP Internal Medicine; Visit Provider Internal Medicine | DX: G43.909 Migraine, unspecified, not intractable, without status migrainosus (principal) | CPT/HCPCS: 99222; 99239 ==

== ENCOUNTER 2023-01-27 08:57 | Outpatient (AMB) | payer OTHER, SELFPAY ==
--- NOTE | 2023-01-27 08:58 | MHC.PC.OV ---
Vital Signs 01/27/23 09:00 Height 5 ft 5 in Weight 195 lb BMI 32.4 BP 122/80 Blood Pressure Location Lt brachial Position Sitting Intake Visit Reasons: Annual Exam Intake Note: Patient here for an annual physical exam Scan Coordinator Required: No Accompanied by: Self / Same As Patient Allergies Latex, Natural Rubber [LATEX, NATURAL RUBBER] Allergy (Intermediate, Verified 01/27/23 09:28) RASH Medication List - Last Reconciled 01/27/23 by Zari Clemons MD amitriptyline 25 mg PO BEDTIME 90 days vcdkjpktcm-bqsrvnadjcxij-zopu 50-300-40 mg (Fioricet) 1 cap PO Q8H PRN cyclobenzaprine 10 mg PO BEDTIME PRN 90 days hydrochlorothiazide 12.5 mg PO DAILY nabumetone 750 mg PO BID PRN 90 days pantoprazole 40 mg PO DAILY pyridoxine (vitamin B6) 100 mg PO DAILY 90 days sennosides (Natural Senna Laxative) 8.6 mg PO BEDTIME PRN sumatriptan succinate (Imitrex) 100 mg PO DAILY PRN 90 days [wrist splint wear nightly & as much as possible throughout the day] Tobacco use date assessed: 07/21/22 Dental Screening Dental Screen Date: 01/27/23 Did you have a dental visit in the last 12 months?: Yes Did you have a dental problem in the last 6 months where you did not have access to dental care?: No Was dental information given to patient?: Patient has dentist HPI HPI Comments History of Present Illness Details This is a 52-year-old female with mild recurrent major depression that comes for her physical exam. Depression stable with medications. Last mammogram was January 2022 and was normal. Last Pap smear was 2021 was normal. Last colonoscopy was 2021 showing tubular adenoma and next colonoscopy should be 5 years after. Denies any chest pain or shortness of breath. Complains of candidal intertrigo with pruritic skin rash under the breast bilateral. [facility] Medical History (Updated 01/27/23 @ 09:48 by Zari Clemons MD) History of abnormal cervical Pap smear Essential hypertension Lumbar pain Mild recurrent major depression Obesity (BMI 30-39.9) Polyarthralgia Urge urinary incontinence Migraines Leukocytosis Depression Renal calculi Surgical History Hx of cystoscopy History of colonoscopy History of surgery Hx of tubal ligation Hx of laparoscopy Hx of lithotripsy Family History (Updated 01/27/23 @ 09:38 by Zari Clemons MD) Mother Hx of diabetes mellitus Maternal Grandfather Family hx of prostate cancer Paternal Uncle Family hx of prostate cancer History of skin cancer Sister No problems noted. Paternal Uncle Prostate cancer Maternal Aunt Seizure Father Oxygen dependent Social History Household Members: Children Housing: House Are you a primary health care marketing manager to a significant other at home: No Do you presently have visiting nurse or other home services: No Alcohol intake: never Comment: sleeping Patient Tobacco Use Status: Never used Tobacco e-Cigarette/Vaping Use: Never Used Second Hand Smoke Exposure: No service: No Current occupational status: employed Current occupation: works at [employer] in the [email or web address] Current occupational exposures/hazards: No Cognitive needs: No Hearing needs: No Vision needs: No Female Reproductive History Menstrual Age of Menarche: 14 Questionnaire Thrive Questionnaire Date Thrive assessed: 01/23/23 EFRA-7 AMB Questionnaire EFRA-7 Date EFRA - 7 assessed: 07/21/22 Source: Developed by Drs. Riaz Cody, Felipa Stroud, Jan Mckeon and colleagues, with an educational bishop from [employer]. Review of Systems Const All systems reviewed & are unremarkable except as noted in HPI and below Eyes Reports no additional complaints, Denies change in vision and Denies other visual disturbances Card Denies chest pain at rest, Denies chest pain with activity, Denies edema, Denies irregular heart rhythm, Denies claudication, Denies dyspnea, Denies dyspnea on exertion, Denies orthopnea, Denies paroxysmal nocturnal dyspnea and Denies slow heart rate Resp Denies cough, Denies dyspnea and Denies dyspnea on exertion GI Denies abdominal pain, Denies change in bowel habits, Denies excessive flatus, Denies nausea and Denies vomiting Denies urinary incontinence, Denies urinary hesitancy and Denies urinary urgency Musc Denies abnormal gait, Denies atrophy, Denies deformity and Denies limited range of motion Skin/Breast Denies bleeding lesions, Denies changing lesions and Denies rash Neuro Denies abnormal gait, Denies behavioral changes, Denies confusion and Denies lack of coordination Psych Denies behavioral changes and Denies confusion Physical exam (Primary Care) Vital Signs: Last Vital Signs BP 122/80 01/27/23 09:00 BMI result Body Mass Index 32.4 Tobacco/Smoking Status: Tobacco use Status Tobacco use date assessed 07/21/22 01/27/23 09:00 Patient Tobacco Use Status Never used Tobacco 01/27/23 09:00 Tobacco use type 01/12/22 10:20 e-Cigarette/Vaping Use Never Used 01/27/23 09:00 Thrive Assessment: Date of Thrive Assessment Date Thrive assessed 01/23/23 01/27/23 09:00 Const General: No confusion Orientation/consciousness: patient oriented x3 and No confusion HENMT Head: Yes normal to inspection, Yes normocephalic and Yes atraumatic Ears: external ears normal Eyes General: appearance normal, both eyes and all related structures Eyelids: Yes eyelids normal Conjunctivae: conjunctivae normal Neck Neck: Yes normal visual inspection and Yes supple Thyroid: diffusely enlarged Resp Effort & Inspection: normal respiratory effort Auscultation: clear to auscultation bilaterally Cardio Jugular venous distension: no JVD Rate: regular rate Rhythm: regular rhythm Heart sounds: S1 normal heart sound present and S2 normal heart sound present GI Inspection: Yes normal to inspection Palpation (GI): Soft to palpation and nontender Auscultation: normal bowel sounds Skin Other: Rash under depressed bilateral Neuro General: patient oriented x3, no focal motor deficits and No confusion Extrem General: Yes full ROM Psych Appearance: grossly normal Office Procedures Flu Questionnaire Does the patient have a severe egg allergy?: No Immunizations flu vacc [id number] 6mos up(PF) 60 mcg(15 mcgx4)/0.5 mL IM syringe Performing Provider: Zari Clemons MD [facility] Documented (not given) by: KELTON Love on 01/27/23 09:09 Reason Not Given: Patient Refused Assessment and Plan Assessment & Plan (1) Physical exam: Code(s): Z00.00 - Encounter for general adult medical examination without abnormal findings Plan: Repeat in a year. (2) Mild recurrent major depression: Code(s): F33.0 - Major depressive disorder, recurrent, mild Plan: Continue amitriptyline. Orders: Orders Influenza [id number] Immunization Today Z23 - Encounter for immunization US thyroid Today E04.9 - Nontoxic goiter, unspecified Medications: New nystatin 1 appl topical BID 15 grams 2RF 2 weeks B37.2 - Candidiasis of skin and nail Coding Level of Care Code Est Pt Prev Care 40-64y(61974) Diagnoses Physical exam Z00.00 Mild recurrent major depression F33.0 Time Spent (min) 33
[2023-01-27 09:00] VITALS: BP 122/80; BMI 32.4
== END 2023-01-27 09:57 | disposition home or self-care (01) ==
PROVIDERS: PCP Internal Medicine; Visit Provider Internal Medicine
DX: Z00.00 Encounter for general adult medical examination without abnormal findings (principal); F33.0 Major depressive disorder, recurrent, mild; Z86.010 Personal history of colon polyps
CPT/HCPCS: 99396

== ENCOUNTER 2023-02-11 09:14 | Outpatient (REF) | payer OTHER, SELFPAY | END 2023-02-11 09:15 | disposition home or self-care (01) | LOC: HO.MAMMO 09:14 | PROVIDERS: Absent Provider Obstetrics & Gynecology; PCP Internal Medicine; Visit Provider Internal Medicine | DX: Z12.31 Encounter for screening mammogram for malignant neoplasm of breast (principal) | CPT/HCPCS: 77063; 77067 ==

== ENCOUNTER → 2023-02-11 10:00 | Outpatient (BNV) | payer OTHER, SELFPAY | PROVIDERS: Absent Provider Obstetrics & Gynecology; PCP Internal Medicine; Visit Provider Radiology Diagnostic Radiology | DX: Z12.31 Encounter for screening mammogram for malignant neoplasm of breast (principal) | CPT/HCPCS: 77063; 77067 ==

== ENCOUNTER 2023-02-15 13:20 | Outpatient (AMB) | payer OTHER, SELFPAY ==
--- NOTE | 2023-02-15 13:28 | MHC.OFFVIS ---
Intake Intake Visit Reasons: New prob-Carpal tunnel syndrome, Rt upper limb Intake Note: Riana is a 52 year old right hand dominant female who presents today for a evaluation of numbness/tingling in her right hand, EMG was done on 07/16/22. Patient reports her numbness is in both hands, how ever the right hand is worse. She states she is wondering about surgery. Her numbness is off and on for a couple months. Hx of injection with no relief. Also, having concerns of her right pointer finger locking. Allergies Latex, Natural Rubber [LATEX, NATURAL RUBBER] Allergy (Intermediate, Verified 02/15/23 13:39) RASH HPI New prob-Carpal tunnel syndrome, Rt upper limb HPI Details 52-year-old female, who is Citizen Of [place] speaking, presents in the office today for a follow up of right upper extremity pain. I last saw the patient in the office on 10/17/2021 when she was treated for right elbow pain status post over working the elbow while exercising in 08/2021. Physical therapy was discussed however due to the decrease in pain at the time it was deferred. Per the Rheumatology note: The patient was later seen by Rheumatology on 05/26/2022 for right index and wrist pain and burning sensation. She stated the right index finger would get ?stuck? twice daily. She received an injection of 20 mg of triamcinolone and 0.3 cc of 1% lidocaine in the right hand. She followed up with Rheumatology on 11/18/2022 reporting the right index finger pain had not resolved. She stated she ?feels as if she is losing sensation in her hands?. She reported continued numbness but states it very rarely triggered. At this time she was prescribed a wrist splint and referred to orthopedics. While in the office today the patient reports continued numbness. 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 [facility] Medical History History of abnormal cervical Pap smear Essential hypertension Lumbar pain Mild recurrent major depression Obesity (BMI 30-39.9) Polyarthralgia Urge urinary incontinence Migraines Leukocytosis Depression Renal calculi Surgical History Hx of cystoscopy History of colonoscopy History of surgery Hx of tubal ligation Hx of laparoscopy Hx of lithotripsy Family History (Updated 01/27/23 @ 09:38 by Zari Clemons MD) Mother Hx of diabetes mellitus Maternal Grandfather Family hx of prostate cancer Paternal Uncle Family hx of prostate cancer History of skin cancer Sister No problems noted. Paternal Uncle Prostate cancer Maternal Aunt Seizure Father Oxygen dependent Social History Household Members: Children Housing: House Are you a primary child care team lead to a significant other at home: No Do you presently have visiting nurse or other home services: No Alcohol intake: never Comment: sleeping Patient Tobacco Use Status: Never used Tobacco e-Cigarette/Vaping Use: Never Used Second Hand Smoke Exposure: No service: No Current occupational status: employed Current occupation: works at [employer] in the [employer] Current occupational exposures/hazards: No Cognitive needs: No Hearing needs: No Vision needs: No Female Reproductive History Menstrual Age of Menarche: 14 Review of Systems Const All systems reviewed & are unremarkable except as noted in HPI and below Physical Exam Const General: cooperative and no acute distress Orientation/consciousness: patient oriented x3 Resp Effort & Inspection: normal respiratory effort and able to speak in complete sentences Cardio Peripheral pulses: Peripheral pulses 2+ throughout Skin General skin exam: no rashes or lesions noted Neuro General: patient oriented x3 Extrem Other: Right upper extremity: Normal to inspection. No ecchymosis, erythema, or edema. Full ROM in all planes. Able to perform full finger flexion, extension, abduction, adduction, finger cross, okay sign, and thumbs up without deficit. Able to make a closed fist. Positive Tinel?s at the cubital and carpal tunnel. Numbness and tingling over the entire volar aspect of the right hand including all digits. Capillary refill is brisk. Radial pulse intact. Assessment & Plan Assessment & Plan (1) Carpal tunnel syndrome of right wrist: Code(s): G56.01 - Carpal tunnel syndrome, right upper limb (2) Cubital tunnel syndrome on right: Code(s): G56.21 - Lesion of ulnar nerve, right upper limb Plan Ms. Angela De Jesus is a 52-year-old female, who is Citizen Of [place] speaking, presents in the office today for a follow up of right upper extremity pain. I last saw the patient in the office on 10/17/2021 when she was treated for right elbow pain status post over working the elbow while exercising in 08/2021. Physical therapy was discussed however due to the decrease in pain at the time it was deferred. Per the Rheumatology note: The patient was later seen by Rheumatology on 05/26/2022 for right index and wrist pain and burning sensation. She stated the right index finger would get ?stuck? twice daily. She received an injection of 20 mg of triamcinolone and 0.3 cc of 1% lidocaine in the right hand. She followed up with Rheumatology on 11/18/2022 reporting the right index finger pain had not resolved. She stated she ?feels as if she is losing sensation in her hands?. She reported continued numbness but states it very rarely triggered. At this time she was prescribed a wrist splint and referred to orthopedics. While in the office today the patient reports continued numbness. 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 We discussed the role of conservative treatments versus surgical intervention. She has tried cortisone injections in the past with no relief. She reports intermittent numbness and tingling, but denies dense numbness. She would like to move forward with surgical intervention, however, she would like to do this in the summer when she has more vacation time available to her. She will call the office when it is closer to the time she would like to move forward with surgical intervention. Follow up will be PRN, or sooner if needed. EMG of the right upper extremity, obtained on 07/16/2022, revealed: 1. Mild right ulnar neuropathy across cubital tunnel. 2. Mild right median neuropathy across carpal tunnel. Patient Instructions: Scribed for Corrine Her PA-C by Erica Sanchez medical affairs specialist, on 02/15/2023 at 1:23 pm, EST. Coding Level of Care Code Est Pt Level 4 (12848) Diagnoses Carpal tunnel syndrome of right wrist G56.01 Cubital tunnel syndrome on right G56.21
== END 2023-02-15 15:16 | disposition home or self-care (01) ==
PROVIDERS: PCP Internal Medicine; Visit Provider Physician Assistant
DX: G56.01 Carpal tunnel syndrome, right upper limb (principal); G56.21 Lesion of ulnar nerve, right upper limb
CPT/HCPCS: 99214

== ENCOUNTER → 2023-02-15 13:20 | Outpatient (BNVA) | payer OTHER, SELFPAY | PROVIDERS: PCP Internal Medicine; Visit Provider Physician Assistant | DX: G56.01 Carpal tunnel syndrome, right upper limb (principal); G56.21 Lesion of ulnar nerve, right upper limb | CPT/HCPCS: 99212 ==

== ENCOUNTER 2023-03-02 10:37 | Outpatient (REF) | payer OTHER, SELFPAY ==
--- NOTE | ~2023-03-02 | US_ITS ---
EXAMINATION: US THYROID CLINICAL INFORMATION: Nontoxic goiter, unspecified. COMPARISON: Thyroid ultrasound 11/14/2018 and 05/08/2016. TECHNIQUE: Linear transducer grayscale and color Doppler examination with attention to the region of the thyroid. FINDINGS: SIZE: Measurements of the thyroid lobes and nodules are given in sagittal, anteroposterior and transverse dimensions respectively. Right Thyroid Lobe: 3.6 x 2.0 x 1.7 cm, volume 6.1 mL. Previously 4.0 x 1.6 x 1.6 cm, volume 5.6 mL. Parenchyma: The gland echotexture is homogeneous. Thyroid vascularity is normal. Left Thyroid Lobe: 3.3 x 1.3 x 1.1 cm, volume 2.5 mL. Previously 3.3 x 1.1 x 1.1 cm, volume 2.2 mL. Parenchyma: The gland echotexture is homogeneous. Thyroid vascularity is normal. Isthmus: 0.2 cm in maximum AP dimension. Previously 0.1 cm. No focal thyroid nodule is seen. NODES: No lymphadenopathy is seen in the tissue surrounding the thyroid gland. ADDITIONAL FINDING: Inferior to the left thyroid lobe, 0.5 x 0.4 x 0.5 cm hyperechoic structure is seen, previously 0.4 x 0.5 x 0.3 cm. Currently no internal flow. US/US thyroid IMPRESSION: Redemonstration 5 mm nodule inferior to left thyroid lobe, question parathyroid adenoma. ACR TI-RADS RECOMMENDATION REFERENCE: Ultrasound-guided fine-needle aspiration, follow up ultrasound, no further followup. * TR1 (0 point) and TR2 (2 points): No FNA or followup * TR3 (3 points): FNA if more than or equal to 2.5 cm in maximum dimension, follow up ultrasound in 1, 3 and 5 years if 1.5 to 2.4 cm in maximum dimension. * TR4 (4-6 points): FNA if more than or equal to 1.5 cm in maximum dimension, follow up ultrasound in 1, 2, 3 and 5 years if 1 to 1.4 cm in maximum dimension. * TR5 (more than or equal to 7 points): FNA if more than or equal to 1 cm in maximum dimension, follow up ultrasound every year for 5 years if 0.5 to 0.9 cm in maximum dimension. * TR3, TR4 or TR5 nodules that are below the size threshold for follow up receive no followup.
== END 2023-03-02 10:38 | disposition home or self-care (01) ==
LOC: HO.US 10:37
PROVIDERS: PCP Internal Medicine; Visit Provider Internal Medicine
DX: E04.9 Nontoxic goiter, unspecified (principal)
CPT/HCPCS: 76536

== ENCOUNTER → 2023-03-09 11:19 | Outpatient (BNVA) | payer OTHER, SELFPAY | PROVIDERS: PCP Internal Medicine; Visit Provider Orthopaedic Surgery ==

== ENCOUNTER 2023-03-11 10:23 | Outpatient (AMB) | payer OTHER, SELFPAY ==
[2023-03-11 10:27] VITALS: BMI 32.4
--- NOTE | 2023-03-11 10:27 | A.OFFVIS_ITS ---
Intake Vital Signs 03/11/23 10:27 Height 5 ft 5 in Weight 195 lb BMI 32.4 Intake Visit Reasons: Newprob- Rt shoulder/ kneck pain Intake Note: Riana 53 yr old female presents today for a new problem visit for her bilateral shoulders and neck pain. States her pain radiates from her shoulder to her neck causing migraines for the last 1.5 yrs ago. Patient reports her pain has worsen and is also having pain when she moves her head side to side.Denies any injury. She is having numbness and tingling in both hands that increases at night time. EMG done. Interactive Multimedia Designer Required: Yes Allergies Latex, Natural Rubber [LATEX, NATURAL RUBBER] Allergy (Intermediate, Verified 03/11/23 10:34) RASH Medication List - Last Reconciled 03/11/23 by Addis Ocasio MD amitriptyline 25 mg PO BEDTIME 90 days cyclobenzaprine 10 mg PO BEDTIME PRN 90 days hydrochlorothiazide 12.5 mg PO DAILY nabumetone 750 mg PO BID PRN 90 days nystatin 1 appl topical BID 2 weeks pantoprazole 40 mg PO DAILY pyridoxine (vitamin B6) 100 mg PO DAILY 90 days sennosides (Natural Senna Laxative) 8.6 mg PO BEDTIME PRN sumatriptan succinate (Imitrex) 100 mg PO DAILY PRN 90 days [wrist splint wear nightly & as much as possible throughout the day] HPI HPI Comments History of Present Illness Details History of migraines. Admitted to [facility] last January. Seen by Neurology. Has also followed Rheumatology and Ortho for right Carpal Tunnel Syndrome. Considering surgery for Carpal Tunnel Syndrome in the summer. 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 Waiting for surgery scheduling at [facility]. Describes tightness and pain, from both shoulders going up to her neck, posterior neck, posterior head, even affecting right ear when she looks to the right. Feels better when she massages. Denies radiation down into her arms. Denies associated numbness on her upper extremities. No weakness. No change in bladder or bowel. No gait changes. [facility] Medical History History of abnormal cervical Pap smear Essential hypertension Lumbar pain Mild recurrent major depression Obesity (BMI 30-39.9) Polyarthralgia Urge urinary incontinence Migraines Leukocytosis Depression Renal calculi Surgical History Hx of cystoscopy History of colonoscopy History of surgery Hx of tubal ligation Hx of laparoscopy Hx of lithotripsy Family History (Updated 01/27/23 @ 09:38 by Zari Clemons MD) Mother Hx of diabetes mellitus Maternal Grandfather Family hx of prostate cancer Paternal Uncle Family hx of prostate cancer History of skin cancer Sister No problems noted. Paternal Uncle Prostate cancer Maternal Aunt Seizure Father Oxygen dependent Social History (Updated 03/11/23 @ 10:37 by Anna Felder [facility]) Household Members: Children Housing: House Are you a primary health care analyst to a significant other at home: No Do you presently have visiting nurse or other home services: No Alcohol intake: never Comment: sleeping Patient Tobacco Use Status: Never used Tobacco e-Cigarette/Vaping Use: Never Used Second Hand Smoke Exposure: No service: No Current occupational status: employed Current occupation: works at [employer] in the [employer] Current occupational exposures/hazards: No Cognitive needs: No Hearing needs: No Vision needs: No Female Reproductive History Menstrual Age of Menarche: 14 Review of Systems Const All systems reviewed & are unremarkable except as noted in HPI and below Physical Exam Vital Signs: BMI result Body Mass Index 32.4 Constitutional: Patient appears to be in no acute distress, well nourished and well developed. Patient was appropriately conversant and oriented. Good historian. MSK: Inspection reveals appropriate head and neck positioning. Very tight and trigger points noted on bilateral upper trapezius. No tenderness postauricular or occipital. Cervical ROM was full. Spurling's sign negative. No scapular winging. Bilateral shoulder, elbow and wrist ROM WNL. No ligamentous laxity or crepitance. No increased effusion. Negative Guzman sign, empty can test, speed's test. Strength is 5/5 in all muscle groups tested. No increased tone noted. Neurological: Neurologic examination of the upper and lower extremities was nonfocal with intact sensation, muscle stretch reflexes and without focal motor deficits . Franklin?s negative bilaterally. Babinski was down going bilaterally. Clonus was negative. Gait is non-antalgic without loss of balance. Results Reviewed Results Reviewed: I independently reviewed the results of the following: EMG done by Dr. Haro 07/31 showed prolonged distal latency right median motor nerve, but normal sensory latency. It also showed slowing of conduction [place] across the elbow right ulnar motor nerve. Shoulder x-ray done 08/2021, unremarkable shoulder. I reviewed records from the following: Hospital discharge summary Rheumatology Neurology Orthopedics Assessment & Plan Assessment & Plan (1) Myofascial pain: Code(s): M79.18 - Myalgia, other site (2) Cervicogenic headache: Code(s): G44.86 - Cervicogenic headache Plan: Suspect headaches/neck pain are from tight upper trapezius muscles, with trigger points. No signs of RTC or shoulder joint pathology. No signs of cervical myelopathy or radiculopathy on exam. Recommended PT for myofascial release. Then we can try trigger point injections, discussed how these are done, she is eager to proceed and we will schedule after a few weeks of PT have been done. (3) Cubital tunnel syndrome on right: Code(s): G56.21 - Lesion of ulnar nerve, right upper limb (4) Carpal tunnel syndrome of right wrist: Code(s): G56.01 - Carpal tunnel syndrome, right upper limb Plan: I reviewed the EMG done 07/31, as above. Since she is not yet scheduled for jean rip but considering it in the summer, I would recommend repeating the EMG first before surgery, testing BUE. Patient might be having parathyroid surgery, so she would have to do this after surgery but not before. Plan Assessment and plan discussed with patient, and patient was agreeable. All questions were answered thoroughly. Addis Ocasio MD, LIZZ Board Certified, [place] Board [employer] Physical Medicine and Rehabilitation (ABPMR) Board Certified, [place] Board of Electrodiagnostic Medicine (ABEM) Orders: Orders PT Evaluation and Treatment Today G44.86 - Cervicogenic headache, M79.18 - Myalgia, other site Coding Level of Care Code New Pt Level 4 (82090) Diagnoses Myofascial pain M79.18 Cervicogenic headache G44.86 Cubital tunnel syndrome on right G56.21 Carpal tunnel syndrome of right wrist G56.01
== END 2023-03-11 11:07 | disposition home or self-care (01) ==
PROVIDERS: PCP Internal Medicine; Visit Provider Physical Medicine & Rehabilitation
DX: M79.18 Myalgia, other site (principal); G44.86 Cervicogenic headache; G56.21 Lesion of ulnar nerve, right upper limb; G56.01 Carpal tunnel syndrome, right upper limb
CPT/HCPCS: 99204

== ENCOUNTER → 2023-03-11 10:23 | Outpatient (BNVA) | payer OTHER, SELFPAY | PROVIDERS: PCP Internal Medicine; Visit Provider Physical Medicine & Rehabilitation | DX: M79.18 Myalgia, other site (principal); G44.86 Cervicogenic headache; G56.21 Lesion of ulnar nerve, right upper limb; G56.01 Carpal tunnel syndrome, right upper limb | CPT/HCPCS: 99202 ==

== ENCOUNTER → 2023-03-24 07:26 | Outpatient (REF) | payer OTHER, SELFPAY ==
--- NOTE | ~2023-03-24 | NM_ITS ---
EXAMINATION: NM PARATHYROID SCAN CLINICAL INFORMATION: Nontoxic goiter, unspecified. Thyroid ultrasound done on 03/02/2023 showed a 5 mm solid nodule inferior to the left lobe of the thyroid gland, question parathyroid adenoma. For follow-up. COMPARISON: Thyroid ultrasound done on 03/02/2023. TECHNIQUE: A double radionuclide study of the thyroid bed region and upper chest in multiple projections was performed 4 hours after the oral administration of 990 microcuries I-123 sodium iodide and immediately following the intravenous administration of 30 mCi Tc-99m sestamibi. Repeat imaging was performed 2 hours later. The iodide images were electronically subtracted from the sestamibi images using different weighting factors. FINDINGS: There is homogeneous uptake of radioiodine throughout both lobes. The thyroid gland appears to be normal in size and shape. There are no focal areas of increased or diminished uptake. Technetium 99m sestamibi images demonstrate homogeneous thyroid activity. There are no focal areas of increased or decreased Technetium 99m sestamibi activity. Computer-generated digital subtraction images reveal no evidence of excess sestamibi activity. NM/NM parathyroid IMPRESSION: No evidence of excess sestamibi activity suggestive of parathyroid adenoma or hyperplasia. There is homogeneous uptake of radioiodine in the thyroid gland which is also normal in size and shape. Specifically, there is no correlate identified corresponding to the previous sonographic detected echogenic solid 5 mm nodule seen inferior to the left lobe of the thyroid gland.
== END ==
LOC: HO.NUCMED 07:26
PROVIDERS: PCP Internal Medicine; Visit Provider Internal Medicine
DX: D35.1 Benign neoplasm of parathyroid gland (principal)
CPT/HCPCS: 78070; A9500; A9516

== ENCOUNTER 2023-04-21 08:24 | Outpatient (AMB) | payer OTHER, SELFPAY ==
--- NOTE | 2023-04-21 08:26 | MHC.OFFVIS ---
Intake Vital Signs 04/21/23 08:27 Height 5 ft 2 in Weight 199 lb BMI 36.4 Intake Visit Reasons: Trigger inj. right side neck Intake Note: Riana is a 53 year old female who presents today for her first trigger point injection for tight upper trapezius muscles with trigger points causing cervicogenic headaches. At her last appointment she was given a prescription for physical therapy with myofascial release. 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: Yes Nuclear Powerplant Mechanic Helper Name: [id number] Information Interpreted: non-clinical & clinical Accompanied by: Self / Same As Patient Allergies Latex, Natural Rubber [LATEX, NATURAL RUBBER] Allergy (Intermediate, Verified 04/21/23 08:35) RASH HPI HPI Comments History of Present Illness Details Here for first trigger point injection PFSH Medical History History of abnormal cervical Pap smear Essential hypertension Lumbar pain Mild recurrent major depression Obesity (BMI 30-39.9) Polyarthralgia Urge urinary incontinence Migraines Leukocytosis Depression Renal calculi Surgical History Hx of cystoscopy History of colonoscopy History of surgery Hx of tubal ligation Hx of laparoscopy Hx of lithotripsy Family History (Updated 01/27/23 @ 09:38 by Zari Clemons MD) Mother Hx of diabetes mellitus Maternal Grandfather Family hx of prostate cancer Paternal Uncle Family hx of prostate cancer History of skin cancer Sister No problems noted. Paternal Uncle Prostate cancer Maternal Aunt Seizure Father Oxygen dependent Social History (Updated 03/11/23 @ 10:37 by Anna Felder [facility]) Household Members: Children Housing: House Are you a primary health care aide to a significant other at home: No Do you presently have visiting nurse or other home services: No Alcohol intake: never Comment: sleeping Patient Tobacco Use Status: Never used Tobacco e-Cigarette/Vaping Use: Never Used Second Hand Smoke Exposure: No service: No Current occupational status: employed Current occupation: works at [employer] in the [employer] department/ [employer] Current occupational exposures/hazards: No Cognitive needs: No Hearing needs: No Vision needs: No Female Reproductive History Menstrual Age of Menarche: 14 Physical Exam Vital Signs: BMI result Body Mass Index 36.4 Office Procedures Therapeutic Injection Therapeutic Injection Details: Trigger point injection, bilateral upper trapezius. Consent obtained. Trigger points palpated on 2 on right upper trapezius, 1 on left. 1 ml of 2% Lidocaine injected in each site, total of 3. Patient tolerated procedure well. Post-injection instructions given. 46655-Iietlik Point Injection =/>3 sites All charges added?: Procedure code (CPT) selection complete Assessment & Plan Assessment & Plan (1) Myofascial pain: Code(s): M79.18 - Myalgia, other site Plan Patient tolerated procedure well. Post injection instructions given. Assessment and plan discussed with patient, and patient was agreeable. All questions were answered thoroughly. Addis Ocasio MD, LIZZ Board Certified, [place] Board of Physical Medicine and Rehabilitation (ABPMR) Board Certified, [place] Board of Electrodiagnostic Medicine (ABEM) Orders: Orders Trigger Point Injection Today M79.18 - Myalgia, other site Coding Level of Care Code Procedure Only Diagnoses Myofascial pain M79.18 CPT Codes Therapeutic Injection - Ther Injection 2: 94332-Toqyanx Point Injection =/>3 sites ([id number])
[2023-04-21 08:27] VITALS: BMI 36.4
== END 2023-04-21 09:40 | disposition home or self-care (01) ==
PROVIDERS: PCP Internal Medicine; Visit Provider Physical Medicine & Rehabilitation
DX: M25.511 Pain in right shoulder (principal); M25.512 Pain in left shoulder; M79.18 Myalgia, other site
CPT/HCPCS: 20553

== ENCOUNTER → 2023-04-21 08:24 | Outpatient (BNVA) | payer OTHER, SELFPAY | PROVIDERS: PCP Internal Medicine; Visit Provider Physical Medicine & Rehabilitation | DX: M79.18 Myalgia, other site (principal) | CPT/HCPCS: 20553 ==

== ENCOUNTER 2023-04-26 09:00 | Outpatient (RCR) | payer OTHER, SELFPAY ==
--- NOTE | 2023-06-21 09:48 | MHC.PT.DC ---
[facility] [place] Office [place] [facility] [address] Shazia Treviño [address] [phone] F: [phone] F: [phone] F: [phone] F: [phone] Physical Therapy Discharge Report Diagnosis: CERVICOGENIC HEADACHES, NECK PAIN (KP) Date of Surgery: NA Date of Evaluation: 03/22/23 Date of Discharge: 04/26/23 Treatments to Date: 6 Cancellations to Date: 5 No Shows to Date: 0 Discharge Status: Patient Elected to Stop Discharge Summary: Pt HAD BEEN PROGRESSING IN PT WITH DECREASED TISSUE TENSION AND PAIN. CANCELLED LAST SCHEDULED VISIT AND DID NOT CHOOSE TO RESCHEDULE. IT HAS BEEN OVER 30 DAYS SINCE HER LAST VISIT, WE WILL DC THE CURRENT CHART. Electronically signed by: ISABELL LARA PT DPT Please sign and return to therapist. Thank you for your referral.
== END 2023-06-21 09:48 | disposition home or self-care (01) ==
LOC: HO.PT 09:00
PROVIDERS: PCP Internal Medicine; Visit Provider Physical Medicine & Rehabilitation
DX: G44.86 Cervicogenic headache (principal); M79.18 Myalgia, other site
CPT/HCPCS: 97110; 97140; 97161; 97535

== ENCOUNTER 2023-04-28 08:23 | Outpatient (AMB) | payer OTHER, SELFPAY ==
--- NOTE | 2023-04-28 08:39 | MHC.OFFVIS ---
Intake Vital Signs 04/28/23 08:41 Height 5 ft 2 in Weight 199 lb BMI 36.4 Intake Visit Reasons: Trigger inj. right side neck Intake Note: Riana is a 53 year old female who presents today for her second trigger point injection for tight upper trapezius muscles with trigger points causing cervicogenic headaches. She states that her last injection gave her about 2 - 3 days of relief. Allergies Latex, Natural Rubber [LATEX, NATURAL RUBBER] Allergy (Intermediate, Verified 04/28/23 08:41) RASH Medication List - Last Reconciled 04/28/23 by Addis Ocasio MD amitriptyline 25 mg PO BEDTIME 90 days cyclobenzaprine 10 mg PO BEDTIME PRN 90 days hydrochlorothiazide 12.5 mg PO DAILY nabumetone 750 mg PO BID PRN 90 days pantoprazole 40 mg PO DAILY pyridoxine (vitamin B6) 100 mg PO DAILY 90 days sennosides (Natural Senna Laxative) 8.6 mg PO BEDTIME PRN sumatriptan succinate (Imitrex) 100 mg PO DAILY PRN 90 days [wrist splint wear nightly & as much as possible throughout the day] HPI HPI Comments History of Present Illness Details She did not have any pain after last injection. [facility] Medical History History of abnormal cervical Pap smear Essential hypertension Lumbar pain Mild recurrent major depression Obesity (BMI 30-39.9) Polyarthralgia Urge urinary incontinence Migraines Leukocytosis Depression Renal calculi Surgical History Hx of cystoscopy History of colonoscopy History of surgery Hx of tubal ligation Hx of laparoscopy Hx of lithotripsy Family History (Updated 01/27/23 @ 09:38 by Zari Clemons MD) Mother Hx of diabetes mellitus Maternal Grandfather Family hx of prostate cancer Paternal Uncle Family hx of prostate cancer History of skin cancer Sister No problems noted. Paternal Uncle Prostate cancer Maternal Aunt Seizure Father Oxygen dependent Social History Household Members: Children Housing: House Are you a primary veterinarian laboratory animal care to a significant other at home: No Do you presently have visiting nurse or other home services: No Alcohol intake: never Comment: sleeping Patient Tobacco Use Status: Never used Tobacco e-Cigarette/Vaping Use: Never Used Second Hand Smoke Exposure: No service: No Current occupational status: employed Current occupation: works at [employer] in the [employer] Current occupational exposures/hazards: No Cognitive needs: No Hearing needs: No Vision needs: No Female Reproductive History Menstrual Age of Menarche: 14 Physical Exam Vital Signs: BMI result Body Mass Index 36.4 Office Procedures Therapeutic Injection Therapeutic Injection Details: Trigger point injection, bilateral upper trapezius. Consent obtained. Trigger points palpated, 4 on right upper trapezius, 1 on left. 1 ml of 2% Lidocaine injected in each site, total of 4. 82131-Xwraznj Point Injection =/>3 sites All charges added?: Procedure code (CPT) selection complete Assessment & Plan Assessment & Plan (1) Myofascial pain: Code(s): M79.18 - Myalgia, other site Plan Patient tolerated procedure well. Post injection instructions given. Assessment and plan discussed with patient, and patient was agreeable. All questions were answered thoroughly. Addis Ocasio MD, LIZZ Board Certified, [place] Board of Physical Medicine and Rehabilitation (ABPMR) Board Certified, [place] Board of Electrodiagnostic Medicine (ABEM) Orders: Orders Trigger Point Injection Today M79.18 - Myalgia, other site Coding Level of Care Code Procedure Only Diagnoses Myofascial pain M79.18 CPT Codes Therapeutic Injection - Ther Injection 2: 89358-Qyrcsiq Point Injection =/>3 sites ([id number])
[2023-04-28 08:41] VITALS: BMI 36.4
== END 2023-04-28 09:04 | disposition home or self-care (01) ==
PROVIDERS: PCP Internal Medicine; Visit Provider Physical Medicine & Rehabilitation
DX: M25.511 Pain in right shoulder (principal); M25.512 Pain in left shoulder; M79.18 Myalgia, other site
CPT/HCPCS: 20553

== ENCOUNTER → 2023-04-28 08:23 | Outpatient (BNVA) | payer OTHER, SELFPAY | PROVIDERS: PCP Internal Medicine; Visit Provider Physical Medicine & Rehabilitation | DX: M79.18 Myalgia, other site (principal) | CPT/HCPCS: 20553 ==

== ENCOUNTER 2023-05-03 08:51 | Outpatient (AMB) | payer OTHER, SELFPAY ==
[2023-05-03 10:14] VITALS: BP 128/86; PULSE 93; TEMP 36.8; O2SAT 97; BMI 37.4
--- NOTE | 2023-05-03 10:14 | MHC.OFFWIV ---
Intake Vital Signs 05/03/23 10:14 Height 5 ft 2 in Weight 204 lb 6 oz BMI 37.4 BP 128/86 Blood Pressure Location Rt brachial Position Sitting Pulse 93 Pulse Source Pulse Oximeter Temp 98.3 F Temp Source Oral Pulse Oximetry (%) 97 Oxygen Delivery Method Room Air Intake Visit Reasons: EP RT eye swelling Intake Note: Pt presents to the office today for right eye swelling. She stated the swelling started 3 days ago but yesterday that bottom part of her eye is starting to swell as well. Pt denies any colored discharge from her eye. Patient Tobacco Use Status: Never used Tobacco Allergies Latex, Natural Rubber [LATEX, NATURAL RUBBER] Allergy (Intermediate, Verified 05/03/23 10:17) RASH HPI HPI Comments History of Present Illness Details presents to the walkin today for sick visit Complaining of right eyelid itching, burning with bumps the lash line for 2 days. Today she awoke with right upper eyelid swelling Reports clear tearing of the eye but denies purulent drainage Denies pain to the eye, denies vision changes, headache. Patient denies pain with eye movement. Denies fever, cough, sinus congestion, sore throat or ear ache. Denies trauma to the eye or foreign body sensation. Patient denies use of contacts or makeup She has been using warm compresses without improvement of her symptoms PFSH Medical History History of abnormal cervical Pap smear Essential hypertension Lumbar pain Mild recurrent major depression Obesity (BMI 30-39.9) Polyarthralgia Urge urinary incontinence Migraines Leukocytosis Depression Renal calculi Surgical History Hx of cystoscopy History of colonoscopy History of surgery Hx of tubal ligation Hx of laparoscopy Hx of lithotripsy Family History Mother Hx of diabetes mellitus Maternal Grandfather Family hx of prostate cancer Paternal Uncle Family hx of prostate cancer History of skin cancer Sister No problems noted. Paternal Uncle Prostate cancer Maternal Aunt Seizure Father Oxygen dependent Social History Household Members: Children Housing: House Are you a primary behavioral health care coordinator to a significant other at home: No Do you presently have visiting nurse or other home services: No Alcohol intake: never Comment: sleeping Patient Tobacco Use Status: Never used Tobacco e-Cigarette/Vaping Use: Never Used Second Hand Smoke Exposure: No service: No Current occupational status: employed Current occupation: works at [employer] in the [employer]/ [employer] Current occupational exposures/hazards: No Cognitive needs: No Hearing needs: No Vision needs: No Female Reproductive History Menstrual Age of Menarche: 14 Review of Systems Const All systems reviewed & are unremarkable except as noted in HPI and below Physical Exam Vital Signs: Last Vital Signs Temp 98.3 F 05/03/23 10:14 Pulse 93 05/03/23 10:14 BP 128/86 05/03/23 10:14 Pulse Ox 97 05/03/23 10:14 Oxygen Delivery Method Room Air 05/03/23 10:14 BMI result Body Mass Index 37.4 General: awake, alert, oriented. Answers questions appropriately. Fully engaged in examination. Skin: warm, dry, intact HEENT: Normocephalic. Hearing intact. Right eye: Negative mucoid discharge, picayune conjunctival injection. right upper eyelid swelling, inflammation of upper and lower eyelash follicles Cardiac: External chest normal in appearance. Respiratory: No cough, audible wheezing or stridor. Abdomen: without gross distension. MS: No obvious swelling or deformities. Neurological: Oriented to person, place, time and situation. Thought process intact. Psychiatric: Appropriate mood and affect. Good judgment and insight. Assessment & Plan Assessment & Plan (1) Blepharitis of eyelid of right eye: Code(s): H01.003 - Unspecified blepharitis right eye, unspecified eyelid Plan Patient presents to the [facility] for right eye irritation Erythromycin 0.5in 2 right eye twice daily for 7 days Warm compresses to right eye 3-4 times daily, leave on for 10 minutes. Avoid touching, rubbing the eyes. Do not use same area of facecloth to clean both eyes. All questions and concerns were answered during the visit. Patient agrees with the plan. Follow up with pcp or return to [facility] for any new or worsening symptoms. Medications: New erythromycin 0.5 inches ophthalmic-Right BID 7 days 3.5 grams 0RF Coding Level of Care Code Est Pt Level 3 (09682) Diagnoses Blepharitis of eyelid of right eye H01.003
== END 2023-05-03 10:50 | disposition home or self-care (01) ==
PROVIDERS: PCP Internal Medicine; Visit Provider Registered Nurse Emergency
DX: H01.003 Unspecified blepharitis right eye, unspecified eyelid (principal)
CPT/HCPCS: 99213

== ENCOUNTER 2023-05-05 08:15 | Outpatient (AMB) | payer OTHER, SELFPAY ==
--- NOTE | 2023-05-05 08:31 | A.OFFVIS_ITS ---
Intake Vital Signs 05/05/23 08:36 Height 5 ft 2 in Weight 204 lb BMI 37.3 Intake Visit Reasons: Trigger inj. right side neck Intake Note: Riana is a 53 year old female who presents today for her third trigger point injection for tight upper trapezius muscles with trigger points causing cervicogenic headaches. She states that her last injection gave her about 2 - 3 days of relief. Allergies Latex, Natural Rubber [LATEX, NATURAL RUBBER] Allergy (Intermediate, Verified 05/05/23 08:36) RASH HPI HPI Comments History of Present Illness Details Here for 3rd trigger point injection. She had a few days relief from the 2nd trigger point injection. Presenting with blepharitis right. Seen in walk-in clinic. Denies fever. No steroid to be injected today anyway. No signs of rash or skin infection on area to be injected. No contraindication to proceed with trigger point injection. Patient eager to proceed. [facility] Medical History History of abnormal cervical Pap smear Essential hypertension Lumbar pain Mild recurrent major depression Obesity (BMI 30-39.9) Polyarthralgia Urge urinary incontinence Migraines Leukocytosis Depression Renal calculi Surgical History Hx of cystoscopy History of colonoscopy History of surgery Hx of tubal ligation Hx of laparoscopy Hx of lithotripsy Family History Mother Hx of diabetes mellitus Maternal Grandfather Family hx of prostate cancer Paternal Uncle Family hx of prostate cancer History of skin cancer Sister No problems noted. Paternal Uncle Prostate cancer Maternal Aunt Seizure Father Oxygen dependent Social History Household Members: Children Housing: House Are you a primary day care home mother to a significant other at home: No Do you presently have visiting nurse or other home services: No Alcohol intake: never Comment: sleeping Patient Tobacco Use Status: Never used Tobacco e-Cigarette/Vaping Use: Never Used Second Hand Smoke Exposure: No service: No Current occupational status: employed Current occupation: works at [employer] in the [employer] department/ [employer] Current occupational exposures/hazards: No Cognitive needs: No Hearing needs: No Vision needs: No Female Reproductive History Menstrual Age of Menarche: 14 Physical Exam Vital Signs: BMI result Body Mass Index 37.3 Office Procedures Therapeutic Injection Therapeutic Injection Details: Trigger point injection, right upper trapezius. Conset obtained. Trigger points palpated, 3 on right upper trapezius. 1 ml of 2% Lidocaine injected in each site, total of 3 mL. Patient tolerated procedure well. Post-injection instructions given. [id number]-Bgmnvrz Point Injection =/>3 sites All charges added?: Procedure code (CPT) selection complete Assessment & Plan Assessment & Plan (1) Myofascial pain: Code(s): M79.18 - Myalgia, other site Plan Patient tolerated procedure well. Post injection instructions given. Follow up in 4 weeks. If continues to have trigger points, considering Botox injection. Assessment and plan discussed with patient, and patient was agreeable. All questions were answered thoroughly. Addis Ocasio MD, LIZZ Board Certified, [place] Board of Physical Medicine and Rehabilitation (ABPMR) Board Certified, [place] Board of Electrodiagnostic Medicine (ABEM) Orders: Orders Trigger Point Injection Today M79.18 - Myalgia, other site Coding Level of Care Code Procedure Only Diagnoses Myofascial pain M79.18 CPT Codes Therapeutic Injection - Ther Injection 2: 51339-Wyqknad Point Injection =/>3 sites ([id number])
[2023-05-05 08:36] VITALS: BMI 37.3
== END 2023-05-05 08:53 | disposition home or self-care (01) ==
PROVIDERS: PCP Internal Medicine; Visit Provider Physical Medicine & Rehabilitation
DX: M25.511 Pain in right shoulder (principal); M25.512 Pain in left shoulder; M79.18 Myalgia, other site
CPT/HCPCS: 20553

== ENCOUNTER → 2023-05-05 08:15 | Outpatient (BNVA) | payer OTHER, SELFPAY | PROVIDERS: PCP Internal Medicine; Visit Provider Physical Medicine & Rehabilitation | DX: M79.18 Myalgia, other site (principal) | CPT/HCPCS: 20553 ==

== ENCOUNTER 2023-05-06 08:41 | Outpatient (AMB) | payer OTHER, SELFPAY ==
[2023-05-06 09:04] VITALS: BP 120/80; PULSE 93; TEMP 36.3; O2SAT 98; BMI 36.8
--- NOTE | 2023-05-06 09:04 | AM.OFFWIN_ITS ---
Intake Vital Signs 05/06/23 09:04 Height 5 ft 2 in Weight 201 lb BMI 36.8 BP 120/80 Blood Pressure Location Lt brachial Position Sitting Pulse 93 Pulse Source Pulse Oximeter Temp 97.4 F Temp Source Temporal Artery Scan Pulse Oximetry (%) 98 Oxygen Delivery Method Room Air Intake Visit Reasons: EP RT eye Intake Note: pt is here today for rt eye started wednesday Patient Tobacco Use Status: Never used Tobacco Allergies Latex, Natural Rubber [LATEX, NATURAL RUBBER] Allergy (Intermediate, Verified 05/06/23 09:09) RASH Do you need a note to return to daycare/school/sports/work: No HPI HPI Comments History of Present Illness Details 53 y/o female who presents to walk in [facility] with c/o right eye redness and pain. Pt was seen this past Wednesday at walk in clinic with similar symptoms. She was prescribed Erythromycin ointment for 7 days. Today Pt reports no improvement of symptoms. Denies vision changes. Denies light sensitivity. [facility] Medical History History of abnormal cervical Pap smear Essential hypertension Lumbar pain Mild recurrent major depression Obesity (BMI 30-39.9) Polyarthralgia Urge urinary incontinence Migraines Leukocytosis Depression Renal calculi Surgical History Hx of cystoscopy History of colonoscopy History of surgery Hx of tubal ligation Hx of laparoscopy Hx of lithotripsy Family History Mother Hx of diabetes mellitus Maternal Grandfather Family hx of prostate cancer Paternal Uncle Family hx of prostate cancer History of skin cancer Sister No problems noted. Paternal Uncle Prostate cancer Maternal Aunt Seizure Father Oxygen dependent Social History Household Members: Children Housing: House Are you a primary healthcare interpreter to a significant other at home: No Do you presently have visiting nurse or other home services: No Alcohol intake: never Comment: sleeping Patient Tobacco Use Status: Never used Tobacco e-Cigarette/Vaping Use: Never Used Second Hand Smoke Exposure: No service: No Current occupational status: employed Current occupation: works at [employer] in the [employer] department/ [employer] hand Current occupational exposures/hazards: No Cognitive needs: No Hearing needs: No Vision needs: No Female Reproductive History Menstrual Age of Menarche: 14 Review of Systems Const All systems reviewed & are unremarkable except as noted in HPI and below Physical Exam Vital Signs: Last Vital Signs Temp 97.4 F 05/06/23 09:04 Pulse 93 05/06/23 09:04 BP 120/80 05/06/23 09:04 Pulse Ox 98 05/06/23 09:04 Oxygen Delivery Method Room Air 05/06/23 09:04 BMI result Body Mass Index 36.8 Const General: comfortable and no acute distress Orientation/consciousness: patient oriented x3 Eyes Visual Watson: normal visual watson by confrontation Conjunctivae: conjunctival abnormal right conjunctival injection Pupils: Equal, round and reactive pupils present EOM: EOMs intact bilaterally Direct Ophthalmoscopy: normal light reflex Neuro General: patient oriented x3 and gait normal Cranial nerves: Yes Equal, round and reactive pupils present Psych Speech and movement: Normal speech and movement present Assessment & Plan Assessment & Plan (1) Blepharitis of eyelid of right eye: Code(s): H01.003 - Unspecified blepharitis right eye, unspecified eyelid Qualifiers: Blepharitis type: unspecified type Eyelid: both upper and lower Qualified Code(s): H01.00A - Unspecified blepharitis right eye, upper and lower eyelids Plan: - Stop Exryth ointment. - Start taking Azithromycin as directed - Continue with warm compress - Eye Hygiene is important. Medications: New azithromycin 1% Instill 1 drop into affected eye(s) twice daily (8 to 12 hours apart) for 2 days, then 1 drop into affected eye(s) once daily for the next 5 days 2.5 mL 0RF Coding Level of Care Code Est Pt Level 3 (96511) Diagnoses Blepharitis of both upper and lower eyelid of right eye, unspecified type H01.00A Blepharitis type: unspecified type Eyelid: both upper and lower Time Spent (min) 15
== END 2023-05-06 10:08 | disposition home or self-care (01) ==
PROVIDERS: PCP Internal Medicine; Visit Provider Nurse Practitioner Family
DX: H01.00A Unspecified blepharitis right eye, upper and lower eyelids (principal)
CPT/HCPCS: 99213

== ENCOUNTER 2023-05-18 08:51 | Outpatient (REF) | payer OTHER, SELFPAY ==
[2023-05-18 09:59] LABS: Appearance Urine Cloudy; Color Urine Yellow; Glucose Urine UA Negative (Negative); Leukocyte Esterase Urine Small (1+) (Negative); Nitrite Urine Negative (Negative); PH 6.5 (5.0-9.0); Specific Gravity - Urine 1.025 (1.005-1.025); UMIC TRIGGER UACC YES; Urine Blood Moderate (2+) (Negative); Urine Ketones Negative (Negative); Urine Protein Negative (Neg-Trace)
[2023-05-18 10:15] LABS: Bacteria Urine 4+ (None Seen); Hyaline Casts Urine 0-2 /LPF (0-2); UACC Culture Trigger YES
[2023-05-18 10:16] LABS: WBC Urine 21-50 /HPF (0-5)
[2023-05-18 11:21] LABS: Alanine Aminotransferase 20 U/L (0-31); Albumin Level 4.2 g/dL (3.5-5.0); Alkaline Phosphatase 85 U/L (39-117); Anion Gap 12 (12-20); Aspartate Amino Transferase 19 U/L (5-31); Bilirubin Total 0.4 mg/dL (0.0-1.0); Blood Urea Nitrogen 12 mg/dL (9-16); Calcium 9.3 mg/dL (8.4-10.2); Carbon Dioxide 27 mmol/L (22-29); Chloride 106 mmol/L (96-108); Cholesterol 205 mg/dL (<200); Estimated Glomerular Filt Rate > 60; Glucose Fasting 89 mg/dL (60-99); HDL Cholesterol 51 mg/dL (>40); LDL Cholesterol Calculated 135 mg/dL (<100); Potassium 4.3 mmol/L (3.3-5.1); Sodium 141 mmol/L (135-145); Total Protein 7.6 g/dL (6.5-8.0); Triglycerides 99 mg/dL (<150)
[2023-05-18 11:43] LABS: Vitamin D 25-OH Total 12.5 ng/mL (>30)
== END 2023-05-18 08:52 | disposition home or self-care (01) ==
LOC: HO.LAB 08:51
PROVIDERS: PCP Internal Medicine; Visit Provider Internal Medicine
DX: E78.5 Hyperlipidemia, unspecified (principal); E55.9 Vitamin D deficiency, unspecified; M25.50 Pain in unspecified joint
CPT/HCPCS: 36415; 80053; 80061; 81001; 81003; 82306; 87086; 87088; 87186

== ENCOUNTER 2023-06-09 08:33 | Outpatient (AMB) | payer OTHER, SELFPAY ==
--- NOTE | 2023-06-09 08:56 | A.OFFVIS_ITS ---
Vital Signs 06/09/23 09:00 Height 5 ft 2 in Weight 201 lb BMI 36.8 Intake Visit Reasons: OV-right side neck-follow up Intake Note: Riana is a 53 year olf female who presents today for a follow up of her right sided neck pain, her 3rd trigger point injection was administered on 05/05/23 in the right upper trapezius and she reports about 2 days of relief from this. Payment Analyst Required: Yes Allergies Latex, Natural Rubber [LATEX, NATURAL RUBBER] Allergy (Intermediate, Verified 06/09/23 09:00) RASH HPI Comments Details: History of migraines. Admitted to [facility] last January. Seen by Neurology. Has also followed Rheumatology and Ortho for right Carpal Tunnel Syndrome. Considering surgery for Carpal Tunnel Syndrome in the summer. 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 Follows at [facility]. Described tightness and pain, from both shoulders going up to her neck, posterior neck, posterior head, even affecting right ear when she looks to the right. Feels better when she massages. Denies radiation down into her arms. Denies associated numbness on her upper extremities. No weakness. No change in bladder or bowel. No gait changes. We have done a series of trigger point injections to right upper trapezius. She admits that it does feel easier and less tight. She has not had any severe headache since. She is overall satisfied with her improvement. [facility] Medical History History of abnormal cervical Pap smear Essential hypertension Lumbar pain Mild recurrent major depression Obesity (BMI 30-39.9) Polyarthralgia Urge urinary incontinence Migraines Leukocytosis Depression Renal calculi Surgical History Hx of cystoscopy History of colonoscopy History of surgery Hx of tubal ligation Hx of laparoscopy Hx of lithotripsy Family History Mother Hx of diabetes mellitus Maternal Grandfather Family hx of prostate cancer Paternal Uncle Family hx of prostate cancer History of skin cancer Sister No problems noted. Paternal Uncle Prostate cancer Maternal Aunt Seizure Father Oxygen dependent Social History Household Members: Children Housing: House Are you a primary client care manager to a significant other at home: No Do you presently have visiting nurse or other home services: No Alcohol intake: never Comment: sleeping Patient Tobacco Use Status: Never used Tobacco e-Cigarette/Vaping Use: Never Used Second Hand Smoke Exposure: No service: No Current occupational status: employed Current occupation: works at [employer] in the [employer] hand Current occupational exposures/hazards: No Cognitive needs: No Hearing needs: No Vision needs: No Female Reproductive History Menstrual Age of Menarche: 14 Physical Exam Vital Signs: BMI result Body Mass Index 36.8 Constitutional: Patient appears to be in no acute distress, well nourished and well developed. Patient was appropriately conversant and oriented. Good historian. MSK: Inspection reveals appropriate head and neck positioning. Much less tight and smaller trigger point on right upper trapezius. No tenderness postauricular or occipital. Cervical ROM was full. Spurling's sign negative. No scapular winging. Bilateral shoulder, elbow and wrist ROM WNL. No ligamentous laxity or crepitance. No increased effusion. Negative Guzman sign, empty can test, speed's test. Strength is 5/5 in all muscle groups tested. No increased tone noted. Neurological: Neurologic examination of the upper and lower extremities was nonfocal with intact sensation, muscle stretch reflexes and without focal motor deficits . Franklin?s negative bilaterally. Gait is non-antalgic without loss of balance. Results Reviewed Results Reviewed: Reviewed notes from pain management Assessment & Plan Assessment & Plan (1) Myofascial pain: Code(s): M79.18 - Myalgia, other site Category: Medical Plan Patient much improved since trigger point injections. Gave her option of seeing this through, continuing exercises and stretches at home, versus getting more aggressive with the trigger point with botulinum toxin injection. As she is feeling much better, she opts for the 1st option. I agree with this. Patient feels reassured. Continue exercises and stretches. She does say that she gets some tightness with repetitive motion such as gardening. She can apply heating pad before and after. She can use [id number] icy hot lidocaine roller as well. Instructions given. Assessment and plan discussed with patient, and patient was agreeable. All questions were answered thoroughly. Follow up 3 months. Addis Ocasio MD, LIZZ Board Certified, [place] Board of Physical Medicine and Rehabilitation (ABPMR) Board Certified, [place] Board of Electrodiagnostic Medicine (ABEM) Coding Level of Care Code Est Pt Level 3 (94766) Diagnoses Myofascial pain M79.18
[2023-06-09 09:00] VITALS: BMI 36.8
== END 2023-06-09 09:19 | disposition home or self-care (01) ==
PROVIDERS: PCP Internal Medicine; Visit Provider Physical Medicine & Rehabilitation
DX: M79.18 Myalgia, other site (principal)
CPT/HCPCS: 99213

== ENCOUNTER → 2023-06-09 08:33 | Outpatient (BNVA) | payer OTHER, SELFPAY | PROVIDERS: PCP Internal Medicine; Visit Provider Physical Medicine & Rehabilitation | DX: M79.18 Myalgia, other site (principal) | CPT/HCPCS: 99212 ==

== ENCOUNTER 2023-10-04 10:44 | Outpatient (REF) | payer OTHER, SELFPAY ==
--- NOTE | ~2023-10-04 | US_ITS ---
EXAMINATION: US BILATERAL KIDNEYS CLINICAL INFORMATION: Calculus of kidney. COMPARISON: Renal ultrasound 11/30/2022. TECHNIQUE: Real-time imaging of the kidneys. FINDINGS: RIGHT KIDNEY: 10.2 x 4.3 x 5.0 cm (SAG x AP x TRV). The kidney is normal in size, contour, and echogenicity. Renal cortical thickness is normal. No calculi or focal parenchymal lesions. No hydronephrosis. LEFT KIDNEY: 10.4 x 4.5 x 4.9 cm (SAG x AP x TRV). The kidney is normal in size, contour, and echogenicity. Renal cortical thickness is normal. No calculi or focal parenchymal lesions. No hydronephrosis. US/US renal BI IMPRESSION: No visible nephrolithiasis or hydronephrosis. Electronically signed by: Meño Chatterjee MD 10/13/2023 04:08 PM EDT
== END 2023-10-04 10:45 | disposition home or self-care (01) ==
LOC: HO.HMGCX 10:44
PROVIDERS: PCP Internal Medicine; Visit Provider Urology
DX: N20.0 Calculus of kidney (principal)
CPT/HCPCS: 76775

== ENCOUNTER 2023-11-03 15:08 | Outpatient (AMB) | payer OTHER, SELFPAY ==
[2023-11-03 15:10] VITALS: BP 130/80; PULSE 83; TEMP 36.6; O2SAT 98; BMI 36.8
--- NOTE | 2023-11-03 15:10 | AM.OFFWIN_ITS ---
Intake Vital Signs 3 11/03/23 15:10 Height 5 ft 2 in Weight 201 lb BMI 36.8 BP 130/80 Blood Pressure Location Rt brachial Position Sitting Pulse 83 Pulse Source Pulse Oximeter Temp 97.8 F Temp Source Oral Pulse Oximetry (%) 98 Intake Visit Reasons: EP lower back pain Intake Note: pt is here for lower back pain Patient Tobacco Use Status: Never used Tobacco Allergies Latex, Natural Rubber [LATEX, NATURAL RUBBER] Allergy (Intermediate, Verified 11/03/23 15:11) RASH Medication List - Last Reconciled 11/03/23 by Gregory Haro MD amitriptyline 25 mg PO BEDTIME 90 days cholecalciferol (vitamin D3) 50 mcg PO DAILY 90 days cyclobenzaprine 10 mg PO BEDTIME PRN 90 days hydrochlorothiazide 12.5 mg PO DAILY nabumetone 750 mg PO BID PRN 90 days nystatin 1 appl topical BID 7 days pantoprazole 40 mg PO DAILY pyridoxine (vitamin B6) 100 mg PO DAILY 90 days sennosides (Natural Senna Laxative) 8.6 mg PO BEDTIME PRN sumatriptan succinate (Imitrex) 100 mg PO DAILY PRN 90 days topiramate 25 mg PO DAILY [wrist splint wear nightly & as much as possible throughout the day] Do you need a note to return to daycare/school/sports/work: No HPI EP lower back pain 2 HPI0 Details Patient is a 53-year-old female came in today to be evaluated for back pain Patient works in [employer] and her work involves lifting and bending frequently I see that she is on nabumetone 750 mg which is not helping along with a muscle relaxer I have told her to wear a back belt while at work to support her back I have also ordered x-ray of her lumbar spine as a baseline Diclofenac 75 mg b.i.d. with food sent for 10 days Pain is nonradiating Review system is negative for any nausea vomiting frequency of urination dysuria or blood in urine Follow up with primary care [facility] Medical History History of abnormal cervical Pap smear Essential hypertension Lumbar pain Mild recurrent major depression Obesity (BMI 30-39.9) Polyarthralgia Urge urinary incontinence Migraines Leukocytosis Depression Renal calculi Surgical History Hx of cystoscopy History of colonoscopy History of surgery Hx of tubal ligation Hx of laparoscopy Hx of lithotripsy Family History Mother Hx of diabetes mellitus Maternal Grandfather Family hx of prostate cancer Paternal Uncle Family hx of prostate cancer History of skin cancer Sister No problems noted. Paternal Uncle Prostate cancer Maternal Aunt Seizure Father Oxygen dependent Social History Household Members: Children Housing: House Are you a primary customer care associate to a significant other at home: No Do you presently have visiting nurse or other home services: No Alcohol intake: never Comment: sleeping Patient Tobacco Use Status: Never used Tobacco e-Cigarette/Vaping Use: Never Used Second Hand Smoke Exposure: No service: No Current occupational status: employed Current occupation: works at [employer] in the [employer] department/ [employer] Current occupational exposures/hazards: No Cognitive needs: No Hearing needs: No Vision needs: No Female Reproductive History Menstrual Age of Menarche: 14 Review of Systems Const All systems reviewed & are unremarkable except as noted in HPI and below Physical Exam Vital Signs: Last Vital Signs Temp 97.8 F 11/03/23 15:10 Pulse 83 11/03/23 15:10 BP 130/80 11/03/23 15:10 Pulse Ox 98 11/03/23 15:10 BMI result Body Mass Index 36.8 Const General: no acute distress Orientation/consciousness: patient oriented x3 Eyes General: appearance normal, both eyes and all related structures Resp Effort & Inspection: normal respiratory effort and able to speak in complete sentences General: Yes no CVA tenderness Back/Spine/Pelvis Back: no CVA tenderness Back/spine/pelvis image: 2 1. Site of pain more so paraspinal, range of motion intact straight leg negative bilateral, motor sensory intact Neuro General: patient oriented x3 Psych Mental Status: mental status grossly normal Assessment & Plan Assessment & Plan (1) Lumbar pain: Code(s): M54.50 - Low back pain, unspecified Plan Patient is a 53-year-old female came in today to be evaluated for back pain Patient works in [employer] and her work involves lifting and bending frequently I see that she is on nabumetone 750 mg which is not helping along with a muscle relaxer I have told her to wear a back belt while at work to support her back I have also ordered x-ray of her lumbar spine as a baseline Diclofenac 75 mg b.i.d. with food sent for 10 days Pain is nonradiating Review system is negative for any nausea vomiting frequency of urination dysuria or blood in urine Follow up with primary care Orders: Orders 2 XR lumbar spine 2-3V Today M54.50 - Low back pain, unspecified Medications: New 2 diclofenac sodium 75 mg PO BID 20 tabs 0RF pain 10 days Discontinued 2 nabumetone Discontinued Reason: Doctor's Order 750 mg PO BID 90 days PRN 180 tabs 3RF Pain (Scale Score 4-6) Coding Level of Care Code Est Pt Level 3 (06439) Diagnoses Lumbar pain M54.50
== END 2023-11-03 15:52 | disposition home or self-care (01) ==
PROVIDERS: PCP Internal Medicine; Visit Provider Internal Medicine
DX: M54.50 Low back pain, unspecified (principal)

== ENCOUNTER → 2023-11-03 15:08 | Outpatient (BNVA) | payer OTHER, SELFPAY | PROVIDERS: PCP Internal Medicine ==

== ENCOUNTER 2023-11-03 15:34 | Outpatient (REF) | payer OTHER, SELFPAY ==
--- NOTE | ~2023-11-03 | XR_ITS ---
EXAMINATION: XR LUMBOSACRAL SPINE CLINICAL INFORMATION: M54.50 - Low back pain, unspecified COMPARISON: MR lumbar 06/03/2021. X-ray lumbar 04/11/2013. TECHNIQUE: Three views of the lumbosacral spine. FINDINGS: Normal bone mineralization. No scoliosis. Normal lordosis. 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 Partially sacralized L5. No fractures, dislocation, subluxation, or compression deformities. No focal bony abnormalities. There is mild disc space narrowing noted L4-5 and L5-S1. Remainder of the intervertebral discs are preserved. There are mild hypertrophic degenerative facet changes L4-S1. Sacrum and SI joints appear normal. XR/XR lumbar spine 2-3V IMPRESSION: 1. Partially sacralized L5 vertebral body. Hypoplastic ribs at T12. 2. No acute findings of the lumbar spine. 3. Mild degenerative disc and facet changes L4-S1. Electronically signed by: Pratik Perales MD 01/11/2024 11:02 AM JAIDEN
== END 2023-11-03 15:35 | disposition home or self-care (01) ==
LOC: HO.HMGCX 15:34
PROVIDERS: PCP Internal Medicine; Visit Provider Internal Medicine
DX: M54.50 Low back pain, unspecified (principal)
CPT/HCPCS: 72100; 99212

== ENCOUNTER → 2023-11-03 15:37 | Outpatient (BNV) | payer OTHER, SELFPAY | PROVIDERS: PCP Internal Medicine; Visit Provider Radiology Diagnostic Radiology | DX: M54.40 Lumbago with sciatica, unspecified side (principal) | CPT/HCPCS: 72100 ==

== ENCOUNTER 2024-01-26 14:38 | Outpatient (AMB) | payer OTHER, SELFPAY ==
[2024-01-26 14:55] VITALS: BMI 36.8
--- NOTE | 2024-01-26 14:55 | MHC.OFFVIS ---
Vital Signs 01/26/24 14:55 Height 5 ft 2 in Weight 201 lb BMI 36.8 Intake Visit Reasons: OV-Carpal tunnel syndrome, Rt upper limb Intake Note: Riana 53 yr old right hand dominant female presents today for a follow up visit for her right hand CTS. Last seen February 2023, with Miguel, for CTS where patient stated she was not ready for surgery. Currently states her symptoms have worsen and is not able to get a good night rest. She is having elbow pain, tenderness and weakness as well and is not sure if this is due to her CTS. Denies numbness or tingling in her ring or small finger. She would like to have CTR. EMG of the right upper extremity, obtained on 07/16/2022, revealed: 1. Mild right ulnar neuropathy across cubital tunnel. 2. Mild right median neuropathy across carpal tunnel. Allergies Latex, Natural Rubber [LATEX, NATURAL RUBBER] Allergy (Intermediate, Verified 01/26/24 14:57) RASH HPI HPI OV-Carpal tunnel syndrome, Rt upper limb: Details: Riana is a 53 year old Bangladeshi speaking woman who presents for a NCS review of her right hand numbness. She complains of numbness primarily in the median nerve distribution. Symptoms intermittent, but daily, worse at night. She denies any numbness in the ring & small fingers. She also complains of pain in her right arm, radiating from her hand into her forearm & elbow. This occurs primarily with activities. [facility] Medical History History of abnormal cervical Pap smear Essential hypertension Lumbar pain Mild recurrent major depression Obesity (BMI 30-39.9) Polyarthralgia Urge urinary incontinence Migraines Leukocytosis Depression Renal calculi Surgical History Hx of cystoscopy History of colonoscopy History of surgery Hx of tubal ligation Hx of laparoscopy Hx of lithotripsy Family History Mother Hx of diabetes mellitus Maternal Grandfather Family hx of prostate cancer Paternal Uncle Family hx of prostate cancer History of skin cancer Sister No problems noted. Paternal Uncle Prostate cancer Maternal Aunt Seizure Father Oxygen dependent Social History Household Members: Children Housing: House Are you a primary manager of care to a significant other at home: No Do you presently have visiting nurse or other home services: No Alcohol intake: never Comment: sleeping Patient Tobacco Use Status: Never used Tobacco e-Cigarette/Vaping Use: Never Used Second Hand Smoke Exposure: No service: No Current occupational status: employed Current occupation: works at [employer] in the [employer] Current occupational exposures/hazards: No Cognitive needs: No Hearing needs: No Vision needs: No Female Reproductive History Menstrual Age of Menarche: 14 Review of Systems Const All systems reviewed & are unremarkable except as noted in HPI and below Physical Exam Vital Signs: BMI result Body Mass Index 36.8 Const General: cooperative, healthy appearing and no acute distress Orientation/consciousness: patient oriented x3 HEENT Head: Yes normocephalic and Yes atraumatic Eyes EOM: EOMs intact bilaterally Resp Effort & Inspection: normal respiratory effort and able to speak in complete sentences Cardio Jugular venous distension: no JVD Skin General skin exam: turgor normal Rashes: no rashes Neuro General: patient oriented x3 Extrem Other: Evaluation of Right Upper Extremity: The patient is alert, oriented, and in no acute distress Neuro: Median, Ulnar, Radial nerves motor and sensory intact and sensation is normal to the tips of all digits Vascular: Cap refill brisk ROM: She can make a fist and extend all her digits Skin: No lacerations or abrasions. General: No Ecchymosis. No Erythema or evidence of infection. Mild tenderness over the extensor origin just distal to the lateral epicondyle Pain referred here with resisted wrist extension Nerve Cnduction study: Right-side only IMPRESSION: 1. Mild right ulnar neuropathy across cubital tunnel. 2. Mild right median neuropathy across carpal tunnel. Lee Ann Haro MD 07/16/2022 Psych Appearance: grossly normal Affect: normal affect Attitude: cooperative Assessment & Plan Assessment & Plan (1) Carpal tunnel syndrome of right wrist: Code(s): G56.01 - Carpal tunnel syndrome, right upper limb Category: Medical (2) Cubital tunnel syndrome on right: Code(s): G56.21 - Lesion of ulnar nerve, right upper limb Category: Medical (3) Right lateral epicondylitis: Code(s): M77.11 - Lateral epicondylitis, right elbow Category: Medical (4) Polyarthralgia: Code(s): M25.50 - Pain in unspecified joint Category: Medical Plan Assessment & Plan: 1. Right carpal tunnel syndrome, mild Symptoms intermittent, but daily, worse at night I educated her about this condition I discussed operative and non-operative treatment options The patient would like to proceed with surgery The risks and benefits of operative treatment were discussed with the patient and the patient wishes to proceed with surgery. These risks include, but are not limited to risk of damage to blood vessels, nerves, tendons, infection, recurrence, incomplete relief of preoperative symptoms, persistent pain, possible need for further surgery and the risks associated with regional blocks and anesthesia. The plan is to take the patient to the operating room sometime in the next few weeks for the following procedures: 1. Right carpal tunnel release, under local All of the preoperative paperwork including the consent was reviewed today. All the patient's questions were answered. The patient understands that they will be contacted by our medical appointment scheduler soon to schedule this procedure She denies Diabetes, blood thinners, asthma, heart, lung, kidney issues She has a hx of Polyarthralgia 2. Right cubital tunnel syndrome, mild No complaints today 3. Right lateral epicondylitis Mild pain with activities I recommend activity modification No operative intervention warranted Scribed for Rubi Thompson MD by Kvng Burton, medical insurance collector, on 01/26/24 at 3:05 PM, EST. Coding Level of Care Code Est Pt Level 4 (02611) Diagnoses Carpal tunnel syndrome of right wrist G56.01 Cubital tunnel syndrome on right G56.21 Right lateral epicondylitis M77.11 Polyarthralgia M25.50
== END 2024-01-26 15:10 | disposition home or self-care (01) ==
PROVIDERS: PCP Internal Medicine; Visit Provider Orthopaedic Surgery
DX: G56.01 Carpal tunnel syndrome, right upper limb (principal); G56.21 Lesion of ulnar nerve, right upper limb; M77.11 Lateral epicondylitis, right elbow; M25.50 Pain in unspecified joint
CPT/HCPCS: 99214

== ENCOUNTER → 2024-01-26 14:38 | Outpatient (BNVA) | payer MEDICAID, SELFPAY | PROVIDERS: PCP Internal Medicine; Visit Provider Orthopaedic Surgery | DX: G56.01 Carpal tunnel syndrome, right upper limb (principal); G56.21 Lesion of ulnar nerve, right upper limb; M77.11 Lateral epicondylitis, right elbow; M25.50 Pain in unspecified joint | CPT/HCPCS: 99212 ==

== ENCOUNTER 2024-02-11 09:47 | Outpatient (AMB) | payer OTHER, SELFPAY ==
--- NOTE | 2024-02-11 09:48 | A.OFFPC_ITS ---
Vital Signs 02/11/24 10:32 Height 5 ft 2 in Weight 190 lb 8 oz BMI 34.8 BP 124/80 Blood Pressure Location Lt brachial Position Sitting Pulse 92 Pulse Source Pulse Oximeter Pulse Oximetry (%) 99 Oxygen Delivery Method Room Air Intake Visit Reasons: Annual Exam Relief Charge Nurse Required: No Accompanied by: Self / Same As Patient Allergies Latex, Natural Rubber [LATEX, NATURAL RUBBER] Allergy (Intermediate, Verified 02/11/24 10:16) RASH Medication List - Last Reconciled 02/11/24 by Zari Clemons MD amitriptyline 25 mg PO BEDTIME 90 days cholecalciferol (vitamin D3) 50 mcg PO DAILY 90 days cyclobenzaprine 10 mg PO BEDTIME PRN 90 days diclofenac sodium 75 mg PO BID 10 days hydrochlorothiazide 12.5 mg PO DAILY nystatin 1 appl topical BID 7 days pantoprazole 40 mg PO DAILY pyridoxine (vitamin B6) 100 mg PO DAILY 90 days sennosides (Natural Senna Laxative) 8.6 mg PO BEDTIME PRN sumatriptan succinate (Imitrex) 100 mg PO DAILY PRN 90 days topiramate 25 mg PO DAILY [wrist splint wear nightly & as much as possible throughout the day] Tobacco use date assessed: 02/11/24 Dental Screening Dental Screen Date: 02/11/24 Did you have a dental visit in the last 12 months?: Yes Did you have a dental problem in the last 6 months where you did not have access to dental care?: No Was dental information given to patient?: Patient has dentist HPI HPI Comments History of Present Illness Details The patient is a 53-year-old female presentingfor her physical exam. She describes an episode of severe discomfort that made movement difficult, likening the sensation to being pricked with needles. This issue arose after careful exertion, as she is aware of an underlying predisposition against strenuous activities. The pain has persisted despite her cautious behavior, with an episode being particularly memorable yesterday. There is no additional detail on onset or progression discussed during the encounter. She also has skin lesion in left leg that has been present for a month and is pruritic and will be refer to dermatology. Regarding past surgical history, she has undergone bladder suspension, ligation, and ligature, but no complications related to these procedures were discussed. Medication-related kidney stone formation was noted in her history, necessitating discontinuation of the causative medication, although no additional details were provided regarding the medication or current management. - Mammogram: Last performed in February o f the previous year, with an appointment scheduled for repeat imaging in February this year. - Tetanus-Diphtheria (Td) Vaccine: Last received in 2015, next due in 2025. - Recommended Colonoscopy: Scheduled for 2026. - Pap smear done 2021 and was HPV negati ve. [facility] Medical History History of abnormal cervical Pap smear Essential hypertension Lumbar pain Mild recurrent major depression Obesity (BMI 30-39.9) Polyarthralgia Urge urinary incontinence Migraines Leukocytosis Depression Renal calculi Surgical History Hx of cystoscopy History of colonoscopy History of surgery Hx of tubal ligation Hx of laparoscopy Hx of lithotripsy Family History Mother Hx of diabetes mellitus Maternal Grandfather Family hx of prostate cancer Paternal Uncle Family hx of prostate cancer History of skin cancer Sister No problems noted. Paternal Uncle Prostate cancer Maternal Aunt Seizure Father Oxygen dependent Social History Household Members: Children Housing: House Are you a primary tire care manager to a significant other at home: No Do you presently have visiting nurse or other home services: No Alcohol intake: never Comment: sleeping Patient Tobacco Use Status: Never used Tobacco e-Cigarette/Vaping Use: Never Used Second Hand Smoke Exposure: No service: No Current occupational status: employed Current occupation: works at [employer] in the [employer] Current occupational exposures/hazards: No Cognitive needs: No Hearing needs: No Vision needs: No Female Reproductive History Menstrual Age of Menarche: 14 Questionnaire PHQ-9 Over the last 2 weeks, how often have you been bothered by any of the following problems? 1. Little interest or pleasure in doing things: not at all 2. Feeling down, depressed, or hopeless: not at all 3. Trouble falling or staying asleep, or sleeping too much: not at all 4. Feeling tired or having little energy: not at all 5. Poor appetite or overeating: not at all 6. Feeling bad about yourself - or that you are a failure or have let yourself or your family down: not at all 7. Trouble concentrating on things, such as reading the newspaper or watching television: not at all 8. Moving or speaking so slowly that other people could have noticed. Or the opposite - being so fidgety or restless that you have been moving around a lot more than usual: not at all 9. Thoughts that you would be better off or of hurting yourself in some way: not at all Total score: 0 Depression Screening Interpretation: Negative Depression Screening Done: Yes 38983 - PHQ-9 Billing: Yes Source: Developed by Drs. Riaz Cody, Felipa Stroud, Jan Mckeon and colleagues, with an educational bishop from [employer]. Thrive Questionnaire Date Thrive assessed: 02/11/24 I am a: Patient What is your living situation today?: I choose not to answer this question Within the past 12 months, did the food you bought not last and you didn't have the money to get more?: I choose not to answer this question Within the past 12 months, did you worry whether your food would run out before you got money to buy more?: I choose not to answer this question Do you have trouble paying for medicines?: I choose not to answer this question Do you have trouble getting transportation to medical appointments?: No Do you have trouble paying your heating and electricity bill?: I choose not to answer this question Do you have trouble taking care of your child, family member or friend?: No Do you have trouble with day-to-day activities such as bathing, preparing meals, shopping, managing finances, etc.?: No Are you currently unemployed and looking for a job?: I choose not to answer this question Are you interested in more education?: Yes Please select the resources that you would like help with: None Currently or been in a relationship where the following occur: I choose not to answer THRIVE Score: 0 AUDIT C Alcohol Use Questionnaire (AUDIT-C) 1. How often do you have a drink containing alcohol?: Never 3. How often do you have six or more drinks on one occasion?: Never Total Score: 0 EFRA-7 AMB Questionnaire EFRA-7 Date EFRA - 7 assessed: 02/11/24 Feeling nervous, anxious, or on edge: 0 = Not at all Not being able to stop or control worryin = Not at all Worrying too much about different things: 0 = Not at all Trouble relaxin = Not at all Being so restless that it is hard to sit still: 0 = Not at all Becoming easily annoyed or irritable: 0 = Not at all Feeling afraid as if something awful might happen: 0 = Not at all Total EFRA-7 score (0-4 normal; 5-9 mild; 10-14 moderate; 15-21 severe): 0 Source: Developed by Drs. Riaz Cody, Felipa Stroud, Jan Mckeon and colleagues, with an educational bishop from [employer]. EFRA-7 Assessment Billing EFRA-7 Assessment Tool: EFRA-7 Assessment 77654 Review of Systems Const Details: - Musculoskeletal: Reports lower back pain described as sharp and needle-like, with awareness of being prone to the condition. - Genitourinary: Denies current kidney stone issues but has a past history of medication-related stone formation. Physical exam (Primary Care) Vital Signs: Last Vital Signs Pulse 92 02/11/24 10:32 BP 124/80 02/11/24 10:32 Pulse Ox 99 02/11/24 10:32 Oxygen Delivery Method Room Air 02/11/24 10:32 BMI result Body Mass Index 34.8 BMI Assessment/Plan discussion: High BMI High, discussed plan: lifestyle, weight reduction, dietary and physical activity Tobacco/Smoking Status: Tobacco use Status Tobacco use date assessed 02/11/24 02/11/24 10:04 Patient Tobacco Use Status Never used Tobacco 02/11/24 09:48 Tobacco use type 11/03/23 15:07 e-Cigarette/Vaping Use Never Used 02/11/24 09:48 PHQ-9: PHQ-9 Score PHQ-9: Total score 0 02/11/24 10:31 Depression Screening Interpretation: Negative Thrive Assessment: Date of Thrive Assessment Date Thrive assessed 02/11/24 02/11/24 09:56 Currently or been in a relationship where the following occur: I choose not to answer Const Other: General: Cooperative, healthy appearing, comfortable, no acute distress and well developed Orientation: Patient oriented x3 Limitations: No limitations Head: Normal to inspection Ears: Hearing grossly normal bilaterally Nose: Normal external nose present Face and sinus: Normal facial exam Eyes: Appearance normal, both eyes and all related structures Neck: Normal visual inspection and Yes full ROM Respiratory: Normal respiratory effort and able to speak in complete sentences. Clear to auscultation bilaterally Cardiovascular: Regular rate and rhythm. Normal S1 and S2 GI: Normal to inspection. Soft to palpation and nontender Skin: Skin lesions noted, but patient mentioned a persistent issue for more than a month, referral to dermatology recommended Neuro: Patient oriented x3 Extremities: Normal to inspection Office Procedures Flu Questionnaire Does the patient have a severe egg allergy?: No Immunizations Fluarix Triv [id number] (PF) 45 mcg (15 mcg x 3)/0.5 mL IM syringe Performing Provider: Zari Clemons MD [place] [place] [facility] Documented (not given) by: EVA Noble on 02/11/24 10:01 Reason Not Given: Patient Refused Coding Level of Care Code Est Pt Level 3 (15238) Est Pt Prev Care 40-64y(22293) Diagnoses Physical exam Z00.00 Skin lesion L98.9 Additional Codes EFRA-7 Assessment Billing - EFRA-7 Assessment Tool: EFRA-7 Assessment 06323 ([id number]) PHQ-9 - 55159 - PHQ-9 Billing: Yes ([id number]) Time Spent (min) 32 Assessment & Plan Assessment & Plan (1) Physical exam: Code(s): Z00.00 - Encounter for general adult medical examination without abnormal findings Category: Medical (2) Skin lesion: Code(s): L98.9 - Disorder of the skin and subcutaneous tissue, unspecified Category: Medical Plan - Refer to dermatology for evaluation of unspecified dermatological concerns, with possible biopsy. - Continue planned health maintenance screenings, ensuring follow-through with the scheduled mammogram. - Monitor and schedule follow-up as needed for the management of lower back pain. - Reinforce the necessity of taking care in physical movements to prevent exacerbation of back pain. Patient was informed and verbally consented to the use of an ambient scribe for clinic note documentation during this visit. During the patient's visit, we discussed her ongoing management and maintenance health plan, emphasizing the importance of adhering to scheduled screenings such as mammography and maintaining up-to-date tetanus vaccination status. I noted her current affliction with lower back pain and acknowledged the difficulty tied to movement. The patient described specific instances of pain and her cautious approach to movement, which I affirmed as appropriate given her predisposition to back issues. Plans for referring to dermatology for a skin evaluation were made due to persistent issues that necessitate a professional assessment and possible biopsy to ensure any underlying condition is properly diagnosed and addressed. Orders: Orders Influenza [id number] Immunization Today Z23 - Encounter for immunization Vitamin D 25-OH Total Today E55.9 - Vitamin D deficiency, unspecified Comprehensive [place]. Panel Fast Today Z00.00 - Encounter for general adult medical examination without abnormal findings Lipid Panel Today E78.5 - Hyperlipidemia, unspecified Referrals Dermatology Referral L98.9 - Disorder of the skin and subcutaneous tissue, unspecified Patient Instructions: - Follow through with the scheduled mammogram appointment. - Be cautious with movements to prevent exacerbation of lower back pain. - Schedule and attend a dermatology appointment for further assessment as directed. - Continue monitoring for signs of kidney stones and adhere to any previous urology recommendations.
[2024-02-11 10:32] VITALS: BP 124/80; PULSE 92; O2SAT 99; BMI 34.8
== END 2024-02-11 10:34 | disposition home or self-care (01) ==
PROVIDERS: PCP Internal Medicine; Visit Provider Internal Medicine
DX: Z00.00 Encounter for general adult medical examination without abnormal findings (principal); L98.9 Disorder of the skin and subcutaneous tissue, unspecified; Z23 Encounter for immunization

== ENCOUNTER 2024-02-11 09:47 | Outpatient (REF) | payer OTHER, SELFPAY ==
[2024-02-11 12:08] LABS: Alanine Aminotransferase 31 U/L (0-31); Albumin Level 4.5 g/dL (3.5-5.0); Alkaline Phosphatase 88 U/L (39-117); Anion Gap 12 (12-20); Aspartate Amino Transferase 33 U/L (5-31); Bilirubin Total 0.6 mg/dL (0.0-1.0); Blood Urea Nitrogen 15 mg/dL (9-16); Calcium 9.3 mg/dL (8.4-10.2); Carbon Dioxide 26 mmol/L (22-29); Chloride 106 mmol/L (96-108); Cholesterol 211 mg/dL (<200); Estimated Glomerular Filt Rate > 60; Glucose Fasting 76 mg/dL (60-99); HDL Cholesterol 47 mg/dL (>40); LDL Cholesterol Calculated 146 mg/dL (<100); Potassium 4.2 mmol/L (3.3-5.1); Sodium 140 mmol/L (135-145); Triglycerides 91 mg/dL (<150)
[2024-02-11 12:10] LABS: Vitamin D 25-OH Total 21.2 ng/mL (>30)
== END 2024-02-11 09:48 | disposition home or self-care (01) ==
LOC: HO.LAB 09:47
PROVIDERS: PCP Internal Medicine; Visit Provider Internal Medicine
DX: Z00.00 Encounter for general adult medical examination without abnormal findings (principal); E78.5 Hyperlipidemia, unspecified; E55.9 Vitamin D deficiency, unspecified; L98.9 Disorder of the skin and subcutaneous tissue, unspecified
CPT/HCPCS: 36415; 80053; 80061; 82306; 96127; 99212; 99396

== ENCOUNTER 2024-02-25 13:35 | Outpatient (REF) | payer OTHER, SELFPAY | END 2024-02-25 13:36 | disposition home or self-care (01) | LOC: HO.MAMMO 13:35 | PROVIDERS: PCP Internal Medicine; Visit Provider Internal Medicine | DX: Z12.31 Encounter for screening mammogram for malignant neoplasm of breast (principal) | CPT/HCPCS: 77063; 77067 ==

== ENCOUNTER 2024-03-05 11:54 | Emergency (ER) | payer OTHER, SELFPAY ==
[2024-03-05 12:00] VITALS: BP 142/72; PULSE 85; RESP 16; TEMP 36.3; O2SAT 100; BMI 34.0
--- NOTE | 2024-03-05 12:05 | ED_ITS ---
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 Feldman HPI Narrative: 54-year-old female came in for evaluation of left upper eyelid swelling and tenderness with redness of the left eye, patient woke up this morning with sticky eye,+ left eye discharge, and redness. No visual change, patient had a history of infected stye try to use the same medicine she used in the past with no improvement. No fever, no chills, no headache, no runny nose, no sinus pressure or pain. Related Data Home Medications ?Medication ?Instructions ?Recorded ?Confirmed hydrochlorothiazide 12.5 mg tablet 12.5 mg PO DAILY 04/04/21 02/11/24 sennosides 8.6 mg tablet (Natural 8.6 mg PO BEDTIME PRN constipation 01/22/23 02/11/24 Senna Laxative) Previous Rx's ?Medication ?Instructions ?Recorded pantoprazole 40 mg tablet,delayed 40 mg PO DAILY #90 tabs 07/04/21 release sumatriptan succinate 100 mg 100 mg PO DAILY PRN Headache 90 03/18/22 tablet (Imitrex) days #27 tabs wrist splint #1 ea 11/18/22 pyridoxine (vitamin B6) 100 mg 100 mg PO DAILY 90 days #90 tabs 12/10/22 tablet cholecalciferol (vitamin D3) 50 50 mcg PO DAILY 90 days #90 caps 05/19/23 mcg (2,000 unit) capsule amitriptyline 25 mg tablet 25 mg PO BEDTIME 90 days #90 tabs 05/31/23 cyclobenzaprine 10 mg tablet 10 mg PO BEDTIME PRN muscle spasm 07/07/23 90 days #90 tabs nystatin 100,000 unit/gram topical 1 appl topical BID 7 days #15 grams 07/07/23 cream diclofenac sodium 75 mg 75 mg PO BID pain 10 days #20 tabs 11/03/23 tablet,delayed release erythromycin 5 mg/gram (0.5 %) eye 0.5 inch ophthalmic (eye) QID #3.5 03/05/24 ointment grams Allergies Allergy/AdvReac Type Severity Reaction Status Date / Time Latex, Natural Rubber Allergy Intermediate RASH Verified 03/05/24 12:04 [LATEX, NATURAL RUBBER] Review of Systems Review of Systems: All other systems are reviewed and are negative Constitutional: Reports as per HPI and Reports no additional constitutional complaints Eyes: Reports as per HPI and Reports no additional eye complaints Reports system reviewed and no additional complaints, except as documented Cardiovascular: Reports as per HPI and Reports no additional cardiovascular complaints Respiratory: Reports as per HPI and Reports no additional respiratory complaints Gastrointestinal: Reports as per HPI and Reports no additional gastrointestinal complaints Genitourinary: Reports no additional female genitourinary complaints Musculoskeletal: Reports no additional musculoskeletal complaints Skin/Breast: Reports system reviewed and no additional complaints, except as docu Psychiatric: Reports no additional psychiatric complaints Endocrine: Reports no additional endocrine complaints Hematologic/Lymphatic: Reports no additional hematologic/lymphatic complaints Allergic/Immunologic: Reports no additional allergic/immunologic complaints Reports system reviewed and no additional complaints, except as documented and Reports Abnormal speech present PMFSH Past Medical History Medical History History of abnormal cervical Pap smear Essential hypertension Lumbar pain Mild recurrent major depression Obesity (BMI 30-39.9) Polyarthralgia Urge urinary incontinence Migraines Leukocytosis Depression Renal calculi Surgical History Hx of cystoscopy History of colonoscopy History of surgery Hx of tubal ligation Hx of laparoscopy Hx of lithotripsy Family History Family History Mother Hx of diabetes mellitus Maternal Grandfather Family hx of prostate cancer Paternal Uncle Family hx of prostate cancer History of skin cancer Sister No problems noted. Paternal Uncle Prostate cancer Maternal Aunt Seizure Father Oxygen dependent Social History Social History Household Members: Children Housing: House Are you a primary career services coordinator to a significant other at home: No Do you presently have visiting nurse or other home services: No Alcohol intake: never Comment: sleeping Patient Tobacco Use Status: Never used Tobacco e-Cigarette/Vaping Use: Never Used Second Hand Smoke Exposure: No Advance Directives: No Advance Directives Information Provided: No Do you have a plan to hurt others: No Plan service: No Current occupational status: employed 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 Blood pressure elevated. Heart rate normal. Respiratory rate normal. Temperature normal. O xygen saturation normal. Appearance: Alert. Oriented X3. No acute distress. Head: Normal external exam. Normocephalic. Atraumatic. No Garcia signs noted. No raccoon eyes noted Eyes: V/A 20/50 left eye, 20/30 right. General: appearance normal, both eyes and all related structures Visual Casey: normal visual casey by confrontation Alignment and Position: alignment normal and position normal Periorbital: periorbital findings normal Eyelids: Hordeolum to the lateral 1/3 of the upper eyelid Conjunctivae: Conjunctiva injection. Sclerae: sclerae normal Corneas: corneas normal without fluorescein uptake. Pupils: Equal, round and reactive pupils present and Pupil accommodation reflex normal EOM: EOM abnormal (Limited abduction of right eye) and No Nystagmus present Direct Ophthalmoscopy: normal light reflex, no photophobia, no papilledema and fundi normal bilaterally. IOP right 15, left 18. ENT: TM's Normal. Pharynx normal. Uvula midline. Moist mucous membranes. No trismus noted. No drooling noted. No muffled voice noted. No frontal/maxillary sinus tenderness on percussion. Neck: Normal inspection. Neck supple. FROM. No adenopathy. Thyroid Normal. No meningeal signs. No neck mass noted. CVS: Normal heart rate and rhythm. Heart sound normal. No murmurs noted. Pulses normal throughout. Respiratory: No respiratory distress. Painless inspiration. Breath sounds normal. No wheezes/rales/rhonchi noted. Chest nontender. No accessory muscle usage noted or decreased air movement noted. Abdomen: Soft and nontender. Bowel sounds normal in all 4 quadrants. No distention noted. No organomegaly noted. No visible injury noted. Back: No CVA tenderness. Full range of motion noted. Skin: Skin warm and dry. Normal skin color. Normal skin turgor. No rashes/lesions/lacerations noted. Extremities: No lower extremity edema. Extremities exhibit normal range of motion. Extremities nontender. Neuro: Oriented X 3. Cranial nerve exam: II-XII are grossly intact No motor deficit. No sensory deficit. Reflexes normal. Course Course Course Narrative: This is a rapid medical exam. deferred additional HPI, ROS, PE to primary provider. 54 yo female with no medical history here with complaints of left eye redness/swelling and discomfort as well as around the eye. Uses reading glasses only Right eye 20/30 Left eye 20/50 in triage Will need more detailed eye exam d/t discrepancy VSS -A. 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 Erythromycin eye ointment. Time: 20:21 Medications Administered Discontinued Medications Generic Name Dose Route Start Last Admin Trade Name Rickyq PRN Reason Stop Dose Admin Fluorescein Sodium 1 strip 03/05/24 19:47 03/05/24 19:57 Fluorescein Sodium Strip EYE-BOTH 03/05/24 19:48 1 strip ONCE ONE Administration Tetracaine HCl 1 drop 03/05/24 19:52 03/05/24 19:57 Tetracaine Hcl/Pf 0.5% Oph Adamaris 4 Ml Drops EYE-BOTH 03/05/24 19:53 1 drop ONCE ONE Administration Medical Decision Making Differential Diagnosis Differential Diagnoses: The differential diagnosis associated with the presentation includes (Blepharitis, infected stye, conjunctivitis, closed angle glaucoma, corneal abrasion/ulcer.) Admission/Observation Consideration of admission/observation: Escalation of care including admission/observation considered Discharge Plan Discharge Clinical Impression: Periorbital cellulitis of left eye, Hordeolum external Patient Disposition: Home, Self-Care Instructions: Kishore (ED) Additional Instructions: Apply warm compression to your left eye. Apply half-inch ribbon of the antibiotic ointment under the upper eyelid 4 times a day. Call your eye doctor and make an appointment. Prescriptions: New erythromycin 5 mg/gram (0.5 %) ointment 0.5 inch ophthalmic (eye) QID Qty: 3.5 0RF No Action sumatriptan succinate [Imitrex] 100 mg tablet 100 mg PO DAILY PRN (Reason: Headache) 90 Days Qty: 27 3RF cholecalciferol (vitamin D3) 50 mcg (2,000 unit) capsule 50 mcg PO DAILY 90 Days Qty: 90 1RF amitriptyline 25 mg tablet 25 mg PO BEDTIME 90 Days Qty: 90 3RF cyclobenzaprine 10 mg tablet 10 mg PO BEDTIME PRN (Reason: muscle spasm) 90 Days Qty: 90 2RF nystatin 100,000 unit/gram cream 1 appl topical BID 7 Days Qty: 15 2RF sennosides [Natural Senna Laxative] 8.6 mg tablet 8.6 mg PO BEDTIME PRN (Reason: constipation) hydrochlorothiazide 12.5 mg tablet 12.5 mg PO DAILY pyridoxine (vitamin B6) 100 mg tablet 100 mg PO DAILY 90 Days Qty: 90 3RF pantoprazole 40 mg tablet,delayed release (DR/EC) 40 mg PO DAILY Qty: 90 2RF Rx Instructions: take one tablet half an hour before breakfast (DME) wrist splint See Rx Instructions .Route .MEDSUPPLY Qty: 1 0RF Rx Instructions: wear nightly & as much as possible throughout the day diclofenac sodium 75 mg tablet,delayed release (DR/EC) 75 mg PO BID 10 Days Qty: 20 0RF Referrals: Zari Al MD [Primary Care Provider] - Print Language: Burundian
[2024-03-05 19:30] VITALS: BP 127/65; PULSE 88; RESP 16; TEMP 36.6; O2SAT 99
--- OUTSIDE RECORDS SUMMARY | 2024-03-05 19:46 | XMS_ITS | Clinical Summary ---
Author Organization [facility] Address [address] [address] Phone Care Team Providers Care Acid Maker Name Role Phone Guevara Shah MD Primary Care Provider [phone] Allergies No known active allergies Medications amitriptyline (ELAVIL) 25 MG tablet Take 1 tablet by mouth every night 1 Active nabumetone (RELAFEN) 750 MG tablet Take 1 tablet by mouth 2 (two) times a day if needed 1 Active oxybutynin XL (DITROPAN-XL) 10 MG 24 hr tablet Take 1 tablet by mouth 2 (two) times a day Active pyridoxine (B-6) 100 MG tablet Take 100 mg by mouth 1 (one) time each day Active SUMAtriptan (IMITREX) 100 MG tablet Take 1 tablet by mouth if needed 1 Active buPROPion XL (WELLBUTRIN XL) 150 MG 24 hr tablet Take 1 tablet by mouth 1 (one) time each day 2 Active pantoprazole (PROTONIX) 40 MG EC tablet Take 1 tablet by mouth 1 (one) time each day 2 Active hydroCHLOROthia zide 12.5 MG tablet Take 1 tablet (12.5 mg total) by mouth 1 (one) time each day 90 tablet 3 2 Active cyclobenzaprine (FLEXERIL) 10 MG tablet TOME JOSE TABLETA TODOS LOS D AL ACOSTARSE PARA EL ESPASMO MUSCULAR CUANDO SEA NECESARIO 2 Active Active Problems Problem Noted Date Diagnosed Date Blood in urine 07/10/2020 Renal stone 07/10/2020 Family History Medical History Relation Comments Diabetes Father Heart disease Father Hypertension Father Cancer Father's Brother Cancer Maternal Grandfather Diabetes Mother Relation Status Comments Father Father's Brother Maternal Grandfather Mother Alive Social History Tobacco Use Types Packs/Day Years Used Date Smoking Tobacco: Never Smokeless Tobacco: Never Tobacco Cessation:Counseling Given: No Alcohol Use Standard Drinks/Week Comments No 0 (1 standard drink = 0.6 oz pur e alcohol) Comments Unknown Sex and Gender Information Value Date Recorded Sex Assigned at Not on file Legal Sex Female 5:10 PM EST Gender Identity Not on file Sexual Orientation Not on file Last Filed Vital Signs Vital Sign Reading Time Taken Comments Blood Pressure 129/65 11/13/2022 10:13 AM EDT Pulse 85 11/13/2022 10:13 AM EDT Temperature - - Respiratory Rate - - Oxygen Saturation 98% 11/13/2022 10:13 AM EDT Inhaled Oxygen Concentration - - Weight 89.4 kg (197 lb) 12/24/2021 12:57 PM EST Height - - Body Mass Index - - Plan of Treatment Upcoming Encounters Date Type Department Care Team (Late st Contact Info) Description 06/12/2024 3:15 PM EDT Office Visit [facility] [address] [place] [address] Guevara Shah MD [address] [facility] [address] [place] [phone] Health Maintenance Due Date Last Done Comments Breast Cancer Screening 1970 Pneumococcal Vaccine: Pediat rics (0 to 5 Years) and At-Risk Patients (6 to 64 Years) (1 of 2 - PCV) 02/28/1976 Hepatitis B Vaccine (1 of 3 - 19+ 3-dose series) 02/27 Colorectal Cancer Screening: Annual FOBT 2019 Colorectal Cancer Screening: Colonoscopy 2019 Colorectal Cancer Screening: Sigmoidoscopy 2019 Influenza Vaccine (#1) [address] [place] [address] [place] [address] Care Teams Acid Maker Relationship Specialty Start Date End Date Guevara Shah MD [address] [phone] PCP - General Nephrology 11/13/22
[2024-03-05] MEDS: Tetracaine HCl/PF 0.5% Oph Sol 4 ML DROPS 1 DROP EYE-BOTH (19:57)
[2024-03-05] MEDS: Fluorescein Sodium STRIP 1 STRIP EYE-BOTH (19:57)
[2024-03-05] MEDS: Erythromycin Base 0.5% Oph Oin 1 GM TUBE 1 CM EYE-LEFT (20:25)
[2024-03-05 20:26] VITALS: BP 127/65; PULSE 88; RESP 16; TEMP 36.6; O2SAT 99
== END 2024-03-05 20:26 | disposition home or self-care (01) ==
PROVIDERS: Emergency Provider Emergency Medicine; PCP Internal Medicine
DX: L03.213 Periorbital cellulitis (principal); H00.016 Hordeolum externum left eye, unspecified eyelid; Z79.899 Other long term (current) drug therapy
CPT/HCPCS: 99283

== ENCOUNTER → 2024-03-09 14:12 | Outpatient (BNVA) | payer OTHER, SELFPAY | PROVIDERS: PCP Internal Medicine; Visit Provider Obstetrics & Gynecology | DX: Z01.419 Encounter for gynecological examination (general) (routine) without abnormal findings (principal) | CPT/HCPCS: 99396; 99459 ==

== ENCOUNTER 2024-04-07 15:15 | Outpatient (AMB) | payer OTHER, SELFPAY ==
--- NOTE | 2024-04-07 15:51 | A.OFFPC_ITS ---
Vital Signs 04/07/24 15:52 Height 5 ft 2 in Weight 182 lb 6 oz BMI 33.4 BP 110/70 Blood Pressure Location Lt brachial Position Sitting Pulse 76 Pulse Source Pulse Oximeter Temp 97.3 F Temp Source Temporal Artery Scan Pulse Oximetry (%) 98 Oxygen Delivery Method Room Air Intake Visit Reasons: Pre op 3/3 carpal tunnel release Intake Note: Patient is here for a Pre-op for Carpal Tunnel release scheduled with [facility] on 04/10/24. Workers Compensation Claims Analyst Required: Yes Workers Compensation Claims Analyst Language: Amharic Information Interpreted: non-clinical & clinical Front Tender: Not Required per policy Accompanied by: Self / Same As Patient Allergies Latex, Natural Rubber [LATEX, NATURAL RUBBER] Allergy (Intermediate, Verified 04/07/24 16:14) RASH Medication List - Last Reconciled 04/07/24 by Vera Novoa PA-C amitriptyline 25 mg PO BEDTIME 90 days cholecalciferol (vitamin D3) 50 mcg PO DAILY 90 days cyclobenzaprine 10 mg PO BEDTIME PRN 90 days diclofenac sodium 75 mg PO BID 10 days pyridoxine (vitamin B6) 100 mg PO DAILY 90 days sennosides (Natural Senna Laxative) 8.6 mg PO BEDTIME PRN sumatriptan succinate (Imitrex) 100 mg PO DAILY PRN 90 days [wrist splint wear nightly & as much as possible throughout the day] Tobacco use date assessed: 04/07/24 Dental Screening Dental Screen Date: 02/11/24 HPI Pre op 3 carpal tunnel release HPI Details 54-year-old female with past medical his tory of GERD, depression, migraines, obesity, hypertension last seen by Dr. Block 02/11/2024 coming in for preoperative exam.? Patient is scheduled to have right carpal tunnel release with Dr. Thompson 04/10/2024. Hypertension: Not currently on blood pressure treatment. Blood pressure at goal today 110/70 Patient has had surgery in the past without complication. No history of DE, CVA, CHF or DM. Patient does not take any ASA or blood thinners. She has not had any NSAIDs in the last week. reprographics associate ([id number] Shannan) was used for the duration of this visit. [facility] Medical History History of abnormal cervical Pap smear Essential hypertension Lumbar pain Mild recurrent major depression Obesity (BMI 30-39.9) Polyarthralgia Urge urinary incontinence Migraines Leukocytosis Depression Renal calculi Surgical History Hx of cystoscopy History of colonoscopy History of surgery Hx of tubal ligation Hx of laparoscopy Hx of lithotripsy Family History Mother Hx of diabetes mellitus Maternal Grandfather Family hx of prostate cancer Paternal Uncle Family hx of prostate cancer History of skin cancer Sister No problems noted. 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/ [employer] Current occupational exposures/hazards: No Cognitive needs: No Hearing needs: No Vision needs: No Female Reproductive History Menstrual Age of Menarche: 14 Questionnaire Thrive Questionnaire Date Thrive assessed: 02/09/24 I am a: Patient What is your living situation today?: I choose not to answer this question Within the past 12 months, did the food you bought not last and you didn't have the money to get more?: I choose not to answer this question Within the past 12 months, did you worry whether your food would run out before you got money to buy more?: I choose not to answer this question Do you have trouble paying for medicines?: I choose not to answer this question Do you have trouble getting transportation to medical appointments?: No Do you have trouble paying your heating and electricity bill?: I choose not to answer this question Do you have trouble taking care of your child, family member or friend?: No Do you have trouble with day-to-day activities such as bathing, preparing meals, shopping, managing finances, etc.?: No Are you currently unemployed and looking for a job?: I choose not to answer this question Are you interested in more education?: Yes Please select the resources that you would like help with: None Currently or been in a relationship where the following occur: I choose not to answer THRIVE Score: 0 EFRA-7 AMB Questionnaire EFRA-7 Date EFRA - 7 assessed: 02/11/24 Source: Developed by Drs. Riaz Cody, Felipa Stroud, Jan Mckeon and colleagues, with an educational bishop from [employer]. Review of Systems Const Denies body aches, Denies chills, Denies fever(s), Denies headache(s) and Denies poor appetite Eyes Reports no additional complaints ENT Denies dysphagia, Denies dizziness, Denies headache(s) and Denies odynophagia Card Denies chest pain, Denies syncope, Denies edema, Denies irregular heart rhythm, Denies lightheadedness and Denies dyspnea Resp Denies cough and Denies dyspnea GI Denies abdominal pain, Reports constipation (occasional ), Denies dysphagia, Denies diarrhea, Denies nausea, Denies odynophagia and Denies vomiting Reports no additional complaints Musc Reports no additional complaints and Denies abnormal gait Skin/Breast Reports system reviewed and no additional complaints, except as documented Neuro Denies abnormal gait, Denies dizziness, Denies syncope and Denies headache(s) Psych Reports no additional complaints Physical exam (Primary Care) Vital Signs: Last Vital Signs Temp 97.3 F 04/07/24 15:52 Pulse 76 04/07/24 15:52 BP 110/70 04/07/24 15:52 Pulse Ox 98 04/07/24 15:52 Oxygen Delivery Method Room Air 04/07/24 15:52 BMI result Body Mass Index 33.4 Tobacco/Smoking Status: Tobacco use Status Tobacco use date assessed 04/07/24 04/07/24 15:58 Patient Tobacco Use Status Never used Tobacco 04/07/24 15:58 Tobacco use type 11/03/23 15:07 e-Cigarette/Vaping Use Never Used 04/07/24 15:58 Thrive Assessment: Date of Thrive Assessment Date Thrive assessed 02/09/24 04/07/24 15:58 Currently or been in a relationship where the following occur: I choose not to answer Const General: cooperative, healthy appearing, comfortable and no acute distress Orientation/consciousness: patient oriented x3 HENMT Head: Yes normocephalic Ears: hearing grossly normal bilaterally General nose exam: Normal external nose present Eyes General: appearance normal, both eyes and all related structures Conjunctivae: conjunctivae normal Neck Neck: Yes full ROM and Yes no lymphadenopathy Resp Effort & Inspection: normal respiratory effort Auscultation: clear to auscultation bilaterally, no crackles, no rales, no rhonchi and no wheezes Cardio Rate: regular rate Rhythm: regular rhythm Skin General skin exam: no rashes or lesions noted Neuro General: patient oriented x3 Gait exam (Neuro): Normal gait present Extrem General: Yes normal to inspection, Yes full ROM and No edema Psych Affect: normal affect Attitude: cooperative Insight: Good insight present (Psych) Judgement: Good judgement present (Psych) Coding Level of Care Code Est Pt Level 3 (15071) Diagnoses Pre-op evaluation Z01.818 Assessment & Plan Assessment & Plan (1) Pre-op evaluation: Code(s): Z01.818 - Encounter for other preprocedural examination Category: Medical Plan: Regarding preop clearance, the patient is at low risk for proposed surgery due to age and lack of comorbidities. Blood pressure is well managed without the use of medication. Reviewed with the patient that no surgery is completely free of risk and that this examination is to assist the surgeon in reviewing informed consent. Reviewed with patient all medications may be taken like normal up until the day of the procedure avoid taking the medications on the morning of the procedure and may resume medications after procedure has been completed. Avoid NSAIDs prior to the procedure as it can contribute to risk of bleeding. Discussed with orthopedics who did not require blood work or EKG prior to procedure. No further workup needed at this time and may proceed with the contemplated procedure. Thank you very much for letting me participate in the care of this patient Plan This note was constructed using voice recognition software. While every effort has been made to ensure accuracy and haulage boss, still areas may have been included sometimes these areas may affect the content or meeting of the given symptoms. Total time spent caring for the patient today was 20 minutes. This includes time spent before the visit reviewing the chart, time spent during the visit, and time spent after the visit and documentation. Medications: Refilled cyclobenzaprine 10 mg PO BEDTIME 90 days PRN 90 tabs 2RF muscle spasm amitriptyline 25 mg PO BEDTIME 90 days 90 tabs 3RF sumatriptan succinate (Imitrex) 100 mg PO DAILY 90 days PRN 27 tabs 3RF Headache G43.909 - Migraine, unspecified, not intractable, without status migrainosus Discontinued diclofenac sodium Discontinued Reason: Patient no longer taking 75 mg PO BID 10 days 20 tabs 0RF pain
[2024-04-07 15:52] VITALS: BP 110/70; PULSE 76; TEMP 36.3; O2SAT 98; BMI 33.4
--- OUTSIDE RECORDS SUMMARY | 2024-04-07 17:21 | XMS_ITS | Clinical Summary ---
Author Organization [facility] Address [address] [facility] [address] [place] [address] Care Team Providers Care Furrier Apprentice Name Role Phone Unavailable Primary Care Provider [...]
--- OUTSIDE RECORDS SUMMARY | 2024-04-07 17:21 | XMS_ITS | Clinical Summary ---
Author Organization [facility] Address [address] [address] Phone Care Team Providers Care Element Setter Name Role Phone Guevara Shah MD Primary Care Provider [phone] Allergies No known active allergies Medications amitriptyline [...] Visit [facility] [address] [place] [address] Guevara Shah MD [address] [facility] [address] [place] [phone] Health Maintenance Due Date Last Done Comments [...] Sigmoidoscopy 2019 Influenza Vaccine (#1) [address] [place] [address] Care Teams Element Setter Relationship Specialty Start Date End Date Guevara Shah MD [address] [phone] PCP - General Nephrology 11/13/22
== END 2024-04-07 16:29 | disposition home or self-care (01) ==
PROVIDERS: PCP Internal Medicine
DX: Z01.818 Encounter for other preprocedural examination (principal)

== ENCOUNTER → 2024-04-07 15:15 | Outpatient (BNVA) | payer OTHER, SELFPAY | PROVIDERS: PCP Internal Medicine | DX: Z01.818 Encounter for other preprocedural examination (principal) | CPT/HCPCS: 99212 ==

== ENCOUNTER 2024-04-10 11:22 | Day surgery (SDC) | payer OTHER, SELFPAY ==
--- OUTSIDE RECORDS SUMMARY | 2024-04-03 17:16 | XMS_ITS | Clinical Summary ---
Author Organization [facility] Address [address] [facility] [address] [place] [address] Care Team Providers Care Medical Office Assistant Instructor Name Role Phone Unavailable Primary Care Provider Unavailabl e Allergies Active Allergy Reactions Criticality Noted Date Comments Latex 01/15/2023 Medications amitriptyline (Elavil) 25 MG tablet TOME JOSE TABLETA POR V A ORAL AL ACOSTARSE FOR 90 DAYS 3 Active nabumetone (Relafen) 750 MG tablet TOME JOSE TABLETA POR V A ORAL DOS VECES AL D A CUANDO SEA NECESARIO FOR PAIN 4 TO 6 ON PAIN SCALE 3 Active pyridoxine (Vitamin B-6) 100 MG tablet TOME JOSE TABLETA TODOS LOS D 3 Active pantoprazole (ProtoNix) 40 MG EC tablet Take 1 tablet by mouth. 2 Active cyclobenzaprine (Flexeril) 10 MG tablet TOME JOSE TABLETA TODOS LOS D AL ACOSTARSE PARA EL ESPASMO MUSCULAR CUANDO SEA NECESARIO 3 Active SUMAtriptan (Imitrex) 100 MG tablet Take 1 tablet by mouth. 1 Active Social History Tobacco Use Types Packs/Day Years Used Date Smoking Tobacco: Never Assessed Comments Unknown Sex and Gender Information Value Date Recorded Sex Assigned at Female 12/25/2022 9:33 AM EST Legal Sex Female 1:22 PM EDT Gender Identity Female 12/25/2022 9:33 AM EST Sexual Orientation Straight 12/25/2022 9: 33 AM EST Plan of Treatment Health Maintenance Due Date Last Done Comments CT Colonography 1970 Colonoscopy 1970 Colorectal Cancer Screening 1970 Dental Oral Exam 1970 Dental Prophylaxis 1970 Dental X-Ray: Full Mouth 1970 Depression Screening 1970 FIT DNA/Cologuard 1970 FIT 1970 FOBT 1970 HIV Screening 1970 SDOH Screening 1970 Sigmoidoscopy 1970 Alcohol/Substance Use Screening 1982 Tobacco Screening 1982 Hepatitis C Screening 02/28/1988 DTaP/Tdap/Td Vaccines (1 - Tdap) 1989 Hepatitis B Vaccines (1 of 3 - 19+ 3-dose series) 1989 Pap Smear 1991 Cervical Cancer Screening 02/28/2000 HPV/Cotest 02/28/2000 Mammogram 2010 Pneumococcal Vaccine: 50+ Years (1 of 1 - PCV) 02/28/2020 Zoster Vaccines (1 of 2) 02/28/2020 COVID-19 Vaccine ( - 2023-2 5 season) 2023 Influenza Vaccine (#1) 2023 Dental X-Ray: Bitewings 01/17/2024 01/16/20 23, 01/15/2023 RSV Patients and Patients Aged 60 years or older (1 - 1-dose 75+ series) 2045 HIB Vaccines Aged Out No longer eligi ble based on patient's age to complete this topic HPV Vaccines Aged Out No longer eligi ble based on patient's age to complete this topic Hepatitis A Vaccines Aged Out No long er eligible based on patient's age to complete this topic IPV Vaccines Aged Out No longer eligi ble based on patient's age to complete this topic Meningococcal Vaccine Aged Out No chelle corrina eligible based on patient's age to complete this topic RSV under 20 months Aged Out No longe r eligible based on patient's age to complete this topic Rotavirus Vaccines Aged Out No longer eligible based on patient's age to complete this topic Procedures Procedure Name Priority Date/Time Associated Diagnosis Comments BITEWING - SINGLE RADIOGRAPHIC IMAGE Routine 01/15/2023 11:00 AM EST from Last 3 Months or Most Recently Relevant to Health Maintenance Insurance DENTAL - HSN FULL (MEDICAID)
--- OUTSIDE RECORDS SUMMARY | 2024-04-03 17:16 | XMS_ITS | Clinical Summary ---
Author Organization [facility] Address [address] [address] Phone Care Team Providers Care Director Of User Experience Name Role Phone Guevara Shah MD Primary Care Provider [phone] Allergies No known active allergies Medications amitriptyline [...] Visit [facility] [address] [place] [address] Guevaar Shah MD [address] [facility] [address] [place] [phone] Health Maintenance Due Date Last Done Comments [...] Sigmoidoscopy 2019 Influenza Vaccine (#1) [address] [place] [address] Care Teams Director Of User Experience Relationship Specialty Start Date End Date Guevara Shah MD [address] [phone] PCP - General Nephrology 11/13/22
[2024-04-10 12:02] VITALS: BMI 33.3
[2024-04-10 12:07] VITALS: BP 118/54; PULSE 71; RESP 16; TEMP 36.2; O2SAT 98
--- NOTE | 2024-04-10 14:54 | MHC.SHP ---
Pre-Procedural Eval Section A - 24 Hr Update-Section A only Date of Service: 04/10/24 The patient is an INPATIENT: No Changes since office visit: No Cold of Flu in the past 2 weeks, No New Medical Problems, No Changes in Medication and No Patient answered all questions The patient has been examined within 24 hours of the surgical procedure. The History & Physical has been completed within 30 days and I have reviewed it.: Yes Section B - Complete if H&P > 30 days Chief Complaint: Carpal tunnel syndrome, right upper limb Allergies: Allergies Allergy/AdvReac Type Severity Reaction Status Date / Time Latex, Natural Rubber Allergy Intermediate RASH Verified 04/07/24 16:14 [LATEX, NATURAL RUBBER] Plan Diagnosis/Plan: Unchanged I have reviewed the history and physical and performed a pertinent physical examination on my patient. No changes have occurred unless specified. Time Spent With Patient Time: Total time managing care of this patient today ____ minutes.
--- NOTE | 2024-04-10 14:55 | P.OP_ITS ---
Operative Note Operative Note Date of Service: 04/10/24 Narrative: Preop diagnosis: 1. Right Carpal tunnel syndrome Postop diagnosis: same Procedure: 1. Right Carpal tunnel release Surgeon: Rubi Thompson MD Infrastructure Administrator: None Anesthesia: local block using 1% lidocaine with epinephrine Findings: Thickened transverse carpal ligament. EBL: Less than 5 mL Specimens: None Complications: None Disposition: Brought to recovery room in stable condition Plan: Follow-up for 10-14 days for wound check and suture removal Indications: The patient is 54 years old, with right carpal tunnel syndrome that has been unresponsive to nonoperative management. The risks and benefits of operative treatment including but not limited to risk of damage to blood vessels, nerves, tendons, infection, persistent pain, persistent symptoms, or possible need for additional surgery were discussed with the patient and the patient wishes to proceed with surgery. Procedure: Once consent was obtained a local block was performed using a combination of 1% lidocaine with epinephrine. The patient was then brought back to the operating suite and placed on the operative table in supine position. The right upper extremity was prepped and draped in a standard surgical fashion. Once assured that we had a good block, a 2.0 cm longitudinal incision was made centered over the carpal tunnel. The incision was made through the skin to the subcutaneous tissues using a #15 blade. Dissection was made down to the level of the transverse carpal ligament with care being taken to protect the palmar cutaneous nerve. Once the transverse carpal ligament was clearly visualized, a longitudinal incision was made in the transverse carpal ligament 1st using a #15 blade, then using tenotomy scissors under direct visualization. Care was taken to look for and protect the motor branch of the median nerve when seen in this area. Once satisfied with our carpal tunnel release the wound was copiously irrigated with normal saline and hemostasis was obtained with a brief period of local pressure. The skin edges were reapproximated with some 5.0 nylon suture material and a sterile dressing was applied. The patient appears to have tolerated the procedure well and with no complic ations. All digits were well vascularized at the conclusion of the case.
[2024-04-10 15:33] VITALS: BP 130/74; PULSE 73; RESP 18; O2SAT 100
== END 2024-04-10 15:35 | disposition home or self-care (01) ==
PROVIDERS: PCP Internal Medicine; Visit Provider Orthopaedic Surgery
PROC: (CPT 64721; principal; 2024-04-10 13:20)
DX: G56.01 Carpal tunnel syndrome, right upper limb (principal); R20.0 Anesthesia of skin; M25.521 Pain in right elbow; M77.11 Lateral epicondylitis, right elbow; I10 Essential (primary) hypertension; D72.829 Elevated white blood cell count, unspecified; G43.909 Migraine, unspecified, not intractable, without status migrainosus; F33.0 Major depressive disorder, recurrent, mild; Z87.442 Personal history of urinary calculi; Z91.040 Latex allergy status; Z98.890 Other specified postprocedural states
CPT/HCPCS: 64721; J0171; J2003

== ENCOUNTER → 2024-04-10 11:22 | Outpatient (BNV) | payer OTHER, SELFPAY | PROVIDERS: PCP Internal Medicine; Visit Provider Orthopaedic Surgery | DX: G56.01 Carpal tunnel syndrome, right upper limb (principal) | CPT/HCPCS: 64721 ==

== ENCOUNTER 2024-04-24 09:34 | Outpatient (AMB) | payer OTHER, SELFPAY ==
--- NOTE | 2024-04-24 09:37 | A.OFFVIS_ITS ---
Vital Signs 04/24/24 09:38 Height 5 ft 2 in Weight 182 lb BMI 33.3 Intake Visit Reasons: PO-Rt CTR 04/10/24 Intake Note: Riana is a 54 year old right hand dominant female who presents today for a post operative visit s/p right carpal tunnel release DOS: 04/10/24 w/ Dr Thompson. States her CTS have resolved and is doing well. Sutures removed and steri strips applied at today's visit. Allergies Latex, Natural Rubber [LATEX, NATURAL RUBBER] Allergy (Intermediate, Verified 04/24/24 09:48) RASH HPI HPI PO-Rt CTR 04/10/24: Details: Riana is a 54 year old right hand dominant female who presents today for a post operative visit s/p right carpal tunnel release DOS: 04/10/24 w/ Dr Thompson. States her CTS have resolved and is doing well. Sutures removed and steri strips applied at today's visit. [facility] Medical History History of abnormal cervical Pap smear Essential hypertension Lumbar pain Mild recurrent major depression Obesity (BMI 30-39.9) Polyarthralgia Urge urinary incontinence Migraines Leukocytosis Depression Renal calculi Surgical History Hx of cystoscopy History of colonoscopy History of surgery Hx of tubal ligation Hx of laparoscopy Hx of lithotripsy Family History Mother Hx of diabetes mellitus Maternal Grandfather Family hx of prostate cancer Paternal Uncle Family hx of prostate cancer History of skin cancer Sister No problems noted. Paternal Uncle Prostate cancer Maternal Aunt Seizure Father Oxygen dependent Social History Household Members: Children Housing: House Are you a primary director critical care to a significant other at home: No Do you presently have visiting nurse or other home services: No Alcohol intake: never Comment: sleeping Patient Tobacco Use Status: Never used Tobacco e-Cigarette/Vaping Use: Never Used Second Hand Smoke Exposure: No service: No Current occupational status: employed Current occupation: works at [employer] in the [employer] department/ rt hand Current occupational exposures/hazards: No Cognitive needs: No Hearing needs: No Vision needs: No Female Reproductive History Menstrual Age of Menarche: 14 Review of Systems Const All systems reviewed & are unremarkable except as noted in HPI and below Physical Exam Vital Signs: BMI result Body Mass Index 33.3 Extrem Other: Patient is alert, oriented, and in no acute distress. Neuro: Normal sensation of the tips of all digits of the right hand at this time Vascular: Cap refill brisk Pain: No tenderness to palpation about the incision site on the volar right wrist Range of motion of the right hand painless ROM: Patient is able to make a closed fist and extend all digits of the right hand fully and without difficulty Skin: Well approximated and well healing incision site noted on the volar right wrist Sutures removed, Steri-Strips in place General: No ecchymosis, erythema, or evidence of infection. Psych: Appears grossly normal Affect normal Attitude cooperative Assessment & Plan Assessment & Plan (1) Carpal tunnel syndrome of right wrist: Code(s): G56.01 - Carpal tunnel syndrome, right upper limb Category: Medical Plan 1. Status post right carpal tunnel release DOS 04/10/2024 Patient appears to be recovering well postoperatively Patient is educated about the typical recovery course At this time, patient was informed that she will require no further acute follow-up with us, as she appears to be recovering very well Patient was amenable to this plan Patient will follow-up as needed with acute concerns Coding Level of Care Code Global (67876) Diagnoses Carpal tunnel syndrome of right wrist G56.01
[2024-04-24 09:38] VITALS: BMI 33.3
--- OUTSIDE RECORDS SUMMARY | 2024-04-24 10:24 | XMS_ITS | Clinical Summary ---
Author Organization [facility] Address [address] [facility] [address] [place] [address] Care Team Providers Care Tafe Teacher Name Role Phone Unavailable Primary Care Provider [...]
--- OUTSIDE RECORDS SUMMARY | 2024-04-24 10:24 | XMS_ITS | Clinical Summary ---
Author Organization [facility] Address [address] [address] Phone Care Team Providers Care Health Services Manager Name Role Phone Guevara Shah MD Primary Care Provider [phone] Allergies No known active allergies Medications amitriptyline [...] Visit [facility] [address] [place] [address] Guevara Shah MD [address] [facility] [address] [place] [id number] Health Maintenance Due Date Last Done Comments [...] Sigmoidoscopy 2019 Influenza Vaccine (#1) [address] [place] [address] Care Teams Health Services Manager Relationship Specialty Start Date End Date Guevara Shah MD [address] [address] PCP - General Nephrology 11/13/22
== END 2024-04-24 10:00 | disposition home or self-care (01) ==
LOC: HO.HOS 09:35
PROVIDERS: PCP Internal Medicine
DX: G56.01 Carpal tunnel syndrome, right upper limb (principal)
CPT/HCPCS: 99024

== ENCOUNTER → 2024-04-24 09:34 | Outpatient (BNVA) | payer OTHER, SELFPAY | PROVIDERS: PCP Internal Medicine | DX: Z09 Encounter for follow-up examination after completed treatment for conditions other than malignant neoplasm (principal); Z86.69 Personal history of other diseases of the nervous system and sense organs; Z98.890 Other specified postprocedural states | CPT/HCPCS: 99212 ==

== ENCOUNTER 2024-06-28 09:11 | Outpatient (AMB) | payer OTHER, SELFPAY ==
--- NOTE | 2024-06-28 09:15 | A.OFFPC_ITS ---
Vital Signs 06/28/24 09:17 Height 5 ft 2 in Weight 183 lb 6 oz BMI 33.5 BP 130/70 Blood Pressure Location Lt brachial Position Sitting Pulse 84 Pulse Source Pulse Oximeter Temp 97.1 F Temp Source Temporal Artery Scan Pulse Oximetry (%) 99 Oxygen Delivery Method Room Air Intake Visit Reasons: RT ankle pain Intake Note: Patient is here to follow up on Right ankle pain. Mimeograph Operator Required: Yes Mimeograph Operator Language: Baggage Checker Name: Josie ([id number]) Information Interpreted: non-clinical & clinical Precision Inspector: Not Required per policy Accompanied by: Self / Same As Patient Allergies Latex, Natural Rubber [LATEX, NATURAL RUBBER] Allergy (Intermediate, Verified 06/28/24 10:01) RASH Medication List - Last Reconciled 06/28/24 by Vera Novoa PA-C amitriptyline 25 mg PO BEDTIME 90 days cholecalciferol (vitamin D3) 50 mcg PO DAILY 90 days cyclobenzaprine 10 mg PO BEDTIME PRN 90 days pyridoxine (vitamin B6) 100 mg PO DAILY 90 days sennosides (Natural Senna Laxative) 8.6 mg PO BEDTIME PRN sumatriptan succinate (Imitrex) 100 mg PO DAILY PRN 90 days [wrist splint wear nightly & as much as possible throughout the day] Tobacco use date assessed: 06/28/24 Dental Screening Dental Screen Date: 02/11/24 HPI RT ankle pain HPI Details 54-year-old female with past medical his tory of GERD, depression, migraines, obesity, hypertension last seen 03/2024 coming in for acute problem. renal dietitian (Liang [id number]) was used for the duration of this visit. Presenting with complaints of right ankle and bilateral knee pain. Right ankle pain started approximately two to three weeks ago, noted after the ankle gave out when using stairs; no resultant fall but an increase in discomfort. Right knee pain has persisted recurrently over five years, with exacerbation during activities such as standing from a seated position or stair climbing. Pain in both ankle and knees does not radiate and remains localized; each is perceived separately. Current medication includes Relafen 750 mg and Cyclobenzaprine, providing limited relief for musculoskeletal tension. [facility] Medical History History of abnormal cervical Pap smear Essential hypertension Lumbar pain Mild recurrent major depression Obesity (BMI 30-39.9) Polyarthralgia Urge urinary incontinence Migraines Leukocytosis Depression Renal calculi Surgical History History of carpal tunnel surgery Hx of cystoscopy History of colonoscopy History of surgery Hx of tubal ligation Hx of laparoscopy Hx of lithotripsy Family History Mother Hx of diabetes mellitus Maternal Grandfather Family hx of prostate cancer Paternal Uncle Family hx of prostate cancer History of skin cancer Sister No problems noted. Paternal Uncle Prostate cancer Maternal Aunt Seizure Father Oxygen dependent Social History Household Members: Children Housing: House Are you a primary hospice home care coordinator to a significant other at home: No Do you presently have visiting nurse or other home services: No Alcohol intake: never Comment: sleeping Patient Tobacco Use Status: Never used Tobacco e-Cigarette/Vaping Use: Never Used Second Hand Smoke Exposure: No service: No Current occupational status: employed Current occupation: works at [employer] in the [employer]/ [employer] Current occupational exposures/hazards: No Cognitive needs: No Hearing needs: No Vision needs: No Female Reproductive History Menstrual Age of Menarche: 14 Questionnaire PHQ-9 Over the last 2 weeks, how often have you been bothered by any of the following problems? 1. Little interest or pleasure in doing things: not at all 2. Feeling down, depressed, or hopeless: not at all 3. Trouble falling or staying asleep, or sleeping too much: several days 4. Feeling tired or having little energy: several days 5. Poor appetite or overeating: not at all 6. Feeling bad about yourself - or that you are a failure or have let yourself or your family down: not at all 7. Trouble concentrating on things, such as reading the newspaper or watching television: not at all 8. Moving or speaking so slowly that other people could have noticed. Or the opposite - being so fidgety or restless that you have been moving around a lot m ore than usual: not at all 9. Thoughts that you would be better off or of hurting yourself in some way: not at all Total score: 2 Depression Screening Interpretation: Positive Depression Screening Done: Yes Source: Developed by Drs. Riaz Cody, Jan Rasmussen and colleagues, with an educational bishop from [employer]. Thrive Questionnaire Date Thrive assessed: 02/09/24 I am a: Patient What is your living situation today?: I choose not to answer this question Within the past 12 months, did the food you bought not last and you didn't have the money to get more?: I choose not to answer this question Within the past 12 months, did you worry whether your food would run out before you got money to buy more?: I choose not to answer this question Do you have trouble paying for medicines?: I choose not to answer this question Do you have trouble getting transportation to medical appointments?: No Do you have trouble paying your heating and electricity bill?: I choose not to answer this question Do you have trouble taking care of your child, family member or friend?: No Do you have trouble with day-to-day activities such as bathing, preparing meals, shopping, managing finances, etc.?: No Are you currently unemployed and looking for a job?: I choose not to answer this question Are you interested in more education?: Yes Please select the resources that you would like help with: None Currently or been in a relationship where the following occur: I choose not to answer THRIVE Score: 0 EFRA-7 AMB Questionnaire EFRA-7 Date EFRA - 7 assessed: 06/28/24 Worrying too much about different things: 1 = Several days Trouble relaxin = Several days Being so restless that it is hard to sit still: 0 = Not at all Becoming easily annoyed or irritable: 0 = Not at all Feeling afraid as if something awful might happen: 0 = Not at all Source: Developed by Drs. Riaz Cody, Jan Rasmussen and colleagues, with an educational bishop from [employer]. Review of Systems Const Denies body aches Card Denies chest pain and Denies dyspnea Resp Denies dyspnea Musc Reports as per HPI and Denies abnormal gait Neuro Denies abnormal gait Psych Reports no additional complaints Physical exam (Primary Care) Vital Signs: Last Vital Signs Temp 97.1 F 06/28/24 09:17 Pulse 84 06/28/24 09:17 BP 130/70 06/28/24 09:17 Pulse Ox 99 06/28/24 09:17 Oxygen Delivery Method Room Air 06/28/24 09:17 BMI result Body Mass Index 33.5 Tobacco/Smoking Status: Tobacco use Status Tobacco use date assessed 06/28/24 06/28/24 09:40 Patient Tobacco Use Status Never used Tobacco 06/28/24 09:40 Tobacco use type 11/03/23 15:07 e-Cigarette/Vaping Use Never Used 06/28/24 09:40 PHQ-9: PHQ-9 Score PHQ-9: Total score 2 06/28/24 09:59 Depression Screening Interpretation: Positive Thrive Assessment: Date of Thrive Assessment Date Thrive assessed 02/09/24 06/28/24 09:40 Currently or been in a relationship where the following occur: I choose not to answer Const General: cooperative, healthy appearing, comfortable and no acute distress Orientation/consciousness: patient oriented x3 HENMT Head: Yes normocephalic Ears: hearing grossly normal bilaterally General nose exam: Normal external nose present Eyes General: appearance normal, both eyes and all related structures Conjunctivae: conjunctivae normal Neck Neck: Yes full ROM and Yes no lymphadenopathy Resp Effort & Inspection: normal respiratory effort Cardio Rate: regular rate Skin General skin exam: no rashes or lesions noted Neuro General: patient oriented x3 Gait exam (Neuro): Normal gait present Extrem Other: No tenderness to palpation over bilateral knees or ankles. Pain with dorsiflexion of the right foot. No pain with flexion or extension of the right knee. Strength, sensation, pulses intact in bilateral lower extremities. No overlying skin changes and no tenderness to bilateral calves. General: Yes normal to inspection, Yes full ROM and No edema Psych Affect: normal affect Attitude: cooperative Insight: Good insight present (Psych) Judgement: Good judgement present (Psych) Coding Level of Care Code Est Pt Level 3 (78814) Diagnoses Right ankle pain M25.571 Right knee pain M25.561 Assessment & Plan Assessment & Plan (1) Right ankle pain: Code(s): M25.571 - Pain in right ankle and joints of right foot Category: Medical Plan: Plans include obtaining X-rays of the right ankle and right knee for diagnostic clarification, followed by a referral to orthopedics to discuss potential management options further. This approach ensures a clearer understanding of the underlying issue and allows for coordinated care tailored to her communication preferences. Pending the X-ray results, further diagnostic and therapeutic steps will be considered, with ongoing management to be adapted accordingly. Plan to refer to physical therapy as well. Patient may continue to use nabumetone as needed for pain and cyclobenzaprine as needed for pain. (2) Right knee pain: Code(s): M25.561 - Pain in right knee Category: Medical Plan: See above Plan This note was constructed using voice recognition software. While every effort has been made to ensure accuracy and regional administrative assistant, still areas may have been included sometimes these areas may affect the content or meeting of the given symptoms. Total time spent caring for the patient today was 20 minutes. This includes time spent before the visit reviewing the chart, time spent during the visit, and time spent after the visit and documentation. Patient was informed and verbally consented to the use of an ambient scribe for clinic note documentation during this visit. Orders: Orders PT Evaluation and Treatment Today M25.561 - Pain in right knee, M25.571 - Pain in right ankle and joints of right foot XR knee RT 2V Today M25.561 - Pain in right knee XR ankle RT 2V Today M25.571 - Pain in right ankle and joints of right foot
[2024-06-28 09:17] VITALS: BP 130/70; PULSE 84; TEMP 36.2; O2SAT 99; BMI 33.5
--- OUTSIDE RECORDS SUMMARY | 2024-06-28 10:30 | XMS_ITS | Encounter Summary ---
Author Organization [facility] Address [address] [address] Phone Care Team Providers Care Trousseau Consultant Name Role Phone Guevara Shah MD Primary Care Provider [phone] Reason for Visit * Reason Onset Date Comments Med Refill 06/12/2024 Encounter Details Date Type Department Care Team (Late st Contact Info) Description 06/12/2024 Refill [facility] [address] [place] [address] Guevara Shah MD [address] [address] Social History Tobacco Use Types Packs/Day Years Used Date Smoking Tobacco: Never Smokeless Tobacco: Never Alcohol Use Standard Drinks/Week Comments No 0 (1 standard drink = 0.6 oz pur e alcohol) Comments Unknown Sex and Gender Information Value Date Recorded Sex Assigned at Not on file Legal Sex Female 5:10 PM EST Gender Identity Not on file Sexual Orientation Not on file documented as of this encounter Miscellaneous Notes * Telephone Encounter - Oliva James - 06/19/2024 12:51 PM EDT Message sent to Dr. Shah. documented in this encounter Plan of Treatment Not on file documented as of this encounter Visit Diagnoses Not on filedocumented in this encounter Care Teams Trousseau Consultant Relationship Specialty Start Date End Date Guevara Shah MD [address] [address] PCP - General Nephrology 11/13/22 documented as of this encounter
--- OUTSIDE RECORDS SUMMARY | 2024-06-28 10:30 | XMS_ITS | Clinical Summary ---
Author Organization [employer] [facility] Address [address] [facility] 7 [place] [address] Care Team Providers Care Case Management Manager Name Role Phone Unavailable Primary Care Provider [...] Screening 1970 SDOH Screening 1970 Sigmoidoscopy 1970 Disability Screening 1970 Alcohol/Substance Use Screening 1982 Tobacco Screening [...] Vaccine (#1) 2023 Dental X-Ray: Bitewings 01/17/2024 01/16/20, 01/15/2023 RSV Patients and Patients Aged 60 [...] patient's age to complete this topic Meningococcal B Vaccine Aged Out No l onger eligible based on patient's age to complete [...]
--- OUTSIDE RECORDS SUMMARY | 2024-06-28 10:31 | XMS_ITS | Clinical Summary ---
Author Organization [facility] Address [address] [address] Phone Care Team Providers Care Triage Rn Name Role Phone Guevara Shah MD Primary Care Provider [phone] Allergies No known active allergies Medications amitriptyline [...] Blood in urine 07/10/2020 Renal stone 07/10/2020 Encounters Date Type Department Care Team Description 06/12/2024 3:15 PM EDT Office Visit [facility] [address] [place] [address] Guevara Shah MD Renal stone (Primary Dx) 06/12/2024 Refill [facility] [address] [place] [address] Guevara Shah MD 06/12/2024 Refill [facility] [address] [place] [address] Guevara Shah MD from Last 3 Months Family History Medical History Relation Comments Diabetes [...] Sign Reading Time Taken Comments Blood Pressure 110/80 06/12/2024 2:36 PM EDT Pulse 75 06/12/2024 2:36 PM EDT Temperature - - Respiratory Rate - - Oxygen Saturation 98% 06/12/2024 2:36 PM EDT Inhaled Oxygen Concentration - - Weight 84.2 kg (185 lb 9.6 oz) 06/12/2024 2:36 P M EDT Height - - Body Mass Index - - Plan of Treatment Health Maintenance Due Date Last Done Comments Breast Cancer Screening 1970 Hepatitis B Vaccine (1 of 3 - 19+ 3-dose series) 02/27 Pneumococcal Vaccine: 50+ Years (1 of 2 - PCV) 990 Colorectal Cancer Screening: Annual FOBT 2019 Colorectal Cancer Screening: Colonoscopy 2019 Colorectal Cancer Screening: Sigmoidoscopy 2019 Influenza Vaccine (Season Ended) 2024 Insurance [facility] Medicaid Care Teams Triage Rn Relationship Specialty Start Date End Date Guevara Shah MD [address] [address] PCP - General Nephrology 11/13/22
--- OUTSIDE RECORDS SUMMARY | 2024-06-28 10:31 | XMS_ITS | Encounter Summary ---
Author Organization [facility] Address [address] [address] Phone Care Team Providers Care Allergist/Md Name Role Phone Guevara Shah MD Primary Care Provider [phone] Reason for Visit * Reason Onset Date Comments Med Refill 06/12/2024 Encounter Details Date Type Department Care Team (Late st Contact Info) Description 06/12/2024 Refill [facility] [address] [place] [address] Guevara Shah MD [address] [address] Social History Tobacco Use Types [...] on file documented as of this encounter Plan of Treatment Not on file documented as of this encounter Visit Diagnoses Not on filedocumented in this encounter Care Teams Allergist/Md Relationship Specialty Start Date End Date Guevara Shah MD [address] [address] PCP - General Nephrology 11/13/22 documented as of this encounter
== END 2024-06-28 10:25 | disposition home or self-care (01) ==
LOC: HO.HMCH 09:12
PROVIDERS: PCP Internal Medicine
DX: M25.571 Pain in right ankle and joints of right foot (principal); M25.561 Pain in right knee

== ENCOUNTER 2024-06-28 09:11 | Outpatient (REF) | payer OTHER, SELFPAY ==
--- NOTE | ~2024-06-28 | XR_ITS ---
EXAMINATION: XR ANKLE, RIGHT CLINICAL INFORMATION: M25.571 - Pain in right ankle and joints of right foot COMPARISON: None available. TECHNIQUE: AP, lateral, and mortise views of the right ankle. FINDINGS: No acute cortical disruption or malalignment. No gross joint effusion. No lytic or blastic lesion. No subcutaneous emphysema. No metallic or radiopaque foreign body. No spur in the calcaneus. XR/XR ankle RT 2V IMPRESSION: No acute fracture or dislocation. Negative x-ray. Electronically signed by: Gigi Guevara MD 06/28/2024 10:59 AM EDT
--- NOTE | ~2024-06-28 | XR_ITS ---
EXAMINATION: XR KNEE, RIGHT CLINICAL INFORMATION: M25.561 - Pain in right knee COMPARISON: August 08, 2019. TECHNIQUE: AP and lateral views of the right knee. FINDINGS: Joint space narrowing involving the medial compartment with associated sclerosis along the articular surface of the medial tibial plateau. No acute cortical disruption or malalignment. No suprapatellar bursa joint effusion. No lytic or blastic lesions. No metallic or radiopaque foreign body. No subcutaneous emphysema. XR/XR knee RT 2V IMPRESSION: Medial compartment osteoarthrosis slight worsening since prior exam. Electronically signed by: Gigi Guevara MD 06/28/2024 10:58 AM EDT
--- OUTSIDE RECORDS SUMMARY | 2024-06-28 11:53 | XMS_ITS | Clinical Summary ---
Author Organization [facility] [facility] Address [address] [facility] 7 [place] [address] Care Team Providers Care Telecommunications Technician Name Role Phone Unavailable Primary Care Provider [...]
--- OUTSIDE RECORDS SUMMARY | 2024-06-28 11:53 | XMS_ITS | Clinical Summary ---
Author Organization [facility] Address [address] [address] Phone Care Team Providers Care Hospital Scientist Name Role Phone Guevara Shah MD Primary Care Provider [phone] Allergies No known active allergies Medications amitriptyline [...] [facility] [address] [place] [address] Guevara Shah MD Renal stone (Primary Dx) 06/12/2024 Refill [facility] [address] [place] [address] Guevara Shah MD 06/12/2024 Refill [facility] the [address] [place] [address] Guevara Shah MD from Last 3 Months [...] 2019 Influenza Vaccine (Season Ended) 2024 Insurance [facility] Medicaid Care Teams Hospital Scientist Relationship Specialty Start Date End Date Guevara Shah MD [address] [address] PCP - General Nephrology 11/13/22
--- OUTSIDE RECORDS SUMMARY | 2024-06-28 11:53 | XMS_ITS | Encounter Summary ---
Author Organization [facility] Address [address] [address] Phone Care Team Providers Care Hyperbaric Technician Name Role Phone Guevara Shah MD Primary Care Provider [phone] Reason for Visit * Reason Onset Date Comments Med Refill 06/12/2024 Encounter Details Date Type Department Care Team (Late st Contact Info) Description 06/12/2024 Refill [facility] [address] [place] [address] Guevara Shah MD [address] [address] Social History Tobacco Use Types [...] on filedocumented in this encounter Care Teams Hyperbaric Technician Relationship Specialty Start Date End Date Guevara Shah MD [address] [address] PCP - General Nephrology 11/13/22 documented as of this encounter
--- OUTSIDE RECORDS SUMMARY | 2024-06-28 11:53 | XMS_ITS | Encounter Summary ---
Author Organization [facility] Address [address] [address] Phone Care Team Providers Care Sound Technician Supervisor Name Role Phone Guevara Shah MD Primary Care Provider [phone] Reason for Visit * Reason Onset Date Comments Med Refill 06/12/2024 Encounter Details Date Type Department Care Team (Late st Contact Info) Description 06/12/2024 Refill [facility] [address] [place] [address] Guevara Shah MD [address] [address] Social History Tobacco Use Types [...] on filedocumented in this encounter Care Teams Sound Technician Supervisor Relationship Specialty Start Date End Date Guevara Shah MD [address] [address] PCP - General Nephrology 11/13/22 documented as of this encounter
== END 2024-06-28 09:12 | disposition home or self-care (01) ==
LOC: HO.XRAY 09:11
PROVIDERS: PCP Internal Medicine
DX: M25.571 Pain in right ankle and joints of right foot (principal); M25.561 Pain in right knee; I10 Essential (primary) hypertension; K21.9 Gastro-esophageal reflux disease without esophagitis; F32.9 Major depressive disorder, single episode, unspecified; G43.909 Migraine, unspecified, not intractable, without status migrainosus; E66.9 Obesity, unspecified; Z68.33 Body mass index [BMI] 33.0-33.9, adult
CPT/HCPCS: 73560; 73600; 99212

== ENCOUNTER → 2024-06-28 10:28 | Outpatient (BNV) | payer OTHER, SELFPAY | PROVIDERS: PCP Internal Medicine; Visit Provider Radiology Diagnostic Radiology | DX: M17.11 Unilateral primary osteoarthritis, right knee (principal); M25.571 Pain in right ankle and joints of right foot | CPT/HCPCS: 73560; 73600 ==

== ENCOUNTER 2024-08-10 16:19 | Outpatient (AMB) | payer OTHER, SELFPAY ==
--- OUTSIDE RECORDS SUMMARY | 2024-08-10 16:21 | XMS_ITS | Encounter Summary ---
Author Organization [facility] Address [address] [address] Phone Care Team Providers Care Cash Grain Grower Name Role Phone Guevara Shah MD Primary Care Provider [phone] Encounter Details Date Type Department Care Team (Late st Contact Info) Description 08/03/2024 Office Communication [facility]. [address] [phone] Guevara Shah MD [address] [phone] Social History Tobacco Use Types [...] encounter Miscellaneous Notes * Telephone Encounter - Guevara Shah MD - 08/03/2024 9:47 PM EDT Pls do not renew these meds as pt was seen by Dr Bishop in past and needs to see him or come as=nd see us in office if she wants meds renewed documented in this encounter Plan of Treatment Not on file documented as of this encounter Visit Diagnoses Not on filedocumented in this encounter Care Teams Cash Grain Grower Relationship Specialty Start Date End Date Guevara Shah MD [address] [phone] PCP - General Nephrology 11/13/22 documented as of this encounter
--- OUTSIDE RECORDS SUMMARY | 2024-08-10 16:21 | XMS_ITS | Clinical Summary ---
Author Organization [employer] Address [address] [facility] 7 [place] [address] Care Team Providers Care Digestion Operator Name Role Phone Unavailable Primary Care Provider [...] Vaccine ( - 2023-2 5 season) 2023 Dental X-Ray: Bitewings 01/17/2024 01/16/20 23, 01/15/2023 Influenza Vaccine (Season Ended) 2024 RSV Patients and Patients Aged 60 years [...]
--- NOTE | 2024-08-10 16:34 | A.OFFPC_ITS ---
Vital Signs 08/10/24 16:35 Height 5 ft 2 in Weight 184 lb 8 oz BMI 33.7 BP 116/76 Blood Pressure Location Lt brachial Position Sitting Pulse 78 Pulse Source Pulse Oximeter Pulse Oximetry (%) 99 Oxygen Delivery Method Room Air Intake Visit Reasons: back pain Floatlight Loading Supervisor Required: No Accompanied by: Self / Same As Patient Allergies Latex, Natural Rubber (LATEX, NATURAL RUBBER) Allergy (Intermediate, Verified 08/10/24 17:03) RASH Medication List - Last Reconciled 08/10/24 by Zari Clemons MD amitriptyline 25 mg PO BEDTIME 90 days cholecalciferol (vitamin D3) 50 mcg PO DAILY 90 days cyclobenzaprine 10 mg PO BEDTIME PRN 90 days pantoprazole 40 mg PO DAILY pyridoxine (vitamin B6) 100 mg PO DAILY 90 days sennosides (Natural Senna Laxative) 8.6 mg PO BEDTIME PRN sumatriptan succinate (Imitrex) 100 mg PO DAILY PRN 90 days [wrist splint wear nightly & as much as possible throughout the day] Tobacco use date assessed: 06/28/24 Dental Screening Dental Screen Date: 08/10/24 HPI HPI Comments History of Present Illness Details The patient is a 54-year-old female presenting with right ankle pain and chronic idiopathic constipation. The right ankle pain persists, and she plans to initiate physical therapy soon. Chronic idiopathic constipation has been stable with the use of Senna as needed. She has a history of a thyroid nodule, which was evaluated by ultrasound a year ago, revealing a single nodule without parathyroid adenoma. A follow-up ultrasound is planned for this year. Her migraines are well-controlled with sumatriptan as needed, and she takes amitriptyline at bedtime for prophylaxis. The patient has low vitamin D levels and is on supplementation. She also has gastroesophageal reflux disease managed with pantoprazole. She has a history of microalbuminuria, which is currently in remission. The patient has a history of nephrolithiasis, but recent ultrasound showed no kidney stones. She reports intermittent low back pain. [facility] Medical History (Updated 08/11/24 @ 07:29 by Zari Clemons MD) History of abnormal cervical Pap smear Essential hypertension Lumbar pain Mild recurrent major depression Obesity (BMI 30-39.9) Polyarthralgia Urge urinary incontinence Migraines Leukocytosis Depression Renal calculi Surgical History History of carpal tunnel surgery Hx of cystoscopy History of colonoscopy History of surgery Hx of tubal ligation Hx of laparoscopy Hx of lithotripsy Family History Mother Hx of diabetes mellitus Maternal Grandfather Family hx of prostate cancer Paternal Uncle Family hx of prostate cancer History of skin cancer Sister No problems noted. Paternal Uncle Prostate cancer Maternal Aunt Seizure Father Oxygen dependent Social History Household Members: Children Housing: House Are you a primary physician assistant primary care to a significant other at home: No Do you presently have visiting nurse or other home services: No Alcohol intake: never Comment: sleeping Patient Tobacco Use Status: Never used Tobacco e-Cigarette/Vaping Use: Never Used Second Hand Smoke Exposure: No service: No Current occupational status: employed Current occupation: works at [employer] in the [employer]/ [employer] Current occupational exposures/hazards: No Cognitive needs: No Hearing needs: No Vision needs: No Female Reproductive History Menstrual Age of Menarche: 14 Questionnaire Thrive Questionnaire Date Thrive assessed: 08/10/24 I am a: Patient What is your living situation today?: I choose not to answer this question Within the past 12 months, did the food you bought not last and you didn't have the money to get more?: I choose not to answer this question Within the past 12 months, did you worry whether your food would run out before you got money to buy more?: I choose not to answer this question Do you have trouble paying for medicines?: I choose not to answer this question Do you have trouble getting transportation to medical appointments?: No Do you have trouble paying your heating and electricity bill?: I choose not to answer this question Do you have trouble taking care of your child, family member or friend?: No Do you have trouble with day-to-day activities such as bathing, preparing meals, shopping, managing finances, etc.?: No Are you currently unemployed and looking for a job?: I choose not to answer this question Are you interested in more education?: Yes Please select the resources that you would like help with: None Currently or been in a relationship where the following occur: I choose not to answer THRIVE Score: 0 EFRA-7 AMB Questionnaire EFRA-7 Date EFRA - 7 assessed: 06/28/24 Source: Developed by Drs. Riaz Cody, Felipa Stroud, Jan Mckeon and colleagues, with an educational bishop from [employer]. Review of Systems Const All systems reviewed & are unremarkable except as noted in HPI and below Card Denies chest pain at rest, Denies chest pain with activity, Denies edema, Denies irregular heart rhythm, Denies claudication, Denies dyspnea, Denies dyspnea on exertion, Denies orthopnea, Denies paroxysmal nocturnal dyspnea and Denies slow heart rate Resp Denies cough, Denies dyspnea and Denies dyspnea on exertion GI Denies abdominal pain, Denies change in bowel habits, Denies excessive flatus, Denies nausea and Denies vomiting Musc Reports back pain and Reports arthralgias Physical exam (Primary Care) Vital Signs: Last Vital Signs Pulse 78 08/10/24 16:35 BP 116/76 08/10/24 16:35 Pulse Ox 99 08/10/24 16:35 Oxygen Delivery Method Room Air 08/10/24 16:35 BMI result Body Mass Index 33.7 BMI Assessment/Plan discussion: High BMI High, discussed plan: lifestyle, weight reduction, dietary and physical activity Tobacco/Smoking Status: Tobacco use Status Tobacco use date assessed 06/28/24 08/10/24 16:34 Patient Tobacco Use Status Never used Tobacco 08/10/24 16:34 Tobacco use type 11/03/23 15:07 e-Cigarette/Vaping Use Never Used 08/10/24 16:34 Thrive Assessment: Date of Thrive Assessment Date Thrive assessed 08/10/24 08/10/24 16:36 Currently or been in a relationship where the following occur: I choose not to answer Resp Effort & Inspection: normal respiratory effort Auscultation: clear to auscultation bilaterally Cardio Jugular venous distension: no JVD Rate: regular rate Rhythm: regular rhythm Heart sounds: S1 normal heart sound present and S2 normal heart sound present Extrem General: Yes full ROM Coding Level of Care Code Est Pt Level 4 (07018) Complex EM visit Add On G2211 Diagnoses Mild recurrent major depression F33.0 Thyroid nodule E04.1 Chronic idiopathic constipation K59.04 Right ankle pain M25.571 Migraine without status migrainosus, not intractable, unspecified migraine type G43.909 Migraine type: unspecified Status migrainosus presence: without status migrainosus Intractability: not intractable Chronic GERD K21.9 Time Spent (min) 21 Assessment & Plan Assessment & Plan (1) Mild recurrent major depression: Code(s): F33.0 - Major depressive disorder, recurrent, mild Category: Medical (2) Thyroid nodule: Code(s): E04.1 - Nontoxic single thyroid nodule Category: Medical (3) Chronic idiopathic constipation: Code(s): K59.04 - Chronic idiopathic constipation Category: Medical (4) Right ankle pain: Code(s): M25.571 - Pain in right ankle and joints of right foot Category: Medical (5) Migraines: Code(s): G43.909 - Migraine, unspecified, not intractable, without status migrainosus Category: Medical Qualifiers: Migraine type: unspecified Status migrainosus presence: without status migrainosus Intractability: not intractable Qualified Code(s): G43.909 - Migraine, unspecified, not intractable, without status migrainosus (6) Chronic GERD: Code(s): K21.9 - Gastro-esophageal reflux disease without esophagitis Category: Medical Plan The patient will begin physical therapy for her persistent right ankle pain. Chronic idiopathic constipation will continue to be managed with Senna as needed. A follow-up ultrasound for the thyroid nodule is planned for this year to monitor any changes. Her migraines will continue to be managed with sumatriptan as needed and amitriptyline for prophylaxis. The patient will maintain vitamin D supplementation to address low levels. Gastroesophageal reflux disease will continue to be managed with pantoprazole. Microalbuminuria is in remission and will be monitored. The patient will continue her current management for nephrolithiasis, with no current evidence of kidney stones. Patient was informed and verbally consented to the use of an ambient scribe for clinic note documentation during this visit. Orders: Orders US thyroid 08/10/24 E04.1 - Nontoxic single thyroid nodule
[2024-08-10 16:35] VITALS: BP 116/76; PULSE 78; O2SAT 99; BMI 33.7
== END 2024-08-10 17:16 | disposition home or self-care (01) ==
LOC: HO.HMCH 16:19
PROVIDERS: PCP Internal Medicine; Visit Provider Internal Medicine
DX: F33.0 Major depressive disorder, recurrent, mild (principal); E04.1 Nontoxic single thyroid nodule; K59.04 Chronic idiopathic constipation; M25.571 Pain in right ankle and joints of right foot; G43.909 Migraine, unspecified, not intractable, without status migrainosus; K21.9 Gastro-esophageal reflux disease without esophagitis

== ENCOUNTER → 2024-08-10 16:19 | Outpatient (BNVA) | payer OTHER, SELFPAY | PROVIDERS: PCP Internal Medicine; Visit Provider Internal Medicine | DX: F33.0 Major depressive disorder, recurrent, mild (principal); E04.1 Nontoxic single thyroid nodule; M25.571 Pain in right ankle and joints of right foot; K59.04 Chronic idiopathic constipation; G43.909 Migraine, unspecified, not intractable, without status migrainosus; K21.9 Gastro-esophageal reflux disease without esophagitis | CPT/HCPCS: 99212 ==

== ENCOUNTER 2024-08-17 13:52 | Outpatient (RCR) | payer OTHER, SELFPAY ==
--- NOTE | 2024-08-17 14:57 | MHC.PT.EP ---
[facility] [place] Office [place] Office [place] Office [address] Shazia Treviño 140 [facility] [phone] F: [phone] F: [phone] F: [phone] F: [phone] Physical Therapy Plan of Care Date of Evaluation: 08/17/24 Date of Surgery: Diagnosis: This is a 54 yo female presenting to skilled PT with a script for R ankle pain. Assessment: This is a 54 yo female presenting to skilled PT with a script for R ankle pain. Patient reporting ongoing ankle pain now for about 3 months now. She does not recall any current injury that caused this pain but does report a fall 15 years ago in [place] when she fell down the stairs. Pain is located posteriorly at Achilles and wraps medially to the medial ankle joint. Pain is described as uncomfortable with mild swelling at times. Pain increases with walking, stairs, driving and at the end of the day. Pain improves with sitting and resting; declines constant pain. She reports an antalgic gait. She can continue to do her daily routine but has difficulty with this. Assessment reveals pain with ambulation and weight bearing activities, decreased R ankle ROM, strength of R hip and ankle, TTP at achilles and medial ankle joint, decreased balance in SLS on the R and impaired posture with knee valgus, forward head and rounded shoulders. Based on functional limitations, impaired QOL and pain tolerance patient is a good candidate for skilled PT 2x/wk for 4wks. Frequency and Duration: The patient will be seen 2x/wk for 4 wks (can only do 6am so will do 1x/wk) Short Term Goals: (in 2 weeks) Patient will improve ankle AROM by at least 3 degs without assist or pain in all directions Patient will be I in HEP Improve SLS by at least 10 secs Sewer Contractor Goals: (in 4 weeks) Patient will report 75% improvement in balance and strength of LLE as evidenced by reports no of falls or buckling in LE Patient will improve LEFs by 10 points Patient will demo WFL AROM of knee and ankle Patient will demo proper squat and lift techniques without increase in pain Treatment Plan: Modalities to reduce pain, spasms and effusion. Manual therapy to restore motion and function. Therapeutic exercise to improve strength and flexibility. Neuromuscular re-education for posture and balance. Therapeutic activities to return to functional activities of daily living. Electronically signed by: Meredith Cobos PT Please sign and return to therapist. Thank you for your referral.
--- NOTE | 2024-09-22 08:36 | MHC.PT.DC ---
[facility] [place] [facility] [place] [facility] [place] [facility] [address] Shazia Treviño [address] [phone] F: [phone] F: [phone] F: [phone] F: [phone] Physical Therapy Discharge Report Diagnosis: This is a 54 yo female presenting to skilled PT with a script for R ankle pain. Date of Surgery: Date of Evaluation: 08/17/24 Date of Discharge: 09/22/24 Treatments to Date: 1 Cancellations to Date: 0 No Shows to Date: 0 Discharge Status: Patient Elected to Stop Visit Non-compliance Discharge Summary: Patient came to the eval and proceeded to cancel the remaining appointments. Chart was closed for visit noncompliance. Electronically signed by: Meredith Cobos PT Please sign and return to therapist. Thank you for your referral.
== END 2024-09-22 08:36 | disposition home or self-care (01) ==
LOC: HO.PTCHIC 13:52
PROVIDERS: PCP Internal Medicine
DX: M25.571 Pain in right ankle and joints of right foot (principal); M25.561 Pain in right knee
CPT/HCPCS: 97110; 97161; 97162

== ENCOUNTER 2024-09-06 15:55 | Outpatient (AMB) | payer OTHER, SELFPAY ==
[2024-09-06 16:23] VITALS: BP 110/72; PULSE 79; TEMP 36.6; O2SAT 100; BMI 34.0
--- NOTE | 2024-09-06 16:23 | MHC.OFFWIV ---
Intake Vital Signs 09/06/24 16:23 Height 5 ft 2 in Weight 186 lb BMI 34.0 BP 110/72 Blood Pressure Location Lt brachial Position Sitting Pulse 79 Pulse Source Pulse Oximeter Temp 97.9 F Temp Source Oral Pulse Oximetry (%) 100 Oxygen Delivery Method Room Air Intake Visit Reasons: EP Splinter in middle finger on RT hand Intake Note: presents with swelling, stabbing pain and pulsating to right middle finger from an imbedded splinter Patient Tobacco Use Status: Never used Tobacco Allergies Latex, Natural Rubber (LATEX, NATURAL RUBBER) Allergy (Intermediate, Verified 09/06/24 16:28) RASH Medication List - Last Reconciled 09/06/24 by Luiza Cruz PA-C amitriptyline 25 mg PO BEDTIME 90 days cephalexin 500 mg PO Q6H cholecalciferol (vitamin D3) 50 mcg PO DAILY 90 days cyclobenzaprine 10 mg PO BEDTIME PRN 90 days pantoprazole 40 mg PO DAILY pyridoxine (vitamin B6) 100 mg PO DAILY 90 days sennosides (Natural Senna Laxative) 8.6 mg PO BEDTIME PRN sumatriptan succinate (Imitrex) 100 mg PO DAILY PRN 90 days [wrist splint wear nightly & as much as possible throughout the day] Do you need a note to return to daycare/school/sports/work: No HPI HPI Comments History of Present Illness Details History of Present Illness - The patient is a 54-year-old [place]an speaking female presenting an site interpreter for a splinter in her finger and concerns about a possible infection. - The splinter has been present since last Wednesday. - The patient attempted to remove the splinter, but a piece remains embedded. - The patient has been soaking the finger to alleviate the condition. - The finger is now red and swollen, raising concerns of infection. - She has pain when she touches the area. - She denies fever, chills, discharge or bleeding. - She has no numbness, tingling, or joint pain. General: Cooperative, healthy appearing, comfortable, no acute distress and well developed Respiratory: Normal respiratory effort and able to speak in complete sentences. Clear to auscultation bilaterally Cardiovascular: Regular rate and rhythm. Normal S1 and S2 Skin: No rashes or lesions noted. Neuro: Sensation intact Extremities: Erythema noted on the distal phalanx of the right 3rd digit. Small splinter noted in the distal phalanx. No discharge noted. No bleeding noted. Flexion and extenstion of the 3rd digit at the DIP, PIP, and MCP joints noted intact. No TTP of the distal phalanx of the 3rd right digit. [facility] Medical History (Updated 08/11/24 @ 07:29 by Zari Clemons MD) History of abnormal cervical Pap smear Essential hypertension Lumbar pain Mild recurrent major depression Obesity (BMI 30-39.9) Polyarthralgia Urge urinary incontinence Migraines Leukocytosis Depression Renal calculi Surgical History History of carpal tunnel surgery Hx of cystoscopy History of colonoscopy History of surgery Hx of tubal ligation Hx of laparoscopy Hx of lithotripsy Family History Mother Hx of diabetes mellitus Maternal Grandfather Family hx of prostate cancer Paternal Uncle Family hx of prostate cancer History of skin cancer Sister No problems noted. Paternal Uncle Prostate cancer Maternal Aunt Seizure Father Oxygen dependent Social History Household Members: Children Housing: House Are you a primary adult daycare coordinator to a significant other at home: No Do you presently have visiting nurse or other home services: No Alcohol intake: never Comment: sleeping Patient Tobacco Use Status: Never used Tobacco e-Cigarette/Vaping Use: Never Used Second Hand Smoke Exposure: No service: No Current occupational status: employed Current occupation: works at [employer] in the [employer] department/ [employer] [address] Current occupational exposures/hazards: No Cognitive needs: No Hearing needs: No Vision needs: No Female Reproductive History Menstrual Age of Menarche: 14 Review of Systems Const All systems reviewed & are unremarkable except as noted in HPI and below Physical Exam Vital Signs: Last Vital Signs Temp 97.9 F 09/06/24 16:23 Pulse 79 09/06/24 16:23 BP 110/72 09/06/24 16:23 Pulse Ox 100 09/06/24 16:23 Oxygen Delivery Method Room Air 09/06/24 16:23 BMI result Body Mass Index 34.0 Office Procedures AMB Foreign Body Removal Details: Area cleaned with alcohol and normal saline. 18 guage needle to extract the splinter piece in the right digit. Cleaned with alcohol. Bacitracin ointment and bandaid applied. Procedure was well tolerated. Foreign Body Removal Simple: [id number], simple Procedure code (CPT) selection complete Assessment & Plan Assessment & Plan (1) Foreign body finger: Code(s): S60.459A - Superficial foreign body of unspecified finger, initial encounter Plan Most likely splinter of finger removed in the office today plan- - soak finger in epsom salt - keflex 500 mg BID for 10 days - tylenol or motrin as needed for pain - advised her to watch the finger for redness, discharge, streaking, etc - follow up with PCP Orders: Orders AMB Removal of foreign body Today L08.9 - Local infection of the skin and subcutaneous tissue, unspecified, S60.459A - Superficial foreign body of unspecified finger, initial encounter Medications: New cephalexin 500 mg PO Q6H 28 caps 0RF Coding Level of Care Code Est Pt Level 4 (19314) Diagnoses Foreign body finger S60.459A CPT Codes Details - Foreign body simple: [id number], simple ([id number])
--- OUTSIDE RECORDS SUMMARY | 2024-09-06 16:24 | XMS_ITS | Clinical Summary ---
Author Organization [employer] Address [address] [facility] 7 [place] [address] Care Team Providers Care Analyst Name Role Phone Unavailable Primary Care Provider [...] Vaccines (1 of 2) 02/28/2020 COVID-19 Vaccine (1 - 2023-2 5 season) 2023 Dental X-Ray: Bitewings 01/17/2024 01/16/20 23, 01/15/2023 Influenza Vaccine (#1) 2024 RSV Patients and Patients Aged 60 [...]
--- OUTSIDE RECORDS SUMMARY | 2024-09-06 16:24 | XMS_ITS | Encounter Summary ---
Author Organization [facility] Address [address] [address] Phone Care Team Providers Care Manager Delivery Name Role Phone Guevara Shah MD Primary Care Provider [phone] Encounter Details Date Type Department Care Team (Late st Contact Info) Description 08/03/2024 Office Communication [facility]. [address] [phone] Guevara Shah MD [address] [phone] Social History Tobacco Use Types [...] on filedocumented in this encounter Care Teams Manager Delivery Relationship Specialty Start Date End Date Guevara Shah MD [address] [phone] PCP - General Nephrology 11/13/22 documented as of this encounter
== END 2024-09-06 17:08 | disposition home or self-care (01) ==
PROVIDERS: PCP Internal Medicine; Visit Provider Physician Assistant Medical
DX: S60.452A Superficial foreign body of right middle finger, initial encounter (principal)

== ENCOUNTER → 2024-09-06 15:55 | Outpatient (BNVA) | payer OTHER, SELFPAY | PROVIDERS: PCP Internal Medicine; Visit Provider Physician Assistant Medical | DX: S60.452A Superficial foreign body of right middle finger, initial encounter (principal); L08.9 Local infection of the skin and subcutaneous tissue, unspecified; X58.XXXA Exposure to other specified factors, initial encounter; Y93.9 Activity, unspecified; Y92.9 Unspecified place or not applicable; Y99.9 Unspecified external cause status | CPT/HCPCS: 10120; 99212 ==

== ENCOUNTER 2024-09-08 14:16 | Outpatient (REF) | payer OTHER, SELFPAY ==
--- NOTE | ~2024-09-08 | US_ITS ---
EXAMINATION: US THYROID CLINICAL INFORMATION: Nontoxic single thyroid nodule. COMPARISON: March 02, 2023. Correlated to Nuclear scan parathyroid dated March 24, 2023 reported negative. TECHNIQUE: Linear transducer grayscale and color Doppler examination with attention to the region of the thyroid. FINDINGS: SIZE: Measurements of the thyroid lobes and nodules are given in sagittal, anteroposterior and transverse dimensions respectively. Right Thyroid Lobe: 4.0 x 1.6 x 1.5 cm, volume 5.0 mL. Previous: 3.6 x 2.0 x 1.7 cm and volume: 6.1 cc. Parenchyma: The gland echotexture is normal. Thyroid vascularity is normal. Left Thyroid Lobe: 3.4 x 1.1 x 1.2 cm, volume 2.4 mL. Previous: 3.3 x 1.3 x 1.1 cm, volume: 2.5 cc. Parenchyma: The gland echotexture is normal. Thyroid vascularity is normal. Isthmus: 0.2 cm in maximum AP dimension. Previous: 0.2 cm. Estimated total number of nodules greater than or equal to 1 cm: 0. Shipping Hand nodules are described as follows: 1. Location: Right thyroid lobe midportion.. Size: 0.5 x 0.2 x 0.2 cm, volume 0.01 mL. Previous: 0.5 x 0.4 x 0.5 cm. Nodule characteristics: Composition: Spongiform (0). Echogenicity: Anechoic (0). Shape: Not taller than wide (0). Margins: Smooth (0). Echogenic Foci: None (0). ACR TI-RADS total points: 0 ACR TI-RADS category: 1 US/US thyroid IMPRESSION: ACR TI-RADS category: 1 ACR TI-RADS RECOMMENDATION REFERENCE: Ultrasound-guided fine-needle aspiration, followup ultrasound, no further follow up. * TR1 (0 point) and TR2 (2 points): No FNA or follow up. * TR3 (3 points): FNA if more than or equal to 2.5 cm in maximum dimension, followup ultrasound in 1, 3 and 5 years if 1.5 to 2.4 cm in maximum dimension. * TR4 (4-6 points): FNA if more than or equal to 1.5 cm in maximum dimension, followup ultrasound in 1, 2, 3 and 5 years if 1 to 1.4 cm in maximum dimension. * TR5 (more than or equal to 7 points): FNA if more than or equal to 1 cm in maximum dimension, followup ultrasound every year for 5 years if 0.5 to 0.9 cm in maximum dimension. * TR3, TR4 or TR5 nodules that are below the size threshold for followup receive no follow up. Electronically signed by: Gigi Guevara MD 09/08/2024 02:59 PM EDT
--- OUTSIDE RECORDS SUMMARY | 2024-09-08 14:18 | XMS_ITS | Clinical Summary ---
Author Organization [employer] Address [address] [facility] 7 [place] [address] Care Team Providers Care Medicaid Biller Name Role Phone Unavailable Primary Care Provider [...]
--- OUTSIDE RECORDS SUMMARY | 2024-09-08 14:18 | XMS_ITS | Encounter Summary ---
Author Organization [facility] Address [address] [address] Phone Care Team Providers Care Wheat Inspector Name Role Phone Guevara Shah MD Primary Care Provider [phone] Encounter Details Date Type Department Care Team (Late st Contact Info) Description 08/03/2024 Office Communication [facility]. [address] [phone] Guevara Shah MD [address] [phone] Social History Tobacco Use Types [...] on filedocumented in this encounter Care Teams Wheat Inspector Relationship Specialty Start Date End Date Guevara Shah MD [address] [phone] PCP - General Nephrology 11/13/22 documented as of this encounter
== END 2024-09-08 14:17 | disposition home or self-care (01) ==
LOC: HO.HMGCX 14:16
PROVIDERS: PCP Internal Medicine; Visit Provider Internal Medicine
DX: E04.1 Nontoxic single thyroid nodule (principal)
CPT/HCPCS: 76536

== ENCOUNTER → 2024-09-08 14:20 | Outpatient (BNV) | payer OTHER, SELFPAY | PROVIDERS: PCP Internal Medicine; Visit Provider Radiology Diagnostic Radiology | DX: E04.1 Nontoxic single thyroid nodule (principal) | CPT/HCPCS: 76536 ==